=== PATIENT | male | born 1975 | race Caucasian/White ===

== ENCOUNTER 2019-02-07 18:39 | Emergency (ER) | payer SELFPAY ==
--- NOTE | 2019-02-07 18:50 | PDOC ---
Rapid Medical Evaluation Chief Complaint: Abscess Boil Time Seen by Provider: 02/07/19 18:47 Medical Evaluation: 02/07/19 18:48 Patient c/o: 1 week with redness and pain to left buttock, no fever, no diff w/ BM Patient on brief exam:palpable non fluctulant erythematous mass to lower left buttock, no perianal or rectal involvement Patient ordered for: none patient to proceed to the ED
[2019-02-07 18:56] VITALS: BP 121/71; PULSE 93; TEMP 99.6; BMI 27.8
--- NOTE | 2019-02-07 19:14 | PDOC ---
History of Present Illness - General Chief Complaint: Abscess Boil Stated Complaint: BACK PAIN/BILATERAL LEG PAIN Time Seen by Provider: 02/07/19 18:47 History Source: Patient Exam Limitations: No Limitations - History of Present Illness Initial Comments: 02/07/19 19:09 HISTORY OF PRESENT ILLNESS: 43-year-old male denies medical history presents emergency for for 1 week of left buttock pain. He denies any fevers, chills, discharge or drainage or perirectal pain. Patient denies any difficulty moving his bowels. No recent travel or sick contacts. PAST MEDICAL HISTORY: Denies past medical history SURGICAL HISTORY: Denies ALLERGIES: No known drug allergies REVIEW OF SYSTEMS General/Constitutional: Denies fever or chills. Denies weakness, weight change. HEENT: Denies change in vision. Denies ear pain or discharge. Denies sore throat. Cardiovascular: Denies chest pain or shortness of breath. Respiratory: Denies cough, wheezing, or hemoptysis. Gastrointestinal: Denies nausea, vomiting, diarrhea or constipation. Denies rectal bleeding. Genitourinary: Denies dysuria, frequency, or change in urination. Musculoskeletal: Denies joint or muscle swelling or pain. Denies neck or back pain. Skin and breasts: see HPI Neurologic: Denies headache, vertigo, loss of consciousness, or loss of sensation. Psychiatric: Denies depression or anxiety. Endocrine: Denies increased thirst. Denies abnormal weight change. Hematologic/Lymphatic: Denies anemia, easy bleeding, or history of blood clots. Allergic/Immunologic: Denies hives or skin allergy. Denies latex allergy. PHYSICAL EXAM General Appearance: Well-appearing, appropriately dressed. No apparent distress , no intoxication. Integumentary: 5 cm x 4 cm ovoid area of erythema present to the left buttock on the gluteal fold. No fluctuance is present. No extension into the anus or rectum. Past History - Past Medical History Allergies/Adverse Reactions: Allergies Allergy/AdvReac Type Severity Reaction Status Date / Time No Known Allergies Allergy Verified 02/07/19 18:48 Home Medications: Ambulatory Orders Cephalexin Monohydrate [Keflex -] 500 mg PO Q6H #28 capsule 02/07/19 Sulfamethoxazole/Trimethoprim [Bactrim Ds -] 1 tab PO BID #14 tablet 02/07/19 - Suicide/Smoking/Psychosocial Hx Smoking History: Never smoked *Physical Exam - Vital Signs Last Vital Signs Temp Pulse Resp BP Pulse Ox 99.6 F 93 H 16 121/71 99 02/07/19 18:45 02/07/19 18:45 02/07/19 18:45 02/07/19 18:45 02/07/19 18:45 Medical Decision Making - Medical Decision Making 02/07/19 19:14 A/P: 43-year-old male with cellulitis of his left buttock Discharge home with prescriptions for Keflex and Bactrim instructions to apply warm soaks. Patient given strict return precautions and is verbalized understanding of discharge instructions. Portions of this note have been documented using voice recognition software. As a result, errors may occur in the chrome tanning drum operator process. Effort has been made to correct all grammatical and chrome tanning drum operator error, but some may have been missed. *DC/Admit/Observation/Transfer Diagnosis at time of Disposition: Cellulitis of buttock, left - Discharge Dispostion Disposition: HOME Condition at time of disposition: Stable Decision to Admit order: No - Prescriptions Prescriptions: Cephalexin Monohydrate [Keflex -] 500 mg PO Q6H #28 capsule Sulfamethoxazole/Trimethoprim [Bactrim Ds -] 1 tab PO BID #14 tablet - Referrals - Patient Instructions Additional Instructions: Take Keflex 500 mg 4 times a day for the next 7 days Take Bactrim DS one tablet twice a day for the next 7 days Finish all antibiotics even if you feel better. Apply warm compresses to affected area as needed. Return to emergency department for any worsening pain, drainage, or any other concerns. Thank you very much for choosing us to provide your emergent health care needs. - Post Discharge Activity
== END 2019-02-07 19:26 | disposition home or self-care (01) ==
LOC: JERFT 18:39
DX: L03.317 Cellulitis of buttock (principal)
CPT/HCPCS: 99281-25

== ENCOUNTER 2019-02-10 08:01 | Emergency (ER) | payer SELFPAY ==
[2019-02-10 08:09] VITALS: BP 109/70; PULSE 87; TEMP 98.1; BMI 29.2
--- NOTE | 2019-02-10 08:43 | PDOC ---
History of Present Illness - General Chief Complaint: Revisit,Wound Recheck Stated Complaint: ABSCESS BOIL Time Seen by Provider: 02/10/19 08:28 History Source: Patient Exam Limitations: No Limitations - History of Present Illness Initial Comments: 02/10/19 08:37 43 year old male presentswith pain in left buttocks x 1-2 weeks. Patient seen here on Sunday for the same, treated with keflex and bactrim DS. Patient reports that pain persist to the area even though he is taking antibiotics as prescribed and tylenol for pain. Patient states that area is very tender. Denies fever, chills or worsening in symptoms but states symptoms persist. Occurred: reports: last week Severity: reports: mild Pain Location: reports: other (buttocks) Method of Injury: Yes: unknown Modifying Factors: worse with: None Associated Symptoms (Fall): denies symptoms Past History - Travel Traveled outside of the country in the last 30 days: No Close contact w/someone who was outside of country & ill: No - Past Medical History Allergies/Adverse Reactions: Allergies Allergy/AdvReac Type Severity Reaction Status Date / Time No Known Allergies Allergy Verified 02/07/19 18:48 Home Medications: Ambulatory Orders Cephalexin Monohydrate [Keflex -] 500 mg PO Q6H #28 capsule 02/07/19 Sulfamethoxazole/Trimethoprim [Bactrim Ds -] 1 tab PO BID #14 tablet 02/07/19 Ibuprofen 800 mg PO TID #20 tablet 02/10/19 COPD: No - Suicide/Smoking/Psychosocial Hx Smoking History: Never smoked Have you smoked in the past 12 months: No Information on smoking cessation initiated: No Hx Alcohol Use: No Drug/Substance Use Hx: No Trauma Specific PMHX - Complaint Specific PMHX Arthritis: No Back Injury: No Neck Injury: No Hx Sacro Iliac Joint Dysfunction: No Review of Systems - Review of Systems Constitutional: No: Chills, Fever, Weakness HEENTM: No: Hearing Loss, Throat Pain, Throat Swelling, Mouth Pain, Difficulty Swallowing, Mouth Swelling Respiratory: No: Wheezing Cardiac (ROS): No: Chest Pain, Syncope ABD/GI: No: Nausea, Poor Appetite, Poor Fluid Intake, Vomiting, Abdominal cramping : No: Burning, Hematuria, Testicular Swelling Musculoskeletal: No: Back Pain, Gout, Neck Pain Integumentary: Yes: Other (left buttocks pain). No: Erythema Neurological: No: Numbness, Paresthesia, Weakness Endocrine: No: Change in Weight Hematologic/Lymphatic: No: Anemia, Blood Clots, Easy Bleeding *Physical Exam - Vital Signs Last Vital Signs Temp Pulse Resp BP Pulse Ox 98.1 F 87 18 109/70 96 02/10/19 08:05 02/10/19 08:05 02/10/19 08:05 02/10/19 08:05 02/10/19 08:05 - Physical Exam General Appearance: Yes: Nourished, Appropriately Dressed HEENT: positive: EOMI, BRYAN, Pharynx Normal Neck: positive: Supple. negative: Lymphadenopathy (R), Lymphadenopathy (L) Respiratory/Chest: positive: Lungs Clear, Normal Breath Sounds Cardiovascular: positive: Regular Rhythm, Regular Rate Extremity: positive: Normal Capillary Refill, Normal Inspection Integumentary: positive: Other (+indurated area on lower portion of left buttocks, tender to touch, no fluctuance, no erythema) Neurologic: positive: Fully Oriented, Alert Medical Decision Making - Medical Decision Making 02/10/19 08:41 43 year old male presents for persistent pain of left buttocks on keflex and bactrim DS cellulitis of buttocks -encouraged to continue medication as prescribed -rx: ibuprofen *DC/Admit/Observation/Transfer Diagnosis at time of Disposition: Cellulitis of buttock, left - Discharge Dispostion Disposition: HOME Condition at time of disposition: Good Decision to Admit order: No - Prescriptions Prescriptions: Ibuprofen 800 mg PO TID #20 tablet - Referrals Referrals: [facility] [Provider Group] - Patient Instructions Printed Discharge Instructions: Boil Print Language: [place] - Post Discharge Activity Forms/Work/School Notes: Back to Work
== END 2019-02-10 08:48 | disposition home or self-care (01) ==
LOC: JERFT 08:01
DX: L03.317 Cellulitis of buttock (principal)
CPT/HCPCS: 99281-25

== ENCOUNTER 2019-02-14 19:24 | Inpatient (IN) | payer OTHER ==
--- NOTE | 2019-02-14 19:40 | PDOC ---
Rapid Medical Evaluation Medical Evaluation: Allergies Allergy/AdvReac Type Severity Reaction Status Date / Time No Known Allergies Allergy Verified 02/10/19 08:49 I have performed a brief in-person evaluation of this patient. The patient presents with a chief complaint of: c/o L buttock infection; was here 2 times prior for this, told it was cellulitis and is on abx but states it is not improving Pertinent physical exam findings: Exam deferred in triage chatman I have ordered the following: Nothing The patient will proceed to the ED for further evaluation. 02/14/19 19:37
[2019-02-14 19:42] VITALS: BMI 26.5
--- NOTE | 2019-02-14 20:15 | PDOC ---
Attending Attestation - Resident Resident Name: TipFadi - ED Attending Attestation I have performed the following: I have examined & evaluated the patient, The case was reviewed & discussed with the resident, I agree w/resident's findings & plan - HPI HPI: 02/14/19 21:33 Pt was seen here on 02/07 for buttock cellulitis; started on keflex and bactrim. Returned on 02/10 for not feeling much better; sent home with NSAIDS and asked to contiinue meds. Now with continued enlargening of the buttock abscess. He has pain - Physicial Exam PE: 02/14/19 21:34 Agree with resident exam. Pt's left buttock cleft area leading into the rectum area -- pt has a 4.5 cm x 3.5 cm area of induration. Pt has some tenderness in the area. - Medical Decision Making 02/14/19 21:36 Preop labs; general surgeon is aware. Bedside US shows no fluid collection. Pt will be sent for a CT with contrast of the pelvis/buttock/rectum. Labs pending. 02/15/19 01:38 Patient Name: NOHEMI CALHOUN THIS IS A PRELIMINARY REPORT FROM [facility] DATE OF SERVICE: 2019-02-15 00:13:26 IMAGES: 408 EXAM: PELVIS CT WITH CONTRAST . Axial acquired images obtained followed by coronal and sagittal reconstructions. Intravenous contrast, 94 mL Omni HISTORY: 43-year-old male with abscess COMPARISON: None. Findings: No diastases or erosive changes of the sacroiliac joints identified. No evidence of a sacral decubitus ulcer. No findings of pelvic osteomyelitis. Patient demonstrates a left-sided perianal abscess measuring 3.4 x 3.0 x 2.1 cm. The abscess cavity extending into the ischiorectal fat on the left side. No perirectal extension identified. Scattered diverticuli noted sigmoid colon. The terminal ileum and appendix within normal limits. Visualized portion of the bowel and mesentery are unremarkable. No free intraperitoneal air or fluid identified in the pelvis. Bladder not well distended. Prostate gland and seminal vesicles normal configuration. Impression: 1. Left-sided perianal abscess measuring 3.4 x 3.0 x 2.1 cm
[2019-02-14] MEDS ORDERED: morphine CARPU-JECT 4 MG/1 ML DISP.SYRIN IVPUSH ONE (21:04)
--- NOTE | 2019-02-14 21:16 | PDOC ---
History of Present Illness - General Chief Complaint: Wound Stated Complaint: INFECTION Time Seen by Provider: 02/14/19 19:37 - History of Present Illness Initial Comments: 02/14/19 21:08 43 y/o/m here for cellulitis of his left buttocks. He was seen here a week ago and prescribed Bactrim and Keflex which he states he has been taking. He should be finishing his course of medications today but he states he still has a few pills left of both medications. He was seen again on Sunday this week for pain and was told to take Ibuprofen for pain. He has not been taking the ibuprofen as he states he "did not want to mix his medications." He states he has pain when he has to sit and wants the cellulitis cut off. He denies any fevers at home. He denies any chest pain, abd pain, pain with bowel movements or blood in his stool. Past History - Past Medical History Allergies/Adverse Reactions: Allergies Allergy/AdvReac Type Severity Reaction Status Date / Time No Known Allergies Allergy Verified 02/14/19 19:42 Home Medications: Ambulatory Orders Cephalexin Monohydrate [Keflex -] 500 mg PO Q6H #28 capsule 02/07/19 Sulfamethoxazole/Trimethoprim [Bactrim Ds -] 1 tab PO BID #14 tablet 02/07/19 Ibuprofen 800 mg PO TID #20 tablet 02/10/19 COPD: No - Suicide/Smoking/Psychosocial Hx Smoking History: Never smoked Have you smoked in the past 12 months: No Information on smoking cessation initiated: No Hx Alcohol Use: No Drug/Substance Use Hx: No Review of Systems - Review of Systems Constitutional: No: Chills, Fever HEENTM: No: Nose Congestion Respiratory: No: Shortness of Breath Cardiac (ROS): No: Chest Pain ABD/GI: No: Diarrhea, Nausea, Vomiting Musculoskeletal: No: Back Pain Integumentary: Yes: Other (cellulitis of left buttocks) Neurological: No: Headache Endocrine: No: Excessive Sweating *Physical Exam - Vital Signs Last Vital Signs Temp Pulse Resp BP Pulse Ox 98.5 F 77 18 125/83 100 02/14/19 19:40 02/14/19 19:40 02/14/19 19:40 02/14/19 19:40 02/14/19 19:40 - Physical Exam General Appearance: Yes: Nourished, Appropriately Dressed HEENT: positive: EOMI, Normal Voice, Symmetrical Neck: positive: Trachea midline, Supple Respiratory/Chest: positive: Lungs Clear, Normal Breath Sounds Cardiovascular: positive: Regular Rhythm, Regular Rate, S1, S2 Gastrointestinal/Abdominal: positive: Normal Bowel Sounds, Soft. negative: Tender Musculoskeletal: negative: Vertebral Tenderness Extremity: positive: Normal Capillary Refill Integumentary: positive: Other (indurated 4x2.5cm cellulitis over the left gluteal fold with induration tracking towards the rectum. no fluctuance, warmth , or erythema. tenderness to palpation) Neurologic: positive: Fully Oriented, Alert, Motor Strength / ED Treatment Course - LABORATORY CBC & Chemistry Diagram: 02/14/19 21:43 02/14/19 21:43 Medical Decision Making - Medical Decision Making 02/14/19 21:18 43 y/o/m here for cellulitis of his left buttocks. He was seen here a week ago and prescribed Bactrim and Keflex which he states he has been taking. He should be finishing his course of medications today but he states he still has a few pills left of both medications. -On exam 4x2.5cm indurated cellulitis felt over left gluteal fold. No fluctuance , erythema, warmth, drainage. -On U/S exam no fluid pocket appreciated. -Spoke with Dr. Gonzalez, general surgery. -Will likely admit patient for failure of outpatient therapy. 02/14/19 21:51 -Spoke with Dr. Gonzalez, recommended to obtain labs, CT with contrast, and admit patient for failed outpatient therapy. -Started patient on Clinda and Zosyn. -Will obtain CT pending labs. -Morphine given for pain control. 02/14/19 22:36 -CT abd/pelvis ordered. -CBC, CMP grossly normal. 02/15/19 01:35 -CT read - left sided perianal abscess measuring 3.4x3.0x2.1cm. The abscess cavity extending into the ischiorectal fat on the left side. -Admitting team microblogged for admission. 02/15/19 02:27 -Patient admitted under Dr. Pollard under med/surg *DC/Admit/Observation/Transfer Diagnosis at time of Disposition: Cellulitis of buttock, left, Perianal abscess - Discharge Dispostion Condition at time of disposition: Stable Decision to Admit order: Yes - Referrals - Patient Instructions - Post Discharge Activity
[2019-02-14] MEDS ORDERED: CLINDAMYCIN 600MG PREMIX IVPB 600 MG/50 ML BAG IVPB ONE ×2 (21:34→21:52)
[2019-02-14] MEDS ORDERED: SODIUM CHLORIDE 1,000 ML IV STA (21:35)
[2019-02-14] MEDS ORDERED: MORPHINE SULFATE 2 MG/ML VIAL ONE (21:36)
[2019-02-14 22:13] LABS: BASO % 2.1 % (0-2.0); EOS % 6.7 % (0-4.5); HEMATOCRIT 37.7 % (35.4-49); HEMOGLOBIN 13.2 GM/dL (11.7-16.9); LYMPH % 33.8 % (8-40); MCH 31.7 pg (25.7-33.7); MEAN CELL VOLUME 90.5 fl (80-96); MEAN PLT VOLUME 7.6 fl (7.5-11.1); MONO % 14.4 % (3.8-10.2); PLATELET COUNT 288 K/MM3 (134-434); RBC 4.17 M/mm3 (4.00-5.60); RDW 12.7 % (11.9-15.9); WHITE BLOOD COUNT 3.6 K/mm3 (4.0-10.0)
[2019-02-14 22:17] LABS: INR 1.09 (0.83-1.09); PROTHROMBIN TIME (PATIENT) 12.9 SEC (9.7-13.0)
[2019-02-14 22:30] LABS: ALBUMIN 3.4 g/dl (3.4-5.0); BILIRUBIN,TOTAL 0.3 mg/dL (0.2-1); BLOOD UREA NITROGEN 18.1 mg/dL (7-18); CALCIUM 8.6 mg/dL (8.5-10.1); CREATININE 0.7 mg/dL (0.55-1.3); POTASSIUM 3.6 mmol/L (3.5-5.1); TOT PROT 7.8 g/dl (6.4-8.2)
[2019-02-14] MEDS ORDERED: PIPERACILLIN/TAZOB 4.5 GM 4.5 GM in DEXTROSE 5%-WATER 100 ML IVPB ONE (22:37)
[2019-02-14] MEDS ORDERED: PIPERACILLIN/TAZOB 4.5 GM 4.5 GM/100 ML BAG IVPB ONE (23:10)
--- NOTE | 2019-02-15 02:26 | HP ---
CHIEF COMPLAINT: Left gluteal pain PCP: None HISTORY OF PRESENT ILLNESS: 43 y/o male with no offered PMH presents to the ED for the third time c/o left gluteal pain. On 07 February 2019 the patient came to the ED c/o on the pain, an induration was identified and he was prescribed bactrim and keflex. The patient did not complete the course as prescribed because when he returned to the ED on 10 Feb 2019 c/o the pain he was rx Motrin, which he did not take concurrently with the antibiotics. Pt here today 15 February 2019 because the pain has worsened. The pain is located at the LEFT gluteal fold, 2-3cm away from the rectum. The pain is directly associated with a 3x5 cm ovoid induration that is red, warm, and tender. Pain is non-radiating, better with Motrin, and 8/ 10. Skin is intact. The pt states that he first noticed a discomfort/itchiness on the left gluteal fold 3 weeks ago. The pain became worse by 2 weeks ago and 1 week ago he noted the induration, which prompted him to come to the ED. He denies any issues with passing stool; no pain, no bleeding. He denies SOB, CP, chills, NVFD. ER course was notable for: (1) Motrin 600 mg given for pain (2) US showed NO fluid pocket and NO I&D was attempted (3) CT: perianal abscess, cavitating, ischiorectal fat Recent Travel: Denies PAST MEDICAL HISTORY: Reports no medical illness PAST SURGICAL HISTORY: Pt reports he has an abdominal surgery when he was 1 years old but is unsure of the procedure. He describes it as, "removal of a ball." Social History: Smoking: Denies Alcohol: Social Drugs: Denies Allergies: No Known Allergies Allergy (Verified 02/14/19 19:42) HOME MEDICATIONS: Home Medications Medication Instructions Recorded Cephalexin Monohydrate [Keflex -] 500 mg PO Q6H #28 capsule 02/07/19 Sulfamethoxazole/Trimethoprim 1 tab PO BID #14 tablet 02/07/19 [Bactrim Ds -] Ibuprofen 800 mg PO TID #20 tablet 02/10/19 REVIEW OF SYSTEMS CONSTITUTIONAL: Absent: fever, chills, diaphoresis, generalized weakness, malaise, loss of appetite, weight change HEENT: Absent: rhinorrhea, nasal congestion, throat pain, throat swelling, difficulty swallowing, mouth swelling, ear pain, eye pain, visual changes CARDIOVASCULAR: Absent: chest pain, syncope, palpitations, irregular heart rate, lightheadedness , peripheral edema RESPIRATORY: Absent: cough, shortness of breath, dyspnea with exertion, orthopnea, wheezing, stridor, hemoptysis GASTROINTESTINAL: Absent: abdominal pain, abdominal distension, nausea, vomiting, diarrhea, constipation, melena, hematochezia GENITOURINARY: Absent: dysuria, frequency, urgency, hesitancy, hematuria, flank pain, genital pain MUSCULOSKELETAL: Absent: myalgia, arthralgia, joint swelling, back pain, neck pain SKIN: Absent: rash, itching, pallor HEMATOLOGIC/IMMUNOLOGIC: Absent: easy bleeding, easy bruising, lymphadenopathy, frequent infections ENDOCRINE: Absent: unexplained weight gain, unexplained weight loss, heat intolerance, cold intolerance NEUROLOGIC: Absent: headache, focal weakness or paresthesias, dizziness, unsteady gait, seizure, mental status changes, bladder or bowel incontinence PSYCHIATRIC: Absent: anxiety, depression, suicidal or homicidal ideation, hallucinations. PHYSICAL EXAMINATION Vital Signs - 24 hr 02/14/19 02/14/19 19:40 21:03 Temperature 98.5 F 97.9 F Pulse Rate 77 Pulse Rate [ 68 Left Apical] Respiratory 18 18 Rate Blood Pressure 125/83 Blood Pressure 92/48 L [Right Arm] O2 Sat by Pulse 100 100 Oximetry (%) GENERAL: Awake, alert, and fully oriented, in no mild distress, laying on RIGHT lateral decubitus HEAD: Normocephalic with healed linear scar on LEFT side of face near eye EYES: Pupils equal, round and reactive to light, extraocular movements intact, sclera anicteric, conjunctiva clear. No lid lag. EARS, NOSE, THROAT: Ears normal, nares patent, oropharynx clear without exudates. Moist mucous membranes. NECK: Normal range of motion, supple without lymphadenopathy, JVD, or masses. LUNGS: Breath sounds equal, clear to auscultation bilaterally. No wheezes, and no crackles. No accessory muscle use. HEART: Regular rate and rhythm, normal S1 and S2 without murmur, rub or gallop. ABDOMEN: Large surgical site scars. 1 linear, 1 circular. Soft, nontender, not distended, normoactive bowel sounds, no guarding, no rebound, no masses. No hepatomegaly or splenomegaly. MUSCULOSKELETAL: Normal range of motion at all joints. No bony deformities or tenderness. No CVA tenderness. UPPER EXTREMITIES: 2+ pulses, warm, well-perfused. No cyanosis. No clubbing. No peripheral edema. LOWER EXTREMITIES: 2+ pulses, warm, well-perfused. No calf tenderness. No peripheral edema. NEUROLOGICAL: Cranial nerves II-XII intact. Normal speech. Normal gait. PSYCHIATRIC: Cooperative. Good eye contact. Appropriate mood and affect. SKIN: 3x2 cm ovoid induration on LEFT buttock. Skin in tact, warm, red, tender. Dry, normal turgor, no rashes or lesions noted, normal capillary refill. Laboratory Results - last 24 hr 02/14/19 02/14/19 02/14/19 21:43 21:43 21:43 WBC 3.6 L RBC 4.17 Hgb 13.2 Hct 37.7 MCV 90.5 MCH 31.7 MCHC 35.0 RDW 12.7 Plt Count 288 MPV 7.6 Absolute Neuts (auto) 1.6 Neutrophils % 43.0 Lymphocytes % 33.8 Monocytes % 14.4 H Eosinophils % 6.7 H Basophils % 2.1 H Nucleated RBC % 0 PT with INR 12.90 INR 1.09 PTT (Actin FS) 38.0 H Sodium 138 Potassium 3.6 Chloride 106 Carbon Dioxide 26 Anion Gap 7 L BUN 18.1 H Creatinine 0.7 Est GFR (CKD-EPI)AfAm 133.02 Est GFR (CKD-EPI)NonAf 114.77 Random Glucose 101 Calcium 8.6 Total Bilirubin 0.3 AST 19 ALT 30 Alkaline Phosphatase 94 Total Protein 7.8 Albumin 3.4 Blood Type Antibody Screen 02/14/19 21:43 WBC RBC Hgb Hct MCV MCH MCHC RDW Plt Count MPV Absolute Neuts (auto) Neutrophils % Lymphocytes % Monocytes % Eosinophils % Basophils % Nucleated RBC % PT with INR INR PTT (Actin FS) Sodium Potassium Chloride Carbon Dioxide Anion Gap BUN Creatinine Est GFR (CKD-EPI)AfAm Est GFR (CKD-EPI)NonAf Random Glucose Calcium Total Bilirubin AST ALT Alkaline Phosphatase Total Protein Albumin Blood Type O POSITIVE Antibody Screen Negative ASSESSMENT/PLAN: 43 y/o male with no offered PMH presents to the ED for the third time c/o left gluteal pain. Failed out pt treatment with bactrim and keflex # Aleja-anal abscess - CT (+) for abcess - No fluid pocket - Surgery consulted (Dr. Gonzalez) - Start clindamycin and zosyn - Motrin for pain # F/E/N - No standing fluids - Cont. to monitor electrolytes - Regular diet # DVT prophylaxis - Heparin sq # Dispo - Observation Nico Marie MD Visit type - Emergency Visit Emergency Visit: Yes ED Registration Date: 02/15/19 Care time: The patient presented to the Emergency Department on the above date and was hospitalized for further evaluation of their emergent condition. - New Patient This patient is new to me today: Yes Date on this admission: 02/25/19 - Critical Care Critical Care patient: No ATTENDING PHYSICIAN STATEMENT I saw and evaluated the patient. I reviewed the resident's note and discussed the case with the resident. I agree with the resident's findings and plan as documented. SUBJECTIVE: OBJECTIVE: ASSESSMENT AND PLAN:
[2019-02-15] MEDS ORDERED: IBUPROFEN 600 MG TABLET (FP) PO ONE ×2 (02:58→03:31)
[2019-02-15] MEDS ORDERED: HEPARIN NA (PORCINE) 5,000 UNITS/ML 1ML VIAL ONE ×2 (04:19→06:08)
--- NOTE | 2019-02-15 04:25 | PN ---
Teaching Attending Note Name of Resident: Nico Marie ATTENDING PHYSICIAN STATEMENT I saw and evaluated the patient. I reviewed the resident's note and discussed the case with the resident. I agree with the resident's findings and plan as documented. SUBJECTIVE: 43 y/o man with left perianal abscess seen on pelvis CT. He was seen here a week ago and prescribed Bactrim and Keflex for cellulitis visible at that time. He had taken those antibiotics however minimal response and continued pain. he returned to ER on 02/10 and again 02/14. Pt states he is otherwise healthy and does not take meds for anything. Denied fevers. OBJECTIVE: Last Vital Signs Temp Pulse Resp BP Pulse Ox 97.9 F 68 18 92/48 L 100 02/14/19 21:03 02/14/19 21:03 02/14/19 21:03 02/14/19 21:03 02/14/19 21:03 gen - nad, aaox3 heent- at, nc cv-s1+s2+rrr chest clear buttock -left perianal fluctuance, tender to palpation Abnormal Lab Results 02/14/19 02/14/19 02/14/19 21:43 21:43 21:43 WBC 3.6 L Monocytes % 14.4 H Eosinophils % 6.7 H Basophils % 2.1 H PTT (Actin FS) 38.0 H Anion Gap [address] of pelvis showed 3.4x3x2.1cm left perianal abscess ASSESSMENT AND PLAN: #perirectal abscess #leukopenia -med/surg -npo -pain control- morphine IV prn -iv fluid hydration -vancomycin -zosyn
[2019-02-15] MEDS ORDERED: VANCOMYCIN 1,000 MG in DEXTROSE 5%-WATER - 250 ML IVPB SCH (04:30)
[2019-02-15] MEDS ORDERED: PIPERACILLIN/TAZOB 3.375 GM 3.375 GM in DEXTROSE 5%-WATER - 50 ML IVPB SCH (04:30)
[2019-02-15] MEDS ORDERED: VANCOMYCIN 1 GRAM (PRE-DOCKED) 1,000 MG/250 ML BAG IVPB ONE ×2 (04:30→05:32)
[2019-02-15] MEDS: LACTATED RINGERS SOLUTION 1,000 ML IV SCH (04:50)
[2019-02-15] MEDS ORDERED: PIPERACILLIN/TAZOB 3.375 GM 3.375 GM/50 ML BAG IVPB ONE (05:32)
[2019-02-15] MEDS: HEPARIN NA (PORCINE) 5,000 UNITS/ML 1ML VIAL SQ SCH ×3 (06:12→22:24)
[2019-02-15 08:07] LABS: HEMATOCRIT 38.1 % (35.4-49); HEMOGLOBIN 13.2 GM/dL (11.7-16.9); MCH 31.6 pg (25.7-33.7); MCHC 34.7 g/dl (32.0-35.9); MEAN CELL VOLUME 91.1 fl (80-96); MEAN PLT VOLUME 7.5 fl (7.5-11.1); PLATELET COUNT 295 K/MM3 (134-434); RBC 4.18 M/mm3 (4.00-5.60); RDW 12.9 % (11.9-15.9); WHITE BLOOD COUNT 7.2 K/mm3 (4.0-10.0)
--- NOTE | 2019-02-15 11:51 | PN ---
Progress Note (short form) - Note Progress Note: ID consult dictated imp/reccd 43 yo healthy man- no PMH (denies DM) no fevers seen in ED 02/07, 02/10- treated with bactrim and keflex as oupt returns 02/15 with worsening gluteal pain Left perirectal abscess no signs perineal extension, no erythema or crepitus not toxic npo, surgery to see michael/[place] Problem List - Problems (1) Perianal abscess Code(s): K61.0 - ANAL ABSCESS
[2019-02-15] MEDS: PIPERACILLIN/TAZOB 4.5 GM 4.5 GM in DEXTROSE 5%-WATER 100 ML IVPB SCH ×2 (13:15→17:34)
[2019-02-15] MEDS ORDERED: PIPERACILLIN/TAZOBACTAM 4.5 GM VIAL IVPB ONE ×2 (14:39→17:12)
[2019-02-15] MEDS ORDERED: DEXTROSE 5%-WATER 100 ML IVPB ONE ×2 (14:39→17:14)
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
--- NOTE | 2019-02-15 17:43 | CONS ---
DATE OF CONSULTATION: 12/20/2017 CONSULTATION REQUESTED BY: Hospitalist Service HISTORY OF PRESENT ILLNESS: The patient is a 43-year-old male who is healthy with no prior history. He denies diabetes. He presented to the ER on February 07 with left gluteal pain. He was noted to have an indurated area on his left buttock near the cleft. He was given Bactrim and Keflex. He returned on February 10 with worsening pain. He was reevaluated and was noted to have persistent pain despite the antibiotics and use of Tylenol. He was noted to have an area of induration on the lower aspect of his left buttock that was tender to touch. He was given Motrin and told to continue his Keflex and Bactrim. He then returned on February 14 with complaints of worsening pain. He had no fevers or chills. He was admitted and had a pelvic CT that showed a left perianal collection. He has no history of recent travel. PAST MEDICAL HISTORY: Negative. He has never had diabetes or other illnesses. PAST SURGICAL HISTORY: He had surgery at age [age]. FAMILY HISTORY: Noncontributory. SOCIAL HISTORY: The patient is from [place] and is . He has no history of cigarettes, alcohol or substance abuse. ALLERGIES: No known drug allergies. HOME MEDICATIONS: Motrin, Bactrim and Keflex. REVIEW OF SYSTEMS: As per HPI, mainly notable for left buttock pain. PHYSICAL EXAMINATION: General: He is awake and alert. Vital Signs: Temperature is 97.5, pulse 62, blood pressure 127/63, respiratory rate 20. HEENT: Normocephalic. His eyes are anicteric. Neck: Supple. Lungs: Clear to auscultation. Heart: Regular rate and rhythm. Abdomen: Soft, nontender. He has a 4-cm x 5-cm area of induration on his left buttock. There is no extension of this to his perineum or to his scrotum. Of note, the patient reports that he has never had an abscess in the past. A CT scan shows a left perianal abscess. LABORATORY DATA: Notable for a white count 7.2. Hemoglobin is 13.2, platelets are 295. His BUN and creatinine are 18 and 0.7. LFTs are normal. In summary, this is a 43-year-old man admitted with a perirectal abscess. He is not toxic. There are no signs of perineal extension, erythema or crepitus. He is n.p.o. for surgery for drainage. Would continue vancomycin and Zosyn. Further recommendations to follow. Kaylene CASEY/[id number] MTDD
[2019-02-15] MEDS: VANCOMYCIN 1 GRAM (PRE-DOCKED) 1,000 MG/250 ML BAG IVPB SCH (18:15)
[2019-02-15] MEDS: PIPERACILLIN/TAZOB 3.375 GM 3.375 GM in DEXTROSE 5%-WATER - 50 ML IVPB SCH (19:40)
[2019-02-15] MEDS: MORPHINE SULFATE 2 MG/ML VIAL IVPUSH PRN (22:26)
--- NOTE | 2019-02-15 23:41 | EKG ---
Test Reason : Blood Pressure : / mmHG Vent. Rate : 067 BPM Atrial Rate : 067 BPM P-R Int : 216 ms QRS Dur : 096 ms QT Int : 376 ms P-R-T Axes : 050 041 045 degrees QTc Int : 397 ms SINUS RHYTHM WITH 1ST DEGREE A-V BLOCK OTHERWISE NORMAL ECG NO PREVIOUS ECGS AVAILABLE Confirmed by JAKE REHMAN MD ([id number]) on 02/15/2019 11:40:59 PM Referred By: Confirmed By:JAKE REHMAN MD
[2019-02-16] MEDS ORDERED: DEXTROSE 5%-WATER 100 ML IVPB ONE (01:20)
[2019-02-16] MEDS ORDERED: PIPERACILLIN/TAZOBACTAM 4.5 GM VIAL IVPB ONE ×3 (01:20→09:35)
[2019-02-16] MEDS: PIPERACILLIN/TAZOB 4.5 GM 4.5 GM in DEXTROSE 5%-WATER 100 ML IVPB SCH ×3 (01:50→19:10)
[2019-02-16] MEDS: HEPARIN NA (PORCINE) 5,000 UNITS/ML 1ML VIAL SQ SCH (05:21)
[2019-02-16] MEDS: VANCOMYCIN 1 GRAM (PRE-DOCKED) 1,000 MG/250 ML BAG IVPB SCH ×2 (05:22→17:42)
[2019-02-16] MEDS: MORPHINE SULFATE 2 MG/ML VIAL IVPUSH PRN (05:23)
[2019-02-16 07:39] LABS: EOS % 3.8 % (0-4.5); HEMATOCRIT 38.2 % (35.4-49); HEMOGLOBIN 13.5 GM/dL (11.7-16.9); LYMPH % 26.1 % (8-40); MCH 32.2 pg (25.7-33.7); MCHC 35.3 g/dl (32.0-35.9); MEAN CELL VOLUME 91.1 fl (80-96); MEAN PLT VOLUME 7.3 fl (7.5-11.1); MONO % 10.4 % (3.8-10.2); NEUT % 58.7 % (42.8-82.8); PLATELET COUNT 285 K/MM3 (134-434); RBC 4.19 M/mm3 (4.00-5.60); RDW 12.7 % (11.9-15.9); WHITE BLOOD COUNT 4.1 K/mm3 (4.0-10.0)
[2019-02-16 07:57] LABS: BILIRUBIN,TOTAL 0.9 mg/dL (0.2-1); BLOOD UREA NITROGEN 6.3 mg/dL (7-18); CALCIUM 8.2 mg/dL (8.5-10.1); CREATININE 0.6 mg/dL (0.55-1.3); MAGNESIUM 2.2 mg/dL (1.8-2.4); POTASSIUM 3.6 mmol/L (3.5-5.1); TOT PROT 7.1 g/dl (6.4-8.2)
[2019-02-16] MEDS ORDERED: ONDANSETRON 4 MG/2 ML VIAL IVPUSH PRN (08:55)
[2019-02-16] MEDS ORDERED: PROMETHAZINE HCL 25 MG/1 ML VIAL IVPUSH PRN (08:55)
[2019-02-16] MEDS ORDERED: oxyCODONE HCL 5 MG TABLET PO PRN ×2 (08:55→11:01)
[2019-02-16] MEDS ORDERED: MIDAZOLAM HCL 2 MG/2 ML SINGLE DOSE VIAL ONE ×2 (09:21→09:46)
--- NOTE | 2019-02-16 09:45 | PN ---
Physical Exam: SUBJECTIVE: Patient seen and examined; abx per ID and to OR today with Dr. Gonzalez. Seen in recovery; drain inserted may be removed OP. Had spinal anesthesia. Pain controlled. Will likely DC in AM as still no urine, etc. 10 sys ROS done and negative aside from HPI OBJECTIVE: Vital Signs Period Temp Pulse Resp BP Sys/Rodas Pulse Ox Last 24 Hr 97.5 F-98.6 F 56-66 18-20 99-127/62-75 GENERAL: The patient is awake, alert, and fully oriented, in no acute distress. HEAD: Normal with no signs of trauma. EYES: PERRL, extraocular movements intact, sclera anicteric, conjunctiva clear. No ptosis. ENT: Ears normal, nares patent, oropharynx clear without exudates, moist mucous membranes. NECK: Trachea midline, full range of motion, supple. LUNGS: Breath sounds equal, clear to auscultation bilaterally, no wheezes, no crackles, no accessory muscle use. HEART: Regular rate and rhythm, S1, S2 without murmur, rub or gallop. ABDOMEN: Soft, nontender, nondistended, normoactive bowel sounds, no guarding, no rebound, no hepatosplenomegaly, no masses. EXTREMITIES: 2+ pulses, warm, well-perfused, no edema. NEUROLOGICAL: Cranial nerves II through XII grossly intact. Normal speech, gait not observed. PSYCH: Normal mood, normal affect. SKIN: Warm, dry, normal turgor, no rashes or lesions noted Rectal: Normal tone; postop changes noted with c/d/i bandaging and drain. Laboratory Results - last 24 hr 02/16/19 02/16/19 06:00 06:00 WBC 4.1 RBC 4.19 Hgb 13.5 Hct 38.2 MCV 91.1 MCH 32.2 MCHC 35.3 RDW 12.7 Plt Count 285 MPV 7.3 L Absolute Neuts (auto) 2.4 Neutrophils % 58.7 D Lymphocytes % 26.1 D Monocytes % 10.4 H Eosinophils % 3.8 Basophils % 1.0 Nucleated RBC % 0 Sodium 136 Potassium 3.6 Chloride 102 Carbon Dioxide 26 Anion Gap 8 BUN 6.3 L Creatinine 0.6 Est GFR (CKD-EPI)AfAm 141.72 Est GFR (CKD-EPI)NonAf 122.28 Random Glucose 104 Calcium 8.2 L Magnesium 2.2 Total Bilirubin 0.9 AST 14 L ALT 22 Alkaline Phosphatase 74 Total Protein 7.1 Albumin 3.0 L Active Medications Generic Name Dose Route Start Last Admin Trade Name Abhijitq PRN Reason Stop Dose Admin Fentanyl 50 mcg 02/16/19 08:55 Sublimaze Injection - IVPUSH [id number] PRN PAIN-PACU ORDER X 4 DOSES ONLY Heparin Sodium (Porcine) 5,000 unit 02/15/19 06:00 02/16/19 05:21 Heparin - SQ Not Given TID TOVA Lactated Ringer's 1,000 mls @ 100 mls/hr 02/15/19 04:15 02/15/19 04:50 Lactated Ringers Solution IV 100 mls/hr ASDIR [facility]OVA Administration Vancomycin HCl 1,000 mg in 250 mls @ 166.667 mls/hr 02/15/19 18:00 02/16/19 05:22 Vancomycin (Pre-Docked) IVPB 166.667 mls/hr BID@0600,1800 T[facility] Administration Protocol Piperacillin Sod/Tazobactam 100 mls @ 200 mls/hr 02/15/19 13:00 02/16/19 01: 50 Sod 4.5 gm/ Dextrose IVPB 200 mls/hr Q8H-IV TOVA Administration Protocol Morphine Sulfate 1 mg 02/15/19 04:09 02/16/19 05:23 Morphine Sulfate IVPUSH 1 mg Q4H PRN Administration PAIN LEVEL 6-10 Ondansetron HCl 4 mg 02/16/19 08:55 Zofran Injection IVPUSH Q6H PRN NAUSEA AND/OR VOMITING Oxycodone HCl 10 mg 02/16/19 08:55 Roxicodone - PO 02/17/19 08:54 Q4H PRN PAIN LEVEL 6-10 Promethazine HCl 12.5 mg 02/16/19 08:55 Phenergan Injection - IVPUSH Q6H PRN NAUSEA-FOR RESCUE AFTER 15 MIN ASSESSMENT/PLAN: Patient seen in followup for perirectal abscess and is POD#0 with surgical drainage; ID continues to follow. Continue with current analgesia, plan for DC in AM as still no urination, etc. s/p spinal anesthesia. Monitor closely, advance diet per surgery. Problems include: -Perirectal abscess (Abx per ID; will discuss final course with their service). -Leukopenia (resolved; 2/2 infection? No further issues with CBC or differential noted. Should followup with PCP and consider OP hematology referral). Full Code Visit type - Emergency Visit Emergency Visit: No - New Patient This patient is new to me today: No - Critical Care Critical Care patient: No
--- NOTE | 2019-02-16 10:47 | OP ---
Operative Note - Note: Operative Date: 02/16/19 Pre-Operative Diagnosis: left perirectal/ischiorectal abscess Operation: incision and drainage of left ischiorectal/perirectal abscess ( complicated) Findings: cruciate incision in left perianal area; tract identified directed deep and anteriorly with some purulent drainage cultured and evacuated, irrigated through drain placed into cavity Post-Operative Diagnosis: Same as Pre-op Surgeon: Mendez Gonzalez Anesthesiologist/TRAFFIC EXPERT: Rufino Sky Anesthesia: Spinal Specimens Removed: culture swab to micro Estimated Blood Loss (mls): 10 Drains & Tubes with Location: 24Fr Malecot catheter into left perirectal abscess cavity; trimmed and sutured to skin Fluid Volume Replaced (mls): 1,000 (crystalloid) Operative Report Dictated: Yes
[2019-02-16] MEDS ORDERED: DOCUSATE SODIUM 100 MG CAPSULE (FP) PO SCH (11:00)
[2019-02-16] MEDS ORDERED: IBUPROFEN 600 MG TABLET (FP) PO SCH (12:00)
[2019-02-16] MEDS: IBUPROFEN 600 MG TABLET (FP) PO SCH ×2 (12:15→17:43)
[2019-02-16] MEDS ORDERED: ONDANSETRON 4 MG/2 ML VIAL ONE (12:49)
--- NOTE | 2019-02-16 13:32 | PN ---
Physical Exam: SUBJECTIVE: Patient seen and examined OBJECTIVE: Vital Signs Period Temp Pulse Resp BP Sys/Rodas Pulse Ox Last 24 Hr 97.5 F-98.6 F 51-69 14-20 97-127/62-77 97-100 GENERAL: The patient is awake, alert, and fully oriented, in no acute distress. HEAD: Normal with no signs of trauma. EYES: PERRL, extraocular movements intact, sclera anicteric, conjunctiva clear. No ptosis. ENT: Ears normal, nares patent, oropharynx clear without exudates, moist mucous membranes. NECK: Trachea midline, full range of motion, supple. LUNGS: Breath sounds equal, clear to auscultation bilaterally, no wheezes, no crackles, no accessory muscle use. HEART: Regular rate and rhythm, S1, S2 without murmur, rub or gallop. ABDOMEN: Soft, nontender, nondistended, normoactive bowel sounds, no guarding, no rebound, no hepatosplenomegaly, no masses. EXTREMITIES: 2+ pulses, warm, well-perfused, no edema. NEUROLOGICAL: Cranial nerves II through XII grossly intact. Normal speech, gait not observed. PSYCH: Normal mood, normal affect. SKIN: Warm, dry, normal turgor, no rashes or lesions noted Laboratory Results - last 24 hr 02/16/19 02/16/19 06:00 06:00 WBC 4.1 RBC 4.19 Hgb 13.5 Hct 38.2 MCV 91.1 MCH 32.2 MCHC 35.3 RDW 12.7 Plt Count 285 MPV 7.3 L Absolute Neuts (auto) 2.4 Neutrophils % 58.7 D Lymphocytes % 26.1 D Monocytes % 10.4 H Eosinophils % 3.8 Basophils % 1.0 Nucleated RBC % 0 Sodium 136 Potassium 3.6 Chloride 102 Carbon Dioxide 26 Anion Gap 8 BUN 6.3 L Creatinine 0.6 Est GFR (CKD-EPI)AfAm 141.72 Est GFR (CKD-EPI)NonAf 122.28 Random Glucose 104 Calcium 8.2 L Magnesium 2.2 Total Bilirubin 0.9 AST 14 L ALT 22 Alkaline Phosphatase 74 Total Protein 7.1 Albumin 3.0 L Active Medications Generic Name Dose Route Start Last Admin Trade Name Freq PRN Reason Stop Dose Admin Acetaminophen 1,000 mg 02/16/19 15:00 Tylenol - PO Q6H TOVA Docusate Sodium 100 mg 02/16/19 22:00 Colace - PO BID [facility] Vancomycin HCl 1,000 mg in 250 mls @ 166.667 mls/hr 02/16/19 18:00 Vancomycin (Pre-Docked) IVPB BID@0600,1800 [facility] Protocol Piperacillin Sod/Tazobactam 100 mls @ 200 mls/hr 02/16/19 11:15 Sod 4.5 gm/ Dextrose IVPB Q8H-IV [facility] Protocol Ibuprofen 600 mg 02/16/19 12:00 02/16/19 12:15 Motrin - PO 600 mg Q6H [facility] Administration Oxycodone HCl 5 mg 02/16/19 11:07 Roxicodone - PO 02/17/19 08:54 Q6H PRN Pain Level 7 - 10 BREAKTHROUGH ASSESSMENT/PLAN:
[2019-02-16] MEDS ORDERED: ACETAMINOPHEN 500 MG TABLET (FP) PO SCH (15:00)
[2019-02-16] MEDS: ACETAMINOPHEN 500 MG TABLET (FP) PO SCH ×2 (15:15→21:23)
[2019-02-16] MEDS: oxyCODONE HCL 5 MG TABLET PO PRN (19:39)
[2019-02-16] MEDS: DOCUSATE SODIUM 100 MG CAPSULE (FP) PO SCH (21:23)
[2019-02-17] MEDS: IBUPROFEN 600 MG TABLET (FP) PO SCH ×5 (01:00→18:11)
[2019-02-17] MEDS ORDERED: DEXTROSE 5%-WATER 100 ML IVPB ONE ×3 (01:15→16:48)
[2019-02-17] MEDS ORDERED: PIPERACILLIN/TAZOBACTAM 4.5 GM VIAL IVPB ONE ×3 (01:15→16:48)
[2019-02-17] MEDS: PIPERACILLIN/TAZOB 4.5 GM 4.5 GM in DEXTROSE 5%-WATER 100 ML IVPB SCH ×4 (01:17→17:28)
[2019-02-17] MEDS: ACETAMINOPHEN 500 MG TABLET (FP) PO SCH ×4 (04:23→20:56)
[2019-02-17] MEDS: VANCOMYCIN 1 GRAM (PRE-DOCKED) 1,000 MG/250 ML BAG IVPB SCH ×2 (05:07→18:16)
[2019-02-17 07:49] LABS: BASO % 0.8 % (0-2.0); EOS % 3.2 % (0-4.5); HEMATOCRIT 37.1 % (35.4-49); LYMPH % 21.6 % (8-40); MCHC 35.2 g/dl (32.0-35.9); MEAN CELL VOLUME 91.1 fl (80-96); MEAN PLT VOLUME 7.5 fl (7.5-11.1); MONO % 10.7 % (3.8-10.2); NEUT % 63.7 % (42.8-82.8); PLATELET COUNT 281 K/MM3 (134-434); RBC 4.07 M/mm3 (4.00-5.60); RDW 12.2 % (11.9-15.9); WHITE BLOOD COUNT 5.1 K/mm3 (4.0-10.0)
[2019-02-17] MEDS: oxyCODONE HCL 5 MG TABLET PO PRN (08:55)
[2019-02-17] MEDS: DOCUSATE SODIUM 100 MG CAPSULE (FP) PO SCH ×2 (09:18→21:00)
[2019-02-17] MEDS: LACTATED RINGERS SOLUTION 1,000 ML IV SCH (09:20)
[2019-02-17 09:30] LABS: CALCIUM 8.5 mg/dL (8.5-10.1); CREATININE 0.6 mg/dL (0.55-1.3); POTASSIUM 3.7 mmol/L (3.5-5.1)
[2019-02-17 10:38] LABS: BLOOD UREA NITROGEN 8.8 mg/dL (7-18)
--- NOTE | 2019-02-17 12:04 | PN ---
Progress Note (short form) - Note Progress Note: s/p incision and draiange in OR yesterday has drain Vital Signs Period Temp Pulse Resp BP Sys/Rodas Pulse Ox Last 24 Hr 97.9 F-98.3 F 55-69 18-22 90-137/58-103 97-100 still with induration of the left buttock, some erythema, tender to touch +drain CBC, BMP 02/17/19 06:28 02/17/19 06:28 Microbiology 02/16/19 10:00 Abscess Gram Stain - Final 02/16/19 10:00 Abscess Wound Culture - Preliminary Gram Negative Usman imp/reccd Left perirectal abscess-drain in place continue vanco/zosyn f/u culture check vanco trough Problem List - Problems (1) Perianal abscess Code(s): K61.0 - ANAL ABSCESS
--- NOTE | 2019-02-17 14:48 | PN ---
Progress Note, Physician History of Present Illness: s/p I&D with drain placement for left perirectal/ischiorectal abscess seen and examined in bed doing better pain less today, tylenol and ibuprofen with oxycodone breakthrough + bowel function tolerating diet camp tender but less left buttock tip - Current Medication List Current Medications: Active Medications Acetaminophen (Tylenol -) 1,000 mg PO Q6H [facility] Last Admin: 02/17/19 09:16 Dose: 1,000 mg Docusate Sodium (Colace -) 100 mg PO BID TOVA Last Admin: 02/17/19 09:18 Dose: 100 mg Vancomycin HCl (Vancomycin (Pre-Docked)) 1,000 mg in 250 mls @ 166.667 mls/hr IVPB BID@0600,1800 [facility]; Protocol Last Admin: 02/17/19 05:07 Dose: 166.667 mls/hr Piperacillin Sod/Tazobactam (Sod 4.5 gm/ Dextrose) 100 mls @ 200 mls/hr IVPB Q8H-IV [facility]; Protocol Last Admin: 02/17/19 09:19 Dose: 200 mls/hr Ibuprofen (Motrin -) 600 mg PO Q6H [facility] Last Admin: 02/17/19 12:55 Dose: 600 mg - Objective Vital Signs: Vital Signs Temperature 98.8 F 02/17/19 13:42 Pulse Rate 59 L 02/17/19 13:42 Respiratory Rate 20 02/17/19 13:42 Blood Pressure 138/63 02/17/19 13:42 O2 Sat by Pulse Oximetry (%) 98 02/17/19 09:00 Constitutional: Yes: Well Nourished, No Distress, Calm Eyes: Yes: Conjunctiva Clear, EOM Intact HENT: Yes: Atraumatic, Normocephalic ...Rectal Exam: Yes: Other (drain in place, some serosang drainage on dressing - removed absorbent pad and hospital underwear replaced for dressing; left gluteal tip with induration but less tender and slightly softer, less erythema) Extremities: No: Cool, Cyanosis Integumentary: No: Jaundice, Rash Wound/Incision: Yes: Dressing Removed, Draining (left perianal drain in place - serosang drainage on dressings). No: Dressing Dry and Intact (dressing removed) Neurological: Yes: Alert, Oriented Labs: CBC, BMP 02/17/19 06:28 02/17/19 06:28 Problem List - Problems (1) Ischiorectal abscess Assessment/Plan: POD1 s/p incision and drainage of left perirectal abscess Malecot drain in place some drainage, no bleeding pain/tenderness improving tolerating diet + bowel function mostly nonnarcotic pain meds, oxy ok for breakthrough culture with E. coli, sens pending continue antibiotics per ID keep pad in underwear cleanse area after each BM ok to shower if able after BMs Code(s): K61.39 - OTHER ISCHIORECTAL ABSCESS (2) Cellulitis of buttock, left Assessment/Plan: improving Code(s): L03.317 - CELLULITIS OF BUTTOCK (3) Left buttock pain Assessment/Plan: improved Code(s): M79.18 - MYALGIA, OTHER SITE (4) Failure of outpatient treatment Code(s): Z78.9 - OTHER SPECIFIED HEALTH STATUS
--- NOTE | 2019-02-17 15:22 | PN ---
Progress Note (short form) - Note Progress Note: 43M POD1 s/p I and D rectal abscess under spinal anesthetic. Pt states pain is well controlled and reports no anesthetic complications. AVSS. Continue current regimen.
--- NOTE | 2019-02-17 16:21 | PN ---
Physical Exam: SUBJECTIVE: Patient seen and examined; no new complaints. He is hemodynamically stable and afebrile. POD1. Abx per ID. Discussed with Dr. Gonzalez and ID Still inflammed. Still on broad spectrum likely benefitting from additional time. Will verify with Dr. Joiner. 10 sys ROS done and negtative aside from HPI OBJECTIVE: Vital Signs Period Temp Pulse Resp BP Sys/Rodas Pulse Ox Last 24 Hr 97.9 F-98.8 F 55-66 18-22 90-138/58-103 98-98 GENERAL: The patient is awake, alert, and fully oriented, in no acute distress. HEAD: Normal with no signs of trauma. EYES: PERRL, extraocular movements intact, sclera anicteric, conjunctiva clear. No ptosis. ENT: Ears normal, nares patent, oropharynx clear without exudates, moist mucous membranes. NECK: Trachea midline, full range of motion, supple. LUNGS: Breath sounds equal, clear to auscultation bilaterally, no wheezes, no crackles, no accessory muscle use. HEART: Regular rate and rhythm, S1, S2 without murmur, rub or gallop. ABDOMEN: Soft, nontender, nondistended, normoactive bowel sounds EXTREMITIES: 2+ pulses, warm, well-perfused, no edema. NEUROLOGICAL: Cranial nerves II through XII grossly intact. Normal speech, gait not observed. PSYCH: Normal mood, normal affect. SKIN: Warm, dry, normal turgor, no rashes or lesions noted. Postoperative perirectal changes noted with some residual tenderness but sti Laboratory Results - last 24 hr 02/17/19 02/17/19 06:28 06:28 WBC 5.1 RBC 4.07 Hgb 13.0 Hct 37.1 MCV 91.1 MCH 32.0 MCHC 35.2 RDW 12.2 Plt Count 281 MPV 7.5 Absolute Neuts (auto) 3.3 Neutrophils % 63.7 Lymphocytes % 21.6 Monocytes % 10.7 H Eosinophils % 3.2 Basophils % 0.8 Nucleated RBC % 0 Sodium 138 Potassium 3.7 Chloride 102 Carbon Dioxide 28 Anion Gap 8 BUN 8.8 Creatinine 0.6 Est GFR (CKD-EPI)AfAm 141.72 Est GFR (CKD-EPI)NonAf 122.28 Random Glucose 115 H Calcium 8.5 Active Medications Generic Name Dose Route Start Last Admin Trade Name Freq PRN Reason Stop Dose Admin Acetaminophen 1,000 mg 02/16/19 15:00 02/17/19 15:40 Tylenol - PO 1,000 mg Q6H [facility] Administration Docusate Sodium 100 mg 02/16/19 22:00 02/17/19 09:18 Colace - PO 100 mg BID [facility] Administration Vancomycin HCl 1,000 mg in 250 mls @ 166.667 mls/hr 02/16/19 18:00 02/17/19 05:07 Vancomycin (Pre-Docked) IVPB 166.667 mls/hr BID@0600,1800 [facility] Administration Protocol Piperacillin Sod/Tazobactam 100 mls @ 200 mls/hr 02/16/19 11:15 02/17/19 09: 19 Sod 4.5 gm/ Dextrose IVPB 200 mls/hr Q8H-IV [facility] Administration Protocol Ibuprofen 600 mg 02/16/19 12:00 02/17/19 12:55 Motrin - PO 600 mg Q6H T[facility] Administration ASSESSMENT/PLAN: He is POD#1 s/p I and D of perirectal abscess on broad spectrum abx per ID with gen sgy and ID following. He is hemodynamically stable and afebrile. Continued inflammation at post operative site so will continue IV abx and monitor. His problems include: -Perirectal abscess (Abx per ID; will discuss final course with their service. POD1 doing well). -Leukopenia (resolved; 2/2 infection? No further issues with CBC or differential noted. Should followup with PCP and consider OP hematology referral). Full Code Visit type - Emergency Visit Emergency Visit: No - New Patient This patient is new to me today: No - Critical Care Critical Care patient: No
[2019-02-17] MEDS ORDERED: oxyCODONE HCL 5 MG TABLET PO PRN (16:41)
[2019-02-18] MEDS: IBUPROFEN 600 MG TABLET (FP) PO SCH ×3 (00:24→14:04)
[2019-02-18] MEDS ORDERED: PIPERACILLIN/TAZOBACTAM 4.5 GM VIAL IVPB ONE ×2 (02:18→10:13)
[2019-02-18] MEDS ORDERED: DEXTROSE 5%-WATER 100 ML IVPB ONE ×2 (02:18→10:13)
[2019-02-18] MEDS: PIPERACILLIN/TAZOB 4.5 GM 4.5 GM in DEXTROSE 5%-WATER 100 ML IVPB SCH ×2 (02:23→10:15)
[2019-02-18] MEDS: ACETAMINOPHEN 500 MG TABLET (FP) PO SCH ×3 (02:24→15:31)
[2019-02-18] MEDS: VANCOMYCIN 1 GRAM (PRE-DOCKED) 1,000 MG/250 ML BAG IVPB SCH (05:07)
[2019-02-18] MEDS: DOCUSATE SODIUM 100 MG CAPSULE (FP) PO SCH (10:15)
--- NOTE | 2019-02-18 10:24 | PN ---
Teaching Attending Note Name of Resident: Rufino Castañeda ATTENDING PHYSICIAN STATEMENT I saw and evaluated the patient. I reviewed the resident's note and discussed the case with the resident. I agree with the resident's findings and plan as documented. Seen and examined; pain improved. DC planning with sgy and ID. Growing Ecoli from wound. 10 sys ROS done and negative from HPI VS, labs, imaging reviewed NAD, AAO, resting in bed RRR s1/2 NC AT EOMI PERRLA NT ND +BS CN2-12 wnl, no fnd Minimal drainage with improved tenderness and redness Micro discussed; sn noted ASSESSMENT AND PLAN: Patient presented for perirectal abscess; is POD #2. Changing to PO abx and DC planning. Rest of plan per resident note.
--- NOTE | 2019-02-18 13:02 | PN ---
Progress Note, Physician History of Present Illness: s/p I&D with drain placement for left perirectal/ischiorectal abscess seen and examined in bed doing better pain better today, used oxycodone yesterday but ok so far today on tylenol and ibuprofen + bowel function tolerating diet pain/tenderness is less small drainage on pads - Current Medication List Current Medications: Active Medications Acetaminophen (Tylenol -) 1,000 mg PO Q6H TOVA Last Admin: 02/18/19 10:15 Dose: 1,000 mg Docusate Sodium (Colace -) 100 mg PO BID TOVA Last Admin: 02/18/19 10:15 Dose: 100 mg Vancomycin HCl (Vancomycin (Pre-Docked)) 1,000 mg in 250 mls @ 166.667 mls/hr IVPB BID@0600,1800 TOVA; Protocol Last Admin: 02/18/19 05:07 Dose: 166.667 mls/hr Piperacillin Sod/Tazobactam (Sod 4.5 gm/ Dextrose) 100 mls @ 200 mls/hr IVPB Q8H-IV TOVA; Protocol Last Admin: 02/18/19 10:15 Dose: 200 mls/hr Ibuprofen (Motrin -) 600 mg PO Q6H TOVA Last Admin: 02/18/19 05:06 Dose: 600 mg Oxycodone HCl (Roxicodone -) 5 mg PO Q6H PRN PRN Reason: Pain Level 7 - 10 BREAKTHROUGH Last Admin: 02/17/19 17:27 Dose: 5 mg - Objective Vital Signs: Vital Signs Temperature 98 F 02/18/19 10:00 Pulse Rate 53 L 02/18/19 10:00 Respiratory Rate 20 02/18/19 10:00 Blood Pressure 112/75 02/18/19 10:00 O2 Sat by Pulse Oximetry (%) 98 02/18/19 09:00 Constitutional: Yes: Well Nourished, No Distress, Calm Eyes: Yes: Conjunctiva Clear, EOM Intact HENT: Yes: Atraumatic, Normocephalic Gastrointestinal: Yes: Soft. No: Tenderness ...Rectal Exam: Yes: Other (drain in place, pad with minimal brown drainage, left gluteal tip with less tenderness, softer though still mildly indurated) Extremities: No: Cool, Cyanosis Integumentary: No: Jaundice, Rash Wound/Incision: Yes: Open to air (with pad in underwear), Draining (minimal) Neurological: Yes: Alert, Oriented Labs: no new labs Microbiology 02/16/19 10:00 Gram Stain - Final Abscess Wound Culture - Final Escherichia Coli resistant to amp, unasyn, bactrim Problem List - Problems (1) Ischiorectal abscess Assessment/Plan: POD2 s/p incision and drainage of left perirectal abscess Malecot drain in place minimal drainage pain/tenderness improving tolerating diet + bowel function mostly nonnarcotic pain meds culture with E. coli as noted antibiotics to complete as per ID ok for d/c home - instructions in d/c plan f/u next week for drain removal may need small # of percocet prn Rx for home, but encouraged to use alternating tylenol and ibuprofen as able Code(s): K61.39 - OTHER ISCHIORECTAL ABSCESS (2) Cellulitis of buttock, left Assessment/Plan: improved Code(s): L03.317 - CELLULITIS OF BUTTOCK (3) Left buttock pain Assessment/Plan: much improved Code(s): M79.18 - MYALGIA, OTHER SITE (4) Failure of outpatient treatment Assessment/Plan: not to take any more of Bactrim or Keflex from before antibiotics per ID on discharge Code(s): Z78.9 - OTHER SPECIFIED HEALTH STATUS
--- NOTE | 2019-02-18 13:58 | PN ---
Progress Note (short form) - Note Progress Note: s/p incision and draiange in OR pod #2 has drain feels much better Vital Signs Period Temp Pulse Resp BP Sys/Rodas Pulse Ox Last 24 Hr 98 F-98.7 F 53-64 20-20 112-136/72-81 98-98 cor-rrr lungs clear abd soft,nt much less tender and indurated, minimal pain +drain CBC, BMP 02/17/19 06:28 02/17/19 06:28 Microbiology 02/16/19 10:00 Abscess Gram Stain - Final 02/16/19 10:00 Abscess Wound Culture - Final Escherichia Coli imp/reccd Left perirectal abscess-drain in place can change to po levaquin 500 daily and flagyl 500 tid or keflex 500 tid with flagyl 500 tid- whichever patient can afford treat one week thanks Problem List - Problems (1) Perianal abscess Code(s): K61.0 - ANAL ABSCESS
[2019-02-18 14:34] VITALS: BP 99/61; PULSE 67; TEMP 98.6
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
== END 2019-02-18 17:05 | disposition home or self-care (01) | DRG 223 ==
LOC: JERFT 19:24 → JERBED 02-15 01:37 → J7W 02-15 06:50
PROVIDERS: ADMIT Internal Medicine; ATTEND Internal Medicine
PROC: 0D9P00Z Drainage of Rectum with Drainage Device, Open Approach (ICD-10-PCS; principal; 2019-02-16 09:00)
DX: K61.1 Rectal abscess (principal); L03.317 Cellulitis of buttock; D72.819 Decreased white blood cell count, unspecified; B96.20 Unspecified Escherichia coli [E. coli] as the cause of diseases classified elsewhere
CPT/HCPCS: 36415; 72193-TC; 80048; 80053; 83036; 83735; 85025; 85027; 85610; 85651; 85730; 86140; 86850; 86900; 86901; 87070; 87186; 87205; 93005; 93010; 94760; 99284-25; G0480; J1644; J7030

== ENCOUNTER 2019-04-21 16:31 | Inpatient (IN) | payer OTHER ==
--- NOTE | 2019-04-21 16:37 | PDOC ---
Rapid Medical Evaluation Time Seen by Provider: 04/21/19 16:36 Medical Evaluation: Allergies Allergy/AdvReac Type Severity Reaction Status Date / Time No Known Allergies Allergy Verified 02/27/19 14:58 04/21/19 16:41 I have performed a brief in-person evaluation of this patient. The patient presents with a chief complaint of: drainage from rectal abscess, see prior visits Pertinent physical exam findings:stable and in NAD, non-focal I have ordered the following:labs The patient will proceed to the ED for further evaluation.
[2019-04-21 16:48] VITALS: BMI 30.2
[2019-04-21 17:37] LABS: BASO % 0.7 % (0-2.0); EOS % 3.8 % (0-4.5); HEMATOCRIT 41.8 % (35.4-49); HEMOGLOBIN 14.5 GM/dL (11.7-16.9); LYMPH % 24.7 % (8-40); MCH 31.5 pg (25.7-33.7); MCHC 34.6 g/dl (32.0-35.9); MEAN CELL VOLUME 90.8 fl (80-96); MEAN PLT VOLUME 7.6 fl (7.5-11.1); MONO % 13.3 % (3.8-10.2); NEUT % 57.5 % (42.8-82.8); PLATELET COUNT 272 K/MM3 (134-434); RDW 13.8 % (11.9-15.9); WHITE BLOOD COUNT 6.5 K/mm3 (4.0-10.0)
[2019-04-21 17:51] LABS: ALBUMIN 3.6 g/dl (3.4-5.0); BILIRUBIN,TOTAL 0.4 mg/dL (0.2-1); BLOOD UREA NITROGEN 14.1 mg/dL (7-18); CALCIUM 8.4 mg/dL (8.5-10.1); CREATININE 0.8 mg/dL (0.55-1.3); POTASSIUM 3.8 mmol/L (3.5-5.1); TOT PROT 8.2 g/dl (6.4-8.2)
[2019-04-21] MEDS ORDERED: VANCOMYCIN 1,000 MG in DEXTROSE 5%-WATER - 250 ML IVPB ONE (17:53)
[2019-04-21] MEDS ORDERED: PIPERACILLIN/TAZOB 3.375 GM 3.375 GM in DEXTROSE 5%-WATER - 50 ML IVPB SCH (18:00)
--- NOTE | 2019-04-21 18:50 | PDOC ---
History of Present Illness - General Chief Complaint: Wound Stated Complaint: PAIN Time Seen by Provider: 04/21/19 16:36 History Source: Patient Exam Limitations: No Limitations - History of Present Illness Initial Comments: 04/21/19 18:45 43-year-old male presents to ED with a bump to his left scrotal region along with a draining wound to his left buttock over the past 5 days. Patient states had an abscess drained by Dr. Gonzalez and states has some discomfort to area and now with drainage since yesterday. Patient denies fever, chills, difficulty moving his bowels, or difficulty urinating. Patient denies history of diabetes and immunosuppression including HIV. Patient states went to the clinic and was told to go to the nearest ER for further evaluation or to see the surgeon if possible. Timing/Duration: getting worse Severity: mild, moderate Associated Symptoms: reports: other Past History - Travel Traveled outside of the country in the last 30 days: No Close contact w/someone who was outside of country & ill: No - Past Medical History Allergies/Adverse Reactions: Allergies Allergy/AdvReac Type Severity Reaction Status Date / Time No Known Allergies Allergy Verified 04/21/19 16:48 Home Medications: Ambulatory Orders Amoxicillin/Potassium Clav [Augmentin 875-125 Tablet] 1 each PO BID #14 tablet 04/23/19 Anemia: No Asthma: No Cancer: No Cardiac Disorders: No CVA: No COPD: No CHF: No Dementia: No Diabetes: No GI Disorders: No Disorders: No HTN: No Hypercholesterolemia: No Liver Disease: No Seizures: No Thyroid Disease: No - Surgical History Abdominal Surgery: No Appendectomy: No Cardiac Surgery: No Cholecystectomy: No Lung Surgery: No Neurologic Surgery: No Orthopedic Surgery: No - Psycho Social/Smoking Cessation Hx Smoking History: Never smoked Have you smoked in the past 12 months: No Information on smoking cessation initiated: No Hx Alcohol Use: No Drug/Substance Use Hx: No Substance Use Type: None Hx Substance Use Treatment: No Patient Lives Alone: No Lives with/in: spouse/SO Review of Systems - Review of Systems Able to Perform ROS?: Yes Constitutional: No: Symptoms Reported Respiratory: No: Symptoms reported ABD/GI: No: Symptoms Reported Musculoskeletal: No: Symptoms Reported Integumentary: Yes: Lumps Neurological: No: Symptoms reported Endocrine: No: Symptoms Reported Hematologic/Lymphatic: No: Symptoms Reported *Physical Exam - Vital Signs Last Vital Signs Temp Pulse Resp BP Pulse Ox 97.7 F 75 16 179/79 H 100 04/21/19 16:35 04/21/19 16:35 04/21/19 16:35 04/21/19 16:35 04/21/19 16:35 - Physical Exam General Appearance: Yes: Nourished, Appropriately Dressed. No: Apparent Distress Neck: positive: Supple Respiratory/Chest: positive: Lungs Clear, Normal Breath Sounds. negative: Respiratory Distress, Accessory Muscle Use Cardiovascular: positive: Regular Rhythm, Regular Rate. negative: Murmur Gastrointestinal/Abdominal: positive: Soft. negative: Tenderness Male Genitalia: positive: other (Palpable 1-1/2 semi-firm mass to left scrotal sac no increased warmth skin discoloration, or drainage. Also noted a semi- firm area to the left buttock draining purulent fluid distal of incision. No involvement of the rectum. noted erythema and mild increased warmth to area) Extremity: positive: Normal Inspection Integumentary: positive: Other Neurologic: positive: Motor Strength 5/5 (Ambulatory) ED Treatment Course - LABORATORY CBC & Chemistry Diagram: 04/21/19 16:59 04/21/19 16:59 - ADDITIONAL ORDERS Additional order review: Laboratory Results 04/21/19 16:59 Sodium 136 Potassium 3.8 Chloride 104 Carbon Dioxide 27 Anion Gap 4 L BUN 14.1 Creatinine 0.8 Est GFR (CKD-EPI)AfAm 125.92 Est GFR (CKD-EPI)NonAf 108.65 Random Glucose 106 Calcium 8.4 L Total Bilirubin 0.4 AST 17 ALT 24 Alkaline Phosphatase 101 Total Protein 8.2 Albumin 3.6 04/21/19 16:59 RBC 4.60 MCV 90.8 MCHC 34.6 RDW 13.8 D MPV 7.6 Neutrophils % 57.5 Lymphocytes % 24.7 Monocytes % 13.3 H Eosinophils % 3.8 Basophils % 0.7 - RADIOLOGY Radiology Studies Ordered: Category Date Time Status PELVIS CT WITH CONTRAST [CT] Stat CT Scan 04/21/19 17:49 Ordered SCROTUM AND CONTENTS US [US] Stat Ultrasound 04/21/19 17:50 Ordered Medical Decision Making - Medical Decision Making 04/21/19 17:48 Chief complaint: Mass to left scrotum along with abscess draining to left buttock. Patient history of perirectal abscess with surgery performed last month by Dr. Gonzalez. Exam: Patient with palpable papule to left scrotum with out active drainage or increased warmth. Noted draining left buttock abscess distal of incision without rectal involvement area erythematous and mildly warm to touch Plan: Wound culture, labs, blood culture scrotal ultrasound including pelvis CT , vanco/zosyn ordered 04/21/19 18:50 Laboratory Tests 04/21/19 04/21/19 16:59 16:59 WBC 6.5 Hgb 14.5 Hct 41.8 Neutrophils % 57.5 Monocytes % 13.3 H Sodium 136 Potassium 3.8 Chloride 104 Carbon Dioxide 27 Anion Gap 4 L BUN 14.1 Creatinine 0.8 Random Glucose 106 Calcium 8.4 L Total Bilirubin 0.4 AST 17 ALT 24 Alkaline Phosphatase 101 Total Protein 8.2 Albumin 3.6 Discharge - Discharge Information Problems reviewed: Yes Clinical Impression/Diagnosis: Perianal abscess Condition: Good Disposition: HOME - Follow up/Referral - Patient Discharge Instructions - Post Discharge Activity
[2019-04-21] MEDS ORDERED: ACETAMINOPHEN 1000 MG/100 ML VIAL (NON FORMULARY) IVPB ONE (19:06)
--- NOTE | 2019-04-21 19:06 | PDOC ---
*Physical Exam - Vital Signs Last Vital Signs Temp Pulse Resp BP Pulse Ox 97.7 F 75 16 179/79 H 100 04/21/19 16:35 04/21/19 16:35 04/21/19 16:35 04/21/19 16:35 04/21/19 16:35 ED Treatment Course - LABORATORY CBC & Chemistry Diagram: 04/21/19 16:59 04/21/19 16:59 - ADDITIONAL ORDERS Additional order review: Laboratory Results 04/21/19 16:59 Sodium 136 Potassium 3.8 Chloride 104 Carbon Dioxide 27 Anion Gap 4 L BUN 14.1 Creatinine 0.8 Est GFR (CKD-EPI)AfAm 125.92 Est GFR (CKD-EPI)NonAf 108.65 Random Glucose 106 Calcium 8.4 L Total Bilirubin 0.4 AST 17 ALT 24 Alkaline Phosphatase 101 Total Protein 8.2 Albumin 3.6 04/21/19 16:59 RBC 4.60 MCV 90.8 MCHC 34.6 RDW 13.8 D MPV 7.6 Neutrophils % 57.5 Lymphocytes % 24.7 Monocytes % 13.3 H Eosinophils % 3.8 Basophils % 0.7 Medical Decision Making - Medical Decision Making 04/21/19 20:[address] Gonzalez. refer patient to Surgeon java integration developer. Dr. Stone. Dr. Gonzalez is away I spoke to Dr. Stone. recommends admission, NPO, antibiotics. OR tomorrow. 04/21/19 20:45 patient pending admission. called Dr. del valle 04/22/19 06:03 Discharge - Discharge Information Problems reviewed: Yes Clinical Impression/Diagnosis: Perianal abscess - Admission Yes - Follow up/Referral - Patient Discharge Instructions - Post Discharge Activity
[2019-04-21] MEDS ORDERED: VANCOMYCIN 1 GRAM (PRE-DOCKED) 1,000 MG/250 ML BAG IVPB ONE (19:26)
[2019-04-21] MEDS ORDERED: ACETAMINOPHEN INJECTION 100 ML IVPB ONE (19:26)
[2019-04-21] MEDS ORDERED: PIPERACILLIN/TAZOB 3.375 GM 3.375 GM/50 ML BAG IVPB ONE (19:27)
--- NOTE | 2019-04-21 23:12 | HP ---
Admitting History and Physical - Primary Care Physician PCP: Zohreh Bui - Admission Chief Complaint: evangelista anal abcess History of Present Illness: 43-year-old male presents to ED with a bump to his left scrotal region along with a draining wound to his left buttock over the past 5 days. Patient states had an abscess drained by Dr. Gonzalez and states has some discomfort to area and now with drainage since yesterday. Patient denies fever, chills, difficulty moving his bowels, or difficulty urinating. Patient denies history of diabetes and immunosuppression including HIV. Patient states went to the clinic and was told to go to the nearest ER for further evaluation or to see the surgeon if possible. - Smoking History Smoking history: Never smoked Have you smoked in the past 12 months: No - Alcohol/Substance Use Hx Alcohol Use: No History of Substance Use: reports: None - Social History ADL: Independent Home Medications - Allergies Allergies/Adverse Reactions: Allergies Allergy/AdvReac Type Severity Reaction Status Date / Time No Known Allergies Allergy Verified 04/21/19 16:48 - Home Medications Home Medications: Ambulatory Orders Amoxicillin/Potassium Clav [Augmentin 875-125 Tablet] 1 each PO BID #14 tablet 04/23/19 Physical Examination Vital Signs: Vital Signs Temperature 97.9 F 04/21/19 21:51 Pulse Rate 64 04/21/19 21:51 Respiratory Rate 18 04/21/19 21:51 Blood Pressure 102/78 04/21/19 21:51 O2 Sat by Pulse Oximetry (%) 99 04/21/19 21:51 Constitutional: Yes: No Distress HENT: Yes: Atraumatic Neck: Yes: Supple Cardiovascular: Yes: Regular Rate and Rhythm Respiratory: Yes: CTA Bilaterally Gastrointestinal: Yes: Normal Bowel Sounds Renal/: Yes: Other (evangelista rectal abcess) Extremities: Yes: WNL Edema: No Neurological: Yes: Alert, Oriented Labs: CBC, BMP 04/21/19 16:59 04/21/19 16:59 Problem List - Problems (1) Perianal abscess Assessment/Plan: iv abx surgery consult pain meds Code(s): K61.0 - ANAL ABSCESS (2) Cellulitis of buttock, left Code(s): L03.317 - CELLULITIS OF BUTTOCK (3) Failure of outpatient treatment Code(s): Z78.9 - OTHER SPECIFIED HEALTH STATUS Assessment/Plan Laboratory Tests 04/21/19 04/21/19 16:59 16:59 WBC 6.5 RBC 4.60 Hgb 14.5 Hct 41.8 MCV 90.8 MCH 31.5 MCHC 34.6 RDW 13.8 D Plt Count 272 MPV 7.6 Absolute Neuts (auto) 3.7 Neutrophils % 57.5 Lymphocytes % 24.7 Monocytes % 13.3 H Eosinophils % 3.8 Basophils % 0.7 Nucleated RBC % 0 Sodium 136 Potassium 3.8 Chloride 104 Carbon Dioxide 27 Anion Gap 4 L BUN 14.1 Creatinine 0.8 Est GFR (CKD-EPI)AfAm 125.92 Est GFR (CKD-EPI)NonAf 108.65 Random Glucose 106 Calcium 8.4 L Total Bilirubin 0.4 AST 17 ALT 24 Alkaline Phosphatase 101 Total Protein 8.2 Albumin 3.6 Active Medications Generic Name Dose Route Start Last Admin Trade Name Freq PRN Reason Stop Dose Admin Piperacillin Sod/Tazobactam 50 mls @ 100 mls/hr 04/21/19 18:00 04/21/19 19:44 Sod 3.375 gm/ Dextrose IVPB 100 mls/hr ONCE TOVA Administration Active Medications Generic Name Dose Route Start Last Admin Trade Name Freq PRN Reason Stop Dose Admin Acetaminophen 650 mg 04/22/19 13:22 Tylenol - PO Q6H PRN FEVER Oxycodone HCl 10 mg 04/22/19 13:22 Roxicodone - PO Q6H PRN PAIN LEVEL 6-10
[2019-04-21] MEDS ORDERED: ACETAMINOPHEN 325 MG TABLET (FP) PO PRN (23:14)
[2019-04-21] MEDS ORDERED: oxyCODONE HCL 5 MG TABLET PO PRN (23:14)
[2019-04-21] MEDS ORDERED: SODIUM CHLORIDE 1,000 ML IV SCH (23:15)
[2019-04-22] MEDS ORDERED: MIDAZOLAM HCL 2 MG/2 ML SINGLE DOSE VIAL ONE ×2 (11:09→11:44)
[2019-04-22] MEDS ORDERED: ACETAMINOPHEN 325 MG TABLET (FP) PO PRN (13:22)
--- NOTE | 2019-04-22 16:12 | CONSULT ---
- Consultation REQUESTING PROVIDER: CONSULT REQUEST: We have been asked to surgically evaluate this patient for Perirectal abscess PCP:Zohreh Bui HISTORY OF PRESENT ILLNESS: 43yo M presented to the ED with complaint of recurrent perirectal pain and drainage. Pt had a perirectal abscess that was drained about [address] Gonzalez. Pt states that the pain has come back and noted drainage from the area. PMHx: denies Home Medications Medication Instructions Recorded NK [No Known Home Medication] 02/27/19 Allergies Allergy/AdvReac Type Severity Reaction Status Date / Time No Known Allergies Allergy Verified 04/21/19 16:48 REVIEW OF SYSTEMS: CONSTITUTIONAL: Absent: fever, chills, diaphoresis, generalized weakness, malaise, loss of appetite, weight change PHYSICAL EXAM: GENERAL: Awake, alert, and fully oriented, in no acute distress. HEAD: Normal with no signs of trauma. EYES: PERRL, sclera anicteric, conjunctiva clear. NECK: Normal ROM LUNGS: breathing comfortably, No accessory muscle use. BACK: 4 x 4cm tender mass on Left buttock with purulent drainage, tender to palpation with erythema. GROIN: Left groin shows tender hard smooth mass inferior to scrotum LOWER EXTREMITIES: No peripheral edema. NEUROLOGICAL: Normal speech, gait not observed. PSYCH: Cooperative. Good eye contact. Appropriate mood and affect. SKIN: Warm, dry, normal turgor, no rashes or lesions noted. Vital Signs Temperature 97.9 F 04/22/19 12:19 Pulse Rate 62 04/22/19 15:45 Respiratory Rate 13 04/22/19 15:45 Blood Pressure 124/81 04/22/19 15:45 O2 Sat by Pulse Oximetry (%) 99 04/22/19 15:45 Lab Results WBC 6.5 K/mm3 (4.0-10.0) 04/21/19 16:59 RBC 4.60 M/mm3 (4.00-5.60) 04/21/19 16:59 Hgb 14.5 GM/dL (11.7-16.9) 04/21/19 16:59 Hct 41.8 % (35.4-49) 04/21/19 16:59 MCV 90.8 fl (80-96) 04/21/19 16:59 MCHC 34.6 g/dl (32.0-35.9) 04/21/19 16:59 RDW 13.8 % (11.9-15.9) D 04/21/19 16:59 Plt Count 272 K/MM3 (134-434) 04/21/19 16:59 Sodium 136 mmol/L (136-145) 04/21/19 16:59 Potassium 3.8 mmol/L (3.5-5.1) 04/21/19 16:59 Chloride 104 mmol/L (98-107) 04/21/19 16:59 Carbon Dioxide 27 mmol/L (21-32) 04/21/19 16:59 Anion Gap 4 MMOL/L (8-16) L 04/21/19 16:59 BUN 14.1 mg/dL (7-18) 04/21/19 16:59 Creatinine 0.8 mg/dL (0.55-1.3) 04/21/19 16:59 Random Glucose 106 mg/dL (74-106) 04/21/19 16:59 Calcium 8.4 mg/dL (8.5-10.1) L 04/21/19 16:59 Problem List - Problems (1) Perianal abscess Assessment/Plan: Plan -will take pt to the OR for I&D, pt most likely has fistula-ano -NPO, IVF Pt seen and discussed with Dr. Stone who agrees with plan Code(s): K61.0 - ANAL ABSCESS
--- NOTE | 2019-04-22 16:30 | OP ---
<Lane Miller - Last Filed: 04/22/19 16:28> Operative Note - Note: Operative Date: 04/22/19 Pre-Operative Diagnosis: Perirectal abscess Operation: Incision and drainage of perirectal abscess Post-Operative Diagnosis: Other (perirectal fistula ano) Estimated Blood Loss (mls): 5 Operative Report Dictated: Yes <Jeremy Stone - Last Filed: 04/23/19 13:39> Operative Note - Note: Operation: Exam under anesthesia; rigid proctosigmoidoscopy Surgeon: Jeremy Stone
--- NOTE | 2019-04-22 16:32 | SURG ---
Surgery Linemarker Note Linemarker: Lane Miller PA-C Date of Service: 04/22/19 Diagnosis: Perirectal abscess Procedure: incision and drainage of perirectal abscess I was present for the entirety of the operative procedure. For further detail, please refer to operative report. Visit type - Case Type Case Type: ED Admission - Emergency Emergency Visit: Yes ED Registration Date: 04/21/19 Care time: The patient presented to the Emergency Department on the above date and was hospitalized for further evaluation of their emergent condition. - New patient This patient is new to me today: No - Critical Care Critical Care patient: No
--- NOTE | 2019-04-22 17:43 | PN ---
Progress Note, Physician - Current Medication List Current Medications: Active Medications Acetaminophen (Tylenol -) 650 mg PO Q6H PRN PRN Reason: FEVER Oxycodone HCl (Roxicodone -) 10 mg PO Q6H PRN PRN Reason: PAIN LEVEL 6-10 - Objective Vital Signs: Vital Signs Temperature 98.0 F 04/22/19 17:15 Pulse Rate 68 04/22/19 17:15 Respiratory Rate 20 04/22/19 17:15 Blood Pressure 126/88 04/22/19 17:15 O2 Sat by Pulse Oximetry (%) 99 04/22/19 17:15 Constitutional: Yes: No Distress HENT: Yes: Atraumatic Neck: Yes: Supple Cardiovascular: Yes: Regular Rate and Rhythm Respiratory: Yes: CTA Bilaterally Gastrointestinal: Yes: Normal Bowel Sounds Extremities: Yes: WNL Neurological: Yes: Alert, Oriented Labs: CBC, BMP 04/21/19 16:59 04/21/19 16:59 Problem List - Problems (1) Perianal abscess Assessment/Plan: iv abx s/p surgery pain meds Code(s): K61.0 - ANAL ABSCESS (2) Cellulitis of buttock, left Code(s): L03.317 - CELLULITIS OF BUTTOCK (3) Failure of outpatient treatment Code(s): Z78.9 - OTHER SPECIFIED HEALTH STATUS
--- NOTE | 2019-04-22 18:23 | CON.ID ---
Consult Consult Specialty:: infectious disease Referred by:: dr del valle Reason for Consultation:: perirectal abscess - History of Present Illness Chief Complaint: left buttock pain History of Present Illness: 43 yo man who was treated 02/15 to 02/18 for perirectal abscess- héctor and discharged home wound grew ecoli now readmitted with pain at the same site no fevers or chills he had a pelvic ct that ocnfirmed the abscess last night he is s/p or drainage of the abscess, ?fistula no other prior surgeries no other PMH - History Source History Provided By: Patient Limitations to Obtaining History: Language Barrier - Past Medical History Additional Medical History: denies - Alcohol/Substance Use Hx Alcohol Use: No History of Substance Use: reports: None - Smoking History Smoking history: Never smoked Have you smoked in the past 12 months: No - Social History Usual Living Arrangement: With Spouse ADL: Independent Place of : Other History of Recent Travel: No Home Medications - Allergies Allergies/Adverse Reactions: Allergies Allergy/AdvReac Type Severity Reaction Status Date / Time No Known Allergies Allergy Verified 04/21/19 16:48 - Home Medications Home Medications: Ambulatory Orders Amoxicillin/Potassium Clav [Augmentin 875-125 Tablet] 1 each PO BID #14 tablet 04/23/19 Family Medical History Family History: Denies Review of Systems - Review of Systems Constitutional: reports: No Symptoms. denies: Chills, Fever Eyes: reports: No Symptoms HENT: reports: No Symptoms Neck: reports: No Symptoms Cardiovascular: reports: No Symptoms Respiratory: reports: No Symptoms Gastrointestinal: reports: No Symptoms Genitourinary: reports: No Symptoms Musculoskeletal: reports: No Symptoms Integumentary: reports: No Symptoms Physical Exam Vital Signs: Vital Signs Temperature 98.0 F 04/22/19 17:15 Pulse Rate 68 04/22/19 17:15 Respiratory Rate 20 04/22/19 17:15 Blood Pressure 126/88 04/22/19 17:15 O2 Sat by Pulse Oximetry (%) 99 04/22/19 17:15 Constitutional: Yes: Well Nourished, No Distress Eyes: Yes: Conjunctiva Clear HENT: Yes: Atraumatic, Normocephalic Neck: Yes: Supple Cardiovascular: Yes: Regular Rate and Rhythm Respiratory: Yes: Regular, CTA Bilaterally Gastrointestinal: Yes: Normal Bowel Sounds, Soft ...Rectal Exam: Yes: Deferred Musculoskeletal: Yes: WNL Extremities: Yes: WNL Edema: No Labs: CBC, BMP 04/21/19 16:59 04/21/19 16:59 abscess culture pending Imaging - Results Cat Scan: Report Reviewed Problem List - Problems (1) Perianal abscess Code(s): K61.0 - ANAL ABSCESS Assessment/Plan resume ceftriaxone and flagyl, f/u cultures in am ?fistula
[2019-04-22] MEDS ORDERED: cefTRIAXone SODIUM 1 GM VIAL ONE (18:25)
[2019-04-22] MEDS ORDERED: DEXTROSE 5%-WATER - 50 ML IVPB ONE (18:25)
[2019-04-22] MEDS: CEFTRIAXONE 1 GM in DEXTROSE 5%-WATER - 50 ML IVPB SCH (18:38)
[2019-04-22] MEDS: oxyCODONE HCL 5 MG TABLET PO PRN (18:47)
[2019-04-22] MEDS ORDERED: FLU VACCINE QUAD 60 MCG/0.5 ML (MDV 19-20) IM ONE (19:23)
[2019-04-23] MEDS: oxyCODONE HCL 5 MG TABLET PO PRN ×2 (05:33→14:58)
--- NOTE | 2019-04-23 09:14 | PN ---
Progress Note (short form) - Note Progress Note: 43M s/p I&D of perirectal abscess under spinal. No new c/o. Vital Signs Temp 98.3 F 04/23/19 01:58 Pulse 67 04/23/19 01:58 Resp 21 H 04/23/19 01:58 BP 118/81 04/23/19 01:58 Pulse Ox 99 04/22/19 17:30 Intake & Output 04/22/19 04/22/19 04/23/19 11:59 23:59 11:59 Intake Total 600 1270 Output Total 650 Balance 600 620 Weight 165 lb Intake: IV 600 800 IVPB 150 Oral 320 Output: Urine 650 Void 650 Other: Voiding Method Toilet Urinal # Unmeasured Voids Void 2 Bowel Movement No Height 5 ft 2 in Body Mass Index (BMI) 30.2 - no anesthesia complications
[2019-04-23] MEDS ORDERED: DEXTROSE 5%-WATER - 50 ML IVPB ONE (10:20)
[2019-04-23] MEDS ORDERED: cefTRIAXone SODIUM 1 GM VIAL ONE (10:20)
[2019-04-23] MEDS: CEFTRIAXONE 1 GM in DEXTROSE 5%-WATER - 50 ML IVPB SCH (10:25)
--- NOTE | 2019-04-23 11:30 | PN ---
Progress Note (short form) - Note Progress Note: Attending Surgeon POD#1 c/o mild pain VSS AF packing removed from the I and D site/fistula site; no drainage; induration improved; o/w negative cueolaen-O-ncrzvgl fermenting hany and Staph IMP: doing well. PLAN: Packing removed and DSD placed; may do Sitz baths BID and can f/u in the office pending decision about antibiotics; he will probably need a fistulotomy down the road. Jeremy Stone MD FACS
--- NOTE | 2019-04-23 12:32 | OP ---
DATE OF OPERATION: 04/22/2019 PREOPERATIVE DIAGNOSIS: Recurrent perirectal, perianal abscess. POSTOPERATIVE DIAGNOSIS: Probable gstcycd-zx-[id number]. PROCEDURE: Examination under anesthesia, rigid proctosigmoidoscopy, incision and drainage of possible perirectal abscess and/or exploration of possible iztbjxg-oc-[id number]. SURGEON: Jeremy Sotne MD BONDED [employer]UCTURES REPAIRER: Lane Naylor PA-C ANESTHESIA: Regional. OPERATIVE FINDINGS: Rigid sigmoidoscopy up to 20 cm was unremarkable. There was most likely a jxggbhc-ma-dif, and the rest of the findings were unremarkable. DESCRIPTION OF PROCEDURE: The patient was placed on the operating room table in the dorsal lithotomy position after the placement of regional anesthesia. A time- out was taken, and digital rectal exam was carried out as well as rigid proctosigmoidoscopy, and the previously noted findings were observed. The area of fluctuance and induration and an opening in the skin was enlarged with a scalpel and taken down through skin and subcutaneous tissue. A small amount of purulent drainage was obtained and sent for culture and sensitivity. Loculations were broken up using blunt dissection and then a probable fokmzka-wk-usq was identified. Because of the marked inflammation, a definite connection of the fistulous tract into the rectum was conservatively approached. Next, the wound was copiously irrigated with sterile saline and hydrogen peroxide and the wound packed with 1-inch iodoform gauze, and dry, sterile dressings were placed and the procedure terminated at this point and the patient transferred to the post anesthesia care unit in stable condition awake and alert. ESTIMATED BLOOD LOSS: 5 mL. REPLACEMENTS: Crystalloid. DRAINS: 1-inch iodoform packing. SPECIMEN: Purulent drainage to Microbiology for culture and sensitivity. I, Jeremy Stnoe, was physically present in the operating room from the time the patient was placed on the operating room table until he was transferred to the post anesthesia care unit in [employer]. MD MARLENE Marlow/[id number] MTDD
--- NOTE | 2019-04-23 13:25 | PN ---
Progress Note (short form) - Note Progress Note: packing removed Vital Signs Period Temp Pulse Resp BP Sys/Rodas Pulse Ox Last 24 Hr 98.0 F-98.3 F 50-73 10-21 103-138/68-90 97-100 cor-rrr lungs clear abd soft,nt incision clean, no drainage, no erythema, minimal induration CBC, BMP 04/21/19 16:59 04/21/19 16:59 Microbiology 04/22/19 12:30 Abscess Gram Stain - Final 04/22/19 12:30 Abscess Wound Culture - Preliminary Group D Strep Or Entero Coccus Lactose Fermenting Neg Bacilli 04/21/19 21:46 Abscess Gram Stain - Final 04/21/19 21:46 Abscess Wound Culture - Preliminary Staphylococcus Latex Coag Pos Lactose Fermenting Neg Bacilli Pending Organism a/p s/p drainage of abscess- spoke with micro- presumptive MSSA with enterococcus and gnr d/c rocephin/flagyl switch to augmentin 875 mg po bid for 7 days dressing changes per surgery f/u with surgery as outpatient Problem List - Problems (1) Perianal abscess Code(s): K61.0 - ANAL ABSCESS
[2019-04-23 14:45] VITALS: BP 124/73; PULSE 77; TEMP 98.5
--- NOTE | 2019-04-23 19:07 | DS ---
Physical Examination Vital Signs: Vital Signs Temperature 98.5 F 04/23/19 14:44 Pulse Rate 77 04/23/19 14:44 Respiratory Rate 17 04/23/19 09:00 Blood Pressure 124/73 04/23/19 14:44 O2 Sat by Pulse Oximetry (%) 99 04/23/19 09:00 Constitutional: Yes: No Distress HENT: Yes: Atraumatic Neck: Yes: Supple Cardiovascular: Yes: Regular Rate and Rhythm Respiratory: Yes: CTA Bilaterally Gastrointestinal: Yes: Normal Bowel Sounds Extremities: Yes: WNL Edema: No Neurological: Yes: Alert, Oriented Labs: CBC, BMP 04/21/19 16:59 04/21/19 16:59 Discharge Summary Problems reviewed: Yes Reason For Visit: PERIANAL ABSCESS, CELLULITIS OF LEFT BUTTOCK Current Active Problems Perianal abscess (Acute) Condition: Good - Instructions Diet, Activity, Other Instructions: Dr. Stone Discharge Instructions Dear NOHEMI CALHOUN, Post Operative Instructions Physical activity Resume your normal everyday activity as tolerated no heavy lifting or exercise until seen by your surgeon. You may walk unlimited amounts of and climb stairs. You may resume driving the car when you feel safe and comfortable behind the wheel and are no longer taking narcotics. Wound care You may shower with regular soap and water or take SITZ bathes-pat dry and apply a clean dry dressing. Do not apply lotion or ointments to incision. You can place clean gauze in the wound just to keep the skin open and allow it to drain. Diet There are no dietary restrictions. Eat healthy, high-fiber foods. Drink 6 to 8 glasses of liquid each day. This will assist in keeping your bowels are regular. Pain management You may take Tylenol or acetaminophen or Ibuprofen (for example, Motrin, Advil etc.) Any pain prescription medication ordered should be taken as prescribed for moderate to severe pain. Call Dr. Stone for any of the following: Severe pain not relieved by medication Fever of 101 or higher Excessive bleeding or drainage on dressing Inability to urinate If you experience any chest pain or shortness of breath please seek emergency treatment immediately. Call the office at [phone] for a post operative appointment in 7 - 10 days. Disposition: HOME - Home Medications Comprehensive Discharge Medication List: Ambulatory Orders Amoxicillin/Potassium Clav [Augmentin 685125 Tablet] 1 each PO BID #14 tablet 04/23/19 dc home fu surgery next week all questions answered and patient understood
== END 2019-04-23 20:17 | disposition home or self-care (01) | DRG 223 ==
LOC: JER 16:31 → JERBED 21:03 → J6S 04-22 17:46
PROVIDERS: ADMIT Internal Medicine; ATTEND Internal Medicine
PROC: 0D9P0ZZ Drainage of Rectum, Open Approach (ICD-10-PCS; 2019-04-22)
PROC: 3E1H78Z Irrigation of Lower GI using Irrigating Substance, Via Natural or Artificial Opening (ICD-10-PCS; 2019-04-22)
PROC: 0DJD8ZZ Inspection of Lower Intestinal Tract, Via Natural or Artificial Opening Endoscopic (ICD-10-PCS; principal; 2019-04-22 10:00)
DX: K61.1 Rectal abscess (principal); K61.0 Anal abscess; L03.317 Cellulitis of buttock; Z78.9 Other specified health status; B95.62 Methicillin resistant Staphylococcus aureus infection as the cause of diseases classified elsewhere; B96.20 Unspecified Escherichia coli [E. coli] as the cause of diseases classified elsewhere; B95.2 Enterococcus as the cause of diseases classified elsewhere
CPT/HCPCS: 36415; 72193-TC; 76882-TC-RT-FY; 80053; 85025; 87070; 87076; 87186; 87205; 94760; 99285-25; G0008; J0131; J7030; Q2036; Q9967

== ENCOUNTER 2019-07-01 09:26 | Emergency (ER) | payer OTHER ==
[2019-07-01 09:43] VITALS: BP 123/80; PULSE 60; TEMP 98.1; BMI 30.2
--- NOTE | 2019-07-01 12:11 | PDOC ---
History of Present Illness - General Chief Complaint: Wound Stated Complaint: LEFT LEG PAIN Time Seen by Provider: 07/01/19 10:23 History Source: Patient Exam Limitations: No Limitations Past History - Travel Traveled outside of the country in the last 30 days: No Close contact w/someone who was outside of country & ill: No - Past Medical History Allergies/Adverse Reactions: Allergies Allergy/AdvReac Type Severity Reaction Status Date / Time No Known Allergies Allergy Verified 07/01/19 09:40 Home Medications: Ambulatory Orders Cephalexin Monohydrate [Keflex -] 500 mg PO BID #14 capsule 07/01/19 Sulfamethoxazole/Trimethoprim [Bactrim Ds -] 1 tab PO BID #14 tablet 07/01/19 Anemia: No Asthma: No Cancer: No Cardiac Disorders: No CVA: No COPD: No CHF: No Dementia: No Diabetes: No GI Disorders: No Disorders: No HTN: No Hypercholesterolemia: No Liver Disease: No Seizures: No Thyroid Disease: No - Surgical History Abdominal Surgery: No Appendectomy: No Cardiac Surgery: No Cholecystectomy: No Lung Surgery: No Neurologic Surgery: No Orthopedic Surgery: No - Psycho Social/Smoking Cessation Hx Smoking History: Never smoked Have you smoked in the past 12 months: No Hx Alcohol Use: No Drug/Substance Use Hx: No Substance Use Type: None Hx Substance Use Treatment: No Review of Systems - Review of Systems Able to Perform ROS?: Yes Comments:: 07/01/19 15:56 CONSTITUTIONAL: Absent: fever, chills, diaphoresis, generalized weakness, malaise, loss of appetite MUSCULOSKELETAL: Absent: myalgia, arthralgia, joint swelling SKIN: Present: abscess Absent: rash, itching, pallor NEUROLOGIC: Absent: headache, focal weakness or paresthesias, dizziness, unsteady gait, seizure, mental status changes, bladder or bowel incontinence PSYCHIATRIC: Absent: anxiety, depression, suicidal or homicidal ideation, hallucinations. Is the patient limited Macanese proficient: No *Physical Exam - Vital Signs Last Vital Signs Temp Pulse Resp BP Pulse Ox 98.1 F 60 16 123/80 99 07/01/19 09:41 07/01/19 09:41 07/01/19 09:41 07/01/19 09:41 07/01/19 09:41 - Physical Exam 07/01/19 15:58 GENERAL: The patient is awake, alert, and fully oriented, in no acute distress. HEAD: Normal with no signs of trauma. EYES: Pupils equal, round and reactive to light, extraocular movements intact, sclera anicteric, conjunctiva clear. EXTREMITIES: Normal range of motion, no edema. NEUROLOGICAL: Normal speech, normal gait. PSYCH: Normal mood, normal affect. SKIN: 2cm round fluctuance to the L buttock. Actively draining with no obvious opening. Warm, Dry, normal turgor, no rashes noted. Procedures - Incision and Drainage I&D Site: Left: Buttock (2cm round and fluctuant) Betadine cleansed: Yes Anesthesia: 1% Lidocaine Volume(ml): 4 Blade Size: 11 Attempts: 1 Iodinated Packin/ in Complications: none Dressing: Yes Medical Decision Making - Medical Decision Making 07/01/19 16:02 The patient is a 43-year-old male with past medical history of abscesses, who presents to the ER today for a painful lesion to his left buttock. He states it feels like his other abscesses and is draining at this time. Denies fevers, chills, nausea, vomiting, rectal pain. A/P: Abscess On exam there is a 2 cm fluctuant abscess to the left buttock cheek. Incision and drainage performed at this time. see procedure note. When exploring the wound for loculations there is tracking proximally. Patient states he does have a history of perianal abscesses, given this tracks will likely need surgical follow-up. Wound culture collected. Patient started on Bactrim and Keflex. discharge home to have the patient return in 2 days for wound check. I discussed the physical exam findings, ancillary test results and final diagnoses with the patient. I answered all of the patient's questions. The patient was satisfied with the care received and felt comfortable with the discharge plan and treatment plan. The Patient agrees to follow up with the [facility] physician/specialist within 24-72 hours. Return precautions were given. Discharge - Discharge Information Problems reviewed: Yes Clinical Impression/Diagnosis: Abscess Condition: Stable Disposition: HOME - Admission No - Additional Discharge Information Prescriptions: Cephalexin Monohydrate [Keflex -] 500 mg PO BID #14 capsule Sulfamethoxazole/Trimethoprim [Bactrim Ds -] 1 tab PO BID #14 tablet - Follow up/Referral Referrals: Jeremy Stone MD [Staff Physician] - - Patient Discharge Instructions Patient Printed Discharge Instructions: DI for Incision and Drainage Additional Instructions: You had your abscess drained today. Please return to the ER in 2 days for a wound check. Please follow-up with surgery. You have seen Dr. Stone before. Please call his office for an appointment. Please take the antibiotics as directed. Return to the ER for fever, difficulty with bowel movements or if you have any changes in your symptoms. Hoy te drenaron el absceso. Por favor, regrese a Urgencias en 2 norman para un control de la herida. Por favor, siga con la ciruga. Bertha antes. Por favor llame a [place] oficina para yara alpesh. Por favor, tome los antibiticos kapil se indica. Regrese a urgencias para la fiebre, dificultad con las deposiciones o si tiene algn cambio en los sntomas. Print Language: MALTESE - Post Discharge Activity Work/Back to School Note: Back to Work
== END 2019-07-01 12:27 | disposition home or self-care (01) ==
LOC: JERFT 09:26
PROC: 0J990ZZ Drainage of Buttock Subcutaneous Tissue and Fascia, Open Approach (ICD-10-PCS; principal; 2019-07-01)
DX: L02.31 Cutaneous abscess of buttock (principal)
CPT/HCPCS: 10160; 87070; 87077; 87205; 99282-25

== ENCOUNTER 2019-07-18 10:46 | Emergency (ER) | payer OTHER ==
[2019-07-18 10:54] VITALS: BP 133/86; PULSE 84; TEMP 97.8; BMI 28.2
--- NOTE | 2019-07-18 11:44 | PDOC ---
History of Present Illness - General Chief Complaint: Abscess Boil Stated Complaint: FEVER Time Seen by Provider: 07/18/19 11:30 History Source: Patient Exam Limitations: Clinical Condition - History of Present Illness Initial Comments: 07/18/19 11:51 Patient with no significant past medical history present with complaint of persistent left gluteal abscess which patient has been following up for 3 weeks now for symptoms. Patient was seen here 3 weeks ago for same complaint and was discharged home on Keflex and Bactrim antibiotic for infection prophylaxis and followed up with general surgeon with patient report called general surgeon and saw a week ago Dr. Stone who advised patient to come back in 2 weeks but patient came in today because he is still having pain to area. Patient reported painful when he sits down to left gluteal area due to abscess. Denies any other symptoms Timing/Duration: reports: constant Past History - Past Medical History Allergies/Adverse Reactions: Allergies Allergy/AdvReac Type Severity Reaction Status Date / Time No Known Allergies Allergy Verified 07/18/19 10:51 Home Medications: Ambulatory Orders Hydrocortisone 2.5% Topical Cr [Anusol-Hc -] 1 applic RC BID #1 tube 07/18/19 Lidocaine 5% Top. Ointment [Xylocaine 5% Top. Ointment -] 1 applic TP TID #1 tube 07/18/19 Anemia: No Asthma: No Cancer: No Cardiac Disorders: No CVA: No COPD: No CHF: No Dementia: No Diabetes: No GI Disorders: No Disorders: No HTN: No Hypercholesterolemia: No Liver Disease: No Seizures: No Thyroid Disease: No - Surgical History Abdominal Surgery: No Appendectomy: No Cardiac Surgery: No Cholecystectomy: No Lung Surgery: No Neurologic Surgery: No Orthopedic Surgery: No - Psycho Social/Smoking Cessation Hx Smoking History: Never smoked Have you smoked in the past 12 months: No Information on smoking cessation initiated: No Hx Alcohol Use: No Drug/Substance Use Hx: No Substance Use Type: None Hx Substance Use Treatment: No Review of Systems - Review of Systems Able to Perform ROS?: Yes Is the patient limited Azeri proficient: No Constitutional: No: Chills, Fever, Malaise HEENTM: No: Symptoms Reported, See HPI, Eye Pain, Blurred Vision, Tearing, Recent change in vision, Double Vision, Cataracts, Ear Pain, Ocular Prothesis, Ear Discharge, Nose Pain, Nose Congestion, Tinnitus, Nose Bleeding, Hearing Loss , Throat Pain, Throat Swelling, Mouth Pain, Dental Problems, Difficulty Swallowing, Mouth Swelling, Other Respiratory: No: Symptoms reported, See HPI, Cough, Orthopnea, Shortness of Breath, SOB with Exertion, SOB at Rest, Stridor, Wheezing, Productive cough, Hemoptysis, Other Cardiac (ROS): No: Symptoms Reported, See HPI, Chest Pain, Edema, Irregular Heart Rate, Lightheadedness, Palpitations, Syncope, Chest Tightness, Other Musculoskeletal: Yes: Symptoms Reported, See HPI, Muscle Pain (left gluteal pain ) Integumentary: Yes: Symptoms Reported, See HPI, Lumps (abscess to left gluteal area) Neurological: No: Symptoms reported All Other Systems: Reviewed and Negative *Physical Exam - Vital Signs Last Vital Signs Temp Pulse Resp BP Pulse Ox 97.8 F 84 18 133/86 98 07/18/19 10:52 07/18/19 10:52 07/18/19 10:52 07/18/19 10:52 07/18/19 10:52 - Physical Exam General Appearance: Yes: Nourished, Appropriately Dressed. No: Apparent Distress HEENT: positive: Normal ENT Inspection Neck: positive: Supple Respiratory/Chest: negative: Respiratory Distress, Accessory Muscle Use Rectal Exam: positive: other (small fascia protrusion through skin of left medial gluteal area. no skin erythema. no drainage from site) Musculoskeletal: positive: Normal Inspection Extremity: positive: Normal Inspection Integumentary: positive: Normal Color Neurologic: positive: Fully Oriented, Alert, Normal Response, Motor Strength 5/5 Medical Decision Making - Medical Decision Making 07/18/19 11:56 Patient with no significant past medical history present with complaint of persistent left gluteal abscess which patient has been following up for 3 weeks now for symptoms. Patient was seen here 3 weeks ago for same complaint and was discharged home on Keflex and Bactrim antibiotic for infection prophylaxis and followed up with general surgeon with patient report called general surgeon and saw a week ago Dr. Stone who advised patient to come back in 2 weeks but patient came in today because he is still having pain to area. Patient reported painful when he sits down to left gluteal area due to abscess. Denies any other symptoms Exam significant for 1 mm area of skin protrusion to medial aspect of left gluteal area with 2 cm area of hard induration to skin. No skin erythema or drainage from site. There is no palpable abscess to gluteal areas patient symptoms more for fascia protrusion through the skin of the left gluteal. Patient stable for discharge on topical hydrocortisone and lidocaine for pain management we will follow-up back with general surgeon Discharge - Discharge Information Problems reviewed: Yes Clinical Impression/Diagnosis: Left buttock pain, Unspecified open wound of anus, subsequent encounter Condition: Stable Disposition: HOME - Admission No - Additional Discharge Information Prescriptions: Hydrocortisone 2.5% Topical Cr [Anusol-Hc -] 1 applic RC BID #1 tube Lidocaine 5% Top. Ointment [Xylocaine 5% Top. Ointment -] 1 applic TP TID #1 tube - Follow up/Referral Referrals: Jeremy Stone MD [Staff Physician] - - Patient Discharge Instructions Patient Printed Discharge Instructions: DI for Anal Abscess Additional Instructions: Use prescribed topical cream to help with pain. Call back general surgery Dr. Stone office to make immediate follow-up appointment - Post Discharge Activity
== END 2019-07-18 11:46 | disposition home or self-care (01) ==
LOC: JERFT 10:46
DX: L02.31 Cutaneous abscess of buttock (principal); M79.18 Myalgia, other site
CPT/HCPCS: 99283-25

== ENCOUNTER 2019-07-21 10:17 | Emergency (ER) | payer OTHER ==
[2019-07-21 10:42] VITALS: BP 120/69; PULSE 72; TEMP 98; BMI 33.2
--- NOTE | 2019-07-21 11:53 | PDOC ---
History of Present Illness - General Chief Complaint: Pain, Acute Stated Complaint: WOUND CARE Time Seen by Provider: 07/21/19 11:37 - History of Present Illness Initial Comments: 07/21/19 11:50 43-year-old male without comorbidities presents for evaluation of a painful area on his left buttocks for the last 3 weeks. No systemic symptoms. Past History - Past Medical History Allergies/Adverse Reactions: Allergies Allergy/AdvReac Type Severity Reaction Status Date / Time No Known Allergies Allergy Verified 07/18/19 10:51 Home Medications: Ambulatory Orders Hydrocortisone 2.5% Topical Cr [Anusol-Hc -] 1 applic RC BID #1 tube 07/18/19 Lidocaine 5% Top. Ointment [Xylocaine 5% Top. Ointment -] 1 applic TP TID #1 tube 07/18/19 Cephalexin [Keflex] 500 mg PO QID #40 capsule 07/21/19 Sulfamethoxazole/Trimethoprim [Bactrim Ds -] 1 tab PO BID #14 tablet 07/21/19 Anemia: No Asthma: No Cancer: No Cardiac Disorders: No CVA: No COPD: No CHF: No Dementia: No Diabetes: No GI Disorders: No Disorders: No HTN: No Hypercholesterolemia: No Liver Disease: No Seizures: No Thyroid Disease: No - Surgical History Abdominal Surgery: No Appendectomy: No Cardiac Surgery: No Cholecystectomy: No Lung Surgery: No Neurologic Surgery: No Orthopedic Surgery: No - Immunization History Immunization Up to Date: No - Psycho Social/Smoking Cessation Hx Smoking History: Never smoked Have you smoked in the past 12 months: No Information on smoking cessation initiated: No Hx Alcohol Use: Yes Drug/Substance Use Hx: No Substance Use Type: None Hx Substance Use Treatment: No Review of Systems - Review of Systems Constitutional: No: Fever Integumentary: Yes: See HPI *Physical Exam - Vital Signs Last Vital Signs Temp Pulse Resp BP Pulse Ox 98.0 F 72 16 120/69 98 07/21/19 10:39 07/21/19 10:39 07/21/19 10:39 07/21/19 10:39 07/21/19 10:39 - Physical Exam 07/21/19 11:50 There is a mildly warm indurated area with an umbilicated center without drainage. The area is tender there are no areas of fluctuance. The area is on the inferior aspect of the left medial buttocks. Medical Decision Making - Medical Decision Making 07/21/19 11:51 This area may represent a forming abscess. I will refer this patient to general surgery. This patient has a history of these abscesses and is under the care of a general surgeon. I will refer him back to the same surgeon. Discharge - Discharge Information Problems reviewed: Yes Clinical Impression/Diagnosis: Cellulitis of buttock, left, Left buttock pain Condition: Stable Disposition: HOME - Admission No - Additional Discharge Information Prescriptions: Cephalexin [Keflex] 500 mg PO QID #40 capsule Sulfamethoxazole/Trimethoprim [Bactrim Ds -] 1 tab PO BID #14 tablet - Follow up/Referral Referrals: Mendez Gonzalez MD [Staff Physician] - - Patient Discharge Instructions Additional Instructions: Return to the emergency room for worsening symptoms. Please start the antibiotics and take them as directed. Tylenol and Motrin as directed for pain. Without fail follow-up with general surgery in 1 to 2 days for further evaluation and treatment options. - Post Discharge Activity
== END 2019-07-21 11:57 | disposition home or self-care (01) ==
LOC: JERFT 10:17
DX: L03.317 Cellulitis of buttock (principal)
CPT/HCPCS: 99283-25

== ENCOUNTER 2019-11-20 11:04 | Day surgery (SDC) | payer OTHER ==
[2019-11-20 11:28] VITALS: BMI 26.4
[2019-11-20] MEDS ORDERED: MIDAZOLAM HCL 2 MG/2 ML SINGLE DOSE VIAL ONE ×2 (12:23→13:23)
[2019-11-20] MEDS ORDERED: PROPOFOL 20 ML ONE ×3 (12:23→13:25)
[2019-11-20] MEDS ORDERED: fentaNYL CITRATE 250 MCG/5 ML VIAL ONE (13:23)
[2019-11-20] MEDS ORDERED: ceFAZolin SODIUM 1 GM VIAL IVPB ONE (13:50)
[2019-11-20] MEDS ORDERED: ceFAZolin SODIUM 1 GM VIAL ONE (13:55)
[2019-11-20] MEDS ORDERED: ONDANSETRON 4 MG/2 ML VIAL IVPUSH PRN (14:12)
[2019-11-20] MEDS ORDERED: LACTATED RINGERS SOLUTION 1,000 ML IV SCH (14:15)
[2019-11-20] MEDS ORDERED: BACITRACIN 15 GM TUBE TOPICAL OINTMENT ONE (14:49)
--- NOTE | 2019-11-20 15:16 | OP ---
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 Surgeon: Jeremy Stone Anesthesiologist/PILATES INSTRUCTOR: Aminah Awan Anesthesia: Spinal Estimated Blood Loss (mls): 10
[2019-11-20 19:07] VITALS: BP 120/78; PULSE 74; TEMP 98.2
--- NOTE | 2019-12-03 11:32 | OP ---
DATE OF OPERATION: 11/20/2019 PREOPERATIVE DIAGNOSIS: Fistula in ano. POSTOPERATIVE DIAGNOSIS: Fistula in ano. PROCEDURE: Examination under anesthesia, rigid proctosigmoidoscopy, fistulectomy and fistulotomy and placement of seton. SURGEON: Jeremy Stone MD ANESTHESIA: Regional. 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 In the prone jackknife position, the fistula originated at approximately 7 o'clock and extended transsphincteric to an internal opening just at the dentate line. The rest of the findings were unremarkable. DESCRIPTION OF PROCEDURE: The patient was placed on the operating table in the prone jackknife position after the placement of regional (spinal) anesthesia. Both buttocks were taped to retract them laterally, and then the lower back, buttocks, perianal, and genitalia areas were prepped with Betadine and draped in sterile fashion. A timeout was taken, and rigid proctosigmoidoscopic examination was carried out without evidence of abnormality. Next, an operative anoscope was placed, and using a syringe filled with hydrogen peroxide and a 20-gauge angiocatheter. The angiocatheter was introduced into the fistula opening and peroxide injected, and the internal opening of the fistula was identified. This was followed by placing a grooved director and opening up the fistula tract from external to internal approximately three-quarters of the distance. Granulation tissue was curetted out, and because there was some question as to whether more than 30% of the sphincter would be divided, a 0 silk seton was placed in the remainder of the fistula tract and tied. The wound was copiously irrigated with sterile saline and hemostasis secured with electrocautery, and then the wound packed with Xeroform and dry sterile dressings and the procedure terminated at this point and the patient transferred to the postanesthesia care unit in stable condition, awake and alert. ESTIMATED BLOOD LOSS: Minimal. DRAINS: None. SPECIMENS: None. I, Jeremy Stone, was physically present in the operating room from the time the patient was placed on the operating table until he was transferred to the postanesthesia care unit in my accompaniment. Jeremy Stone MD /[id number] MTDSilva
== END 2019-11-20 19:45 | disposition home or self-care (01) ==
LOC: JASU-SURG 11:04
PROVIDERS: ATTEND Surgery
PROC: 0DJD8ZZ Inspection of Lower Intestinal Tract, Via Natural or Artificial Opening Endoscopic (ICD-10-PCS; principal; 2019-11-20 13:00)
DX: K60.3 Anal fistula (principal)
CPT/HCPCS: 94760

== ENCOUNTER 2020-03-06 18:54 | Emergency (ER) | payer OTHER ==
[2020-03-06 19:09] VITALS: BP 144/87; PULSE 71; TEMP 98.1; BMI 25.0
[2020-03-06] MEDS ORDERED: FLUORESCEIN NA 1 EA STRIP OS ONE (19:29)
[2020-03-06] MEDS ORDERED: TETRACAINE 0.5% OPHTH SOLN 2 ML BOTTLE ONE (19:30)
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
--- OUTSIDE RECORDS SUMMARY | 2020-03-06 19:44 | XMS ---
:1975 Author Organization [facility] Support Name Relationship Address Phone UE, UNEMPLOYED Unavailable Unavailable Unavailable UE Unavailable Unavailable Unavailable SE Unavailable Unavailable Unavailable GOETZDEVIN [address]OCK [address] [phone] [place] [address] GOETZ, DEVIN Unavailable [address] Unavail able [place], [place] Re-disclosure Warning The records that you are about to access may contain information from federally- assisted alcohol or drug abuse programs. If such information is present, then the following federally mandated warning applies: This information has been disclosed to you from records protected by federal confidentiality rules (42 CFR part 2). The federal rules prohibit you from making any further disclosure of this information unless further disclosure is expressly permitted by the written consent of the person to whom it pertains or as otherwise permitted by 42 CFR part 2. A general authorization for the release of medical or other information is NOT sufficient for this purpose. The Federal rules restrict any use of the information to criminally investigate or prosecute any alcohol or drug abuse patient.The records that you are about to access may contain highly sensitive health information, the redisclosure of which is protected by Article 27-F of the [facility] Public Health law. If you continue you may haveaccess to information: Regarding HIV / AIDS; Provided by facilities licensed or operated by the [facility] Office of Mental Health; or Provided by the [facility] Office for People With Developmental Disabilities. If such information is present, then the following [facility] mandated warning applies: This information has been disclosed to you from confidential records which are protected by state law. State law prohibits you from making any further disclosure of this information without the specific written consent of the person to whom it pertains, or as otherwise permitted by law. Any unauthorized further disclosure in violation of state law may result in a fine or detention sentence or both. A general authorization for the release of medical or other information is NOT sufficient authorization for further disclosure. Insurance Providers Payer name Policy type Policy ID Covered Covered constitution party's Policy P sukhdev / Coverage constitution party ID relationship to [employer] type [id number] SP [id number] MEDICAID [id number] SP [id number] SELF PAY SP INSURANCE PEND. (FIN ASST UNIT) Results ID Date Data Source [id number] 11/17/2019 09:45:00 AM EDT [facility] Name Value Range Interpretation Description Data Sup porting Code Source(s) Document(s ) SARS [facility] CORONAVIRUS 2 RNA This lab was ordered by [facility] and reported by [facility]. ID Date Data Source [id number] 10/18/2019 04:15:00 PM EDT [facility] Name Value Range Interpretation Description Data Sup porting Code Source(s) Document(s ) SARS [facility] CORONAVIRUS 2 RNA This lab was ordered by [facility] and reported by [facility]. Procedure
== END 2020-03-06 20:17 | disposition home or self-care (01) ==
LOC: JERFT 18:54
DX: S05.02XA Injury of conjunctiva and corneal abrasion without foreign body, left eye, initial encounter (principal)
CPT/HCPCS: 99283-25

== ENCOUNTER 2022-05-13 16:14 | Emergency (ER) | payer OTHER ==
[2022-05-13 16:22] VITALS: BP 119/71; PULSE 99; RESP 20; TEMP 101.3; BMI 26.6
[2022-05-13] MEDS ORDERED: KETOROLAC TROMETHAMINE 30 MG/1 ML VIAL IVPUSH ONE (17:19)
[2022-05-13] MEDS ORDERED: SODIUM CHLORIDE 0.9% 500 ML INFUS.BAG IV ONE (17:19)
[2022-05-13] MEDS ORDERED: METOCLOPRAMIDE HCL INJECTION 10 MG/2 ML VIAL IVPUSH ONE (17:24)
[2022-05-13] MEDS ORDERED: KETOROLAC TROMETHAMINE 30 MG/1 ML VIAL ONE (17:29)
[2022-05-13] MEDS ORDERED: METOCLOPRAMIDE HCL INJECTION 10 MG/2 ML VIAL ONE (17:30)
== END 2022-05-13 19:45 | disposition home or self-care (01) ==
LOC: JER 16:14
PROC: 3E033GC Introduction of Other Therapeutic Substance into Peripheral Vein, Percutaneous Approach (ICD-10-PCS; principal; 2022-05-13)
DX: B34.9 Viral infection, unspecified (principal)
CPT/HCPCS: 0241U-QW; 71046-TC-FY; 99284-25

== ENCOUNTER 2022-05-15 10:46 | Emergency (ER) | payer OTHER ==
[2022-05-15 11:33] VITALS: BP 114/72; PULSE 87; RESP 18; TEMP 98; BMI 26.6
[2022-05-15] MEDS ORDERED: ACETAMINOPHEN 325 MG TABLET (FP) PO ONE (12:48)
[2022-05-15] MEDS ORDERED: METOCLOPRAMIDE HCL INJECTION 10 MG/2 ML VIAL IVPUSH ONE (13:04)
[2022-05-15] MEDS ORDERED: SODIUM CHLORIDE 0.9% 500 ML INFUS.BAG IV ONE (13:09)
[2022-05-15] MEDS ORDERED: METOCLOPRAMIDE HCL INJECTION 10 MG/2 ML VIAL ONE (13:12)
[2022-05-15 14:16] LABS: BASO % 1.4 % (0-2.0); EOS % 2.6 % (0-4.5); HEMATOCRIT 41.8 % (35.4-49); HEMOGLOBIN 14.6 GM/dL (11.7-16.9); LYMPH % 24.1 % (8-40); MCHC 34.8 g/dl (32.0-35.9); MEAN CELL VOLUME 91.9 fl (80-96); MEAN PLT VOLUME 8.9 fl (7.5-11.1); MONO % 17.1 % (3.8-10.2); NEUT % 54.8 % (42.8-82.8); PLATELET COUNT 195 10^3/uL (134-434); RBC 4.55 M/mm3 (4.00-5.60); RDW 12.1 % (11.9-15.9); WHITE BLOOD COUNT 2.9 K/mm3 (4.0-10.0)
[2022-05-15 14:21] LABS: ALBUMIN 3.2 g/dl (3.4-5.0); BLOOD UREA NITROGEN 10.2 mg/dL (7-18)
[2022-05-15 14:24] LABS: CREATININE 0.5 mg/dL (0.55-1.3)
[2022-05-15 14:25] LABS: BILIRUBIN,TOTAL 1.4 mg/dL (0.2-1); TOT PROT 8.9 g/dl (6.4-8.2)
== END 2022-05-15 18:05 | disposition home or self-care (01) ==
LOC: JER 10:46
PROC: 3E033GC Introduction of Other Therapeutic Substance into Peripheral Vein, Percutaneous Approach (ICD-10-PCS; principal; 2022-05-15)
DX: R51.9 Headache, unspecified (principal); K76.0 Fatty (change of) liver, not elsewhere classified
CPT/HCPCS: 0241U-QW; 36415; 70450-TC; 76705-TC; 80053; 85025; 99285-25

== ENCOUNTER 2022-05-30 15:53 | Emergency (ER) | payer OTHER ==
[2022-05-30 16:13] VITALS: BMI 28.3
[2022-05-30] MEDS ORDERED: DEXAMETHASONE SOD PHOSPHATE 10 MG/1 ML VIAL PO ONE (17:42)
[2022-05-30] MEDS ORDERED: DEXAMETHASONE SOD PHOSPHATE 10 MG/1 ML VIAL ONE (18:03)
[2022-05-30 18:16] LABS: EOS % 0.9 % (0-4.5); HEMATOCRIT 43.4 % (35.4-49); HEMOGLOBIN 15.1 GM/dL (11.7-16.9); LYMPH % 16.7 % (8-40); MCH 31.1 pg (25.7-33.7); MCHC 34.9 g/dl (32.0-35.9); MEAN CELL VOLUME 89.3 fl (80-96); MONO % 11.8 % (3.8-10.2); NEUT % 69.6 % (42.8-82.8); PLATELET COUNT 181 10^3/uL (134-434); RBC 4.86 M/mm3 (4.00-5.60); RDW 12.1 % (11.9-15.9); WHITE BLOOD COUNT 4.8 K/mm3 (4.0-10.0)
[2022-05-30 18:21] LABS: INR 1.25 (0.83-1.09); PROTHROMBIN TIME (PATIENT) 14.4 SEC (9.7-13.0)
[2022-05-30 18:40] LABS: ALBUMIN 3.2 g/dl (3.4-5.0); BLOOD UREA NITROGEN 6.3 mg/dL (7-18); CALCIUM 8.9 mg/dL (8.5-10.1)
[2022-05-30 18:43] LABS: CREATININE 0.5 mg/dL (0.55-1.3)
[2022-05-30 18:45] LABS: BILIRUBIN,TOTAL 1.1 mg/dL (0.2-1); TOT PROT 8.6 g/dl (6.4-8.2)
[2022-05-31 00:11] VITALS: BP 115/71; PULSE 76; RESP 18; TEMP 98.9
== END 2022-05-31 00:13 | disposition home or self-care (01) ==
LOC: JER 15:53
DX: R07.0 Pain in throat (principal); R51.9 Headache, unspecified
CPT/HCPCS: 0241U-QW; 36415; 70491-TC; 80053; 85025; 85610; 87651; 99285-25; J1100; Q9967

== ENCOUNTER 2022-06-07 22:35 | Inpatient (IN) | payer OTHER ==
[2022-06-07] MEDS ORDERED: SODIUM CHLORIDE 1,000 ML IV SCH (23:45)
[2022-06-08] LABS: BASO % 1.3 % (0-2.0); EOS % 1.8 % (0-4.5); HEMATOCRIT 43.2 % (35.4-49); LYMPH % 17.2 % (8-40); MCHC 34.6 g/dl (32.0-35.9); MEAN CELL VOLUME 89.5 fl (80-96); MEAN PLT VOLUME 6.8 fl (7.5-11.1); MONO % 18.7 % (3.8-10.2); PLATELET COUNT 210 10^3/uL (134-434); RBC 4.83 M/mm3 (4.00-5.60); RDW 12.5 % (11.9-15.9); WHITE BLOOD COUNT 2.6 K/mm3 (4.0-10.0)
[2022-06-08 00:06] LABS: INR 1.15 (0.83-1.09); PROTHROMBIN TIME (PATIENT) 13.3 SEC (9.7-13.0)
[2022-06-08 00:09] LABS: ACTIVATED PTT 33.7 SECONDS (25.2-36.5)
[2022-06-08] MEDS ORDERED: ACETAMINOPHEN 1000 MG/100 ML BAG IVPB ONE (00:16)
[2022-06-08] MEDS ORDERED: METOCLOPRAMIDE HCL INJECTION 10 MG/2 ML VIAL IVPUSH ONE (00:16)
[2022-06-08] MEDS ORDERED: METOCLOPRAMIDE HCL INJECTION 10 MG/2 ML VIAL ONE (00:22)
[2022-06-08] MEDS ORDERED: ACETAMINOPHEN INJECTION 100 ML IVPB ONE (00:23)
[2022-06-08 00:36] LABS: ALBUMIN 3.1 g/dl (3.4-5.0)
[2022-06-08 00:37] LABS: BLOOD UREA NITROGEN 8.2 mg/dL (7-18)
[2022-06-08 00:40] LABS: CREATININE 0.5 mg/dL (0.55-1.3)
[2022-06-08 00:41] LABS: TOT PROT 8.2 g/dl (6.4-8.2)
[2022-06-08 00:42] LABS: BILIRUBIN,TOTAL 0.9 mg/dL (0.2-1)
[2022-06-08] MEDS ORDERED: POTASSIUM CHLORIDE TABS 20 MEQ TABLET.ER (FP) PO ONE ×2 (02:09→02:31)
[2022-06-08] MEDS ORDERED: ENOXAPARIN NA (PORCINE) 40 MG/0.4 ML DISP.SYRIN SQ SCH (10:00)
[2022-06-08] MEDS: SODIUM CHLORIDE 1,000 ML IV SCH (10:53)
[2022-06-08 13:37] LABS: HIV INTERPRETATION PRESUMPTIVE POSITIVE (NEGATIVE)
[2022-06-08] MEDS ORDERED: TOPIRAMATE 25 MG TABLET PO ONE (15:45)
[2022-06-08] MEDS: GABAPENTIN 300 MG CAPSULE PO SCH ×2 (16:17→22:53)
[2022-06-08] MEDS ORDERED: TOPIRAMATE 25 MG TABLET ONE (16:19)
[2022-06-08] MEDS ORDERED: GABAPENTIN 300 MG CAPSULE ONE ×2 (16:19→22:14)
[2022-06-09 01:08] LABS: URINE APPEARANCE CLEAR; URINE BILIRUBIN NEGATIVE (NEGATIVE); URINE COLOR YELLOW; URINE GLUCOSE (UA) NEGATIVE (NEGATIVE); URINE KETONE NEGATIVE (NEGATIVE); URINE LEUK ESTERASE NEGATIVE (NEGATIVE); URINE NITRITE NEGATIVE (NEGATIVE); URINE PROTEIN NEGATIVE (NEGATIVE); URINE UROBILINOGEN 0.2 mg/dL (0.2-1.0)
[2022-06-09 01:16] LABS: METHADONE, UR NEGATIVE (NEGATIVE); OPIATES, URI NEGATIVE (NEGATIVE); PHENCYCLIDINE,URINE NEGATIVE (NEGATIVE); URINE BENZODIAZEPINES NEGATIVE (NEGATIVE)
[2022-06-09 01:25] LABS: COCAINE, UR NEGATIVE (NEGATIVE); URINE AMPHETAMINES NEGATIVE (NEGATIVE); URINE BARBITURATES NEGATIVE (NEGATIVE)
[2022-06-09] MEDS: SODIUM CHLORIDE 1,000 ML IV SCH (06:39)
[2022-06-09] MEDS: ACETAMINOPHEN 1000 MG/100 ML BAG IVPB PRN ×2 (08:37→18:56)
[2022-06-09] MEDS: GABAPENTIN 300 MG CAPSULE PO SCH ×2 (10:07→22:15)
[2022-06-09 10:26] LABS: BASO % 2.5 % (0-2.0); EOS % 3.2 % (0-4.5); HEMATOCRIT 38.9 % (35.4-49); HEMOGLOBIN 13.8 GM/dL (11.7-16.9); LYMPH % 18.3 % (8-40); MCH 31.9 pg (25.7-33.7); MCHC 35.6 g/dl (32.0-35.9); MEAN CELL VOLUME 89.5 fl (80-96); MEAN PLT VOLUME 7.1 fl (7.5-11.1); MONO % 16.4 % (3.8-10.2); NEUT % 59.6 % (42.8-82.8); PLATELET COUNT 188 10^3/uL (134-434); RBC 4.34 M/mm3 (4.00-5.60); RDW 12.7 % (11.9-15.9); WHITE BLOOD COUNT 2.8 K/mm3 (4.0-10.0)
[2022-06-09 10:52] LABS: CHLORIDE 97 mmol/L (98-107); SODIUM 135 mmol/L (136-145)
[2022-06-09 10:54] LABS: CALCIUM 9.1 mg/dL (8.5-10.1)
[2022-06-09 10:55] LABS: ALBUMIN 3.1 g/dl (3.4-5.0); BLOOD UREA NITROGEN 8.3 mg/dL (7-18); CO2 30 mmol/L (21-32); GLUCOSE,RANDOM 107 mg/dL (74-106); MAGNESIUM 1.9 mg/dL (1.8-2.4)
[2022-06-09 10:58] LABS: CREATININE 0.5 mg/dL (0.55-1.3); PHOSPHOROUS 3.4 mg/dL (2.5-4.9); SGOT/AST 29 U/L (15-37); SGPT/ALT 42 U/L (13-61)
[2022-06-09 10:59] LABS: BILIRUBIN,TOTAL 0.9 mg/dL (0.2-1); TOT PROT 7.7 g/dl (6.4-8.2)
[2022-06-09 11:01] LABS: ALK PHOS 111 U/L (45-117)
[2022-06-09 11:04] LABS: ANION GAP 7 MMOL/L (8-16)
[2022-06-09] MEDS ORDERED: FLU VACC QS2022-23(6MOS UP)/PF 60 MCG/0.5 ML SYRINGE IM ONE (15:00)
[2022-06-09 15:02] VITALS: BMI 24.0
[2022-06-09] MEDS ORDERED: SODIUM CHLORIDE 0.9%/KCL 20 MEQ/1,000 ML INFUS.BAG IV SCH (15:15)
[2022-06-09] MEDS: KCL 10 MEQ IVPB 10 MEQ/100 ML INFUS.BAG IVPB SCH ×3 (15:30→17:44)
[2022-06-09] MEDS: POTASSIUM CHLORIDE TABS 20 MEQ TABLET.ER (FP) PO SCH ×2 (15:30→22:15)
[2022-06-09] MEDS: MELATONIN 5 MG TABLETS PO PRN (22:15)
[2022-06-09] MEDS: NYSTATIN 500,000 UNITS/5 ML SUSPENSION PO SCH (23:57)
[2022-06-10] MEDS: NYSTATIN 500,000 UNITS/5 ML SUSPENSION PO SCH ×4 (00:35→18:27)
[2022-06-10] MEDS ORDERED: oxyCODONE HCL 5 MG TABLET PO ONE (09:15)
[2022-06-10] MEDS: GABAPENTIN 300 MG CAPSULE PO SCH ×2 (09:31→21:00)
[2022-06-10 13:32] LABS: BLOOD UREA NITROGEN 7.6 mg/dL (7-18); CALCIUM 8.7 mg/dL (8.5-10.1)
[2022-06-10 13:33] LABS: ALBUMIN 3.3 g/dl (3.4-5.0)
[2022-06-10 13:36] LABS: CREATININE 0.5 mg/dL (0.55-1.3)
[2022-06-10 13:37] LABS: BILIRUBIN,TOTAL 0.7 mg/dL (0.2-1); TOT PROT 8.2 g/dl (6.4-8.2)
[2022-06-10] MEDS ORDERED: LIDOCAINE HCL 1%, 10 MG/ML (20ML VIAL) SQ ONE (16:30)
[2022-06-10 17:55] LABS: BF GLUCOSE (CSF ONLY) 41 mg/dL (40-70)
[2022-06-10 18:52] LABS: CSF APPEARANCE CLEAR (CLEAR); CSF COLOR COLORLESS (COLORLESS)
[2022-06-10 18:59] LABS: CSF WBC 10 mm3 (0-5)
[2022-06-11] MEDS: NYSTATIN 500,000 UNITS/5 ML SUSPENSION PO SCH ×5 (00:48→23:04)
[2022-06-11] MEDS: GABAPENTIN 300 MG CAPSULE PO SCH ×2 (09:07→21:35)
[2022-06-11] MEDS: ACETAMINOPHEN 325 MG TABLET (FP) PO PRN (21:34)
[2022-06-11] MEDS: MELATONIN 5 MG TABLETS PO PRN (21:35)
[2022-06-12] MEDS: NYSTATIN 500,000 UNITS/5 ML SUSPENSION PO SCH ×4 (07:01→23:04)
[2022-06-12 08:20] LABS: ALBUMIN 2.9 g/dl (3.4-5.0); CALCIUM 8.6 mg/dL (8.5-10.1)
[2022-06-12 08:23] LABS: CREATININE 0.4 mg/dL (0.55-1.3)
[2022-06-12 08:24] LABS: TOT PROT 7.5 g/dl (6.4-8.2)
[2022-06-12 08:27] LABS: BLOOD UREA NITROGEN 8.1 mg/dL (7-18)
[2022-06-12] MEDS: ACETAMINOPHEN 325 MG TABLET (FP) PO PRN ×2 (08:41→18:26)
[2022-06-12 09:09] LABS: BASO % 1.1 % (0-2.0); EOS % 6.4 % (0-4.5); HEMATOCRIT 38.6 % (35.4-49); HEMOGLOBIN 13.5 GM/dL (11.7-16.9); LYMPH % 19.1 % (8-40); MCH 31.3 pg (25.7-33.7); MCHC 34.9 g/dl (32.0-35.9); MEAN CELL VOLUME 89.6 fl (80-96); MEAN PLT VOLUME 7.3 fl (7.5-11.1); MONO % 10.4 % (3.8-10.2); PLATELET COUNT 149 10^3/uL (134-434); RBC 4.31 M/mm3 (4.00-5.60); RDW 12.7 % (11.9-15.9); WHITE BLOOD COUNT 3.3 K/mm3 (4.0-10.0)
[2022-06-12] MEDS: GABAPENTIN 300 MG CAPSULE PO SCH ×2 (09:43→21:50)
[2022-06-12] MEDS: POTASSIUM CHLORIDE TABS 20 MEQ TABLET.ER (FP) PO SCH (13:41)
[2022-06-12 16:11] LABS: CMV IgM < 30.0 AU/mL (0.0-29.9)
[2022-06-12] MEDS: WATER IVPB SCH (17:04)
[2022-06-12] MEDS: AMPHOTERICIN B LIPOSOMAL IVPB SCH (17:04)
[2022-06-12] MEDS: DEXTROSE 5% IVPB SCH (17:04)
[2022-06-12] MEDS: FLUCYTOSINE 500 MG CAPSULE PO SCH ×2 (17:06→21:50)
[2022-06-12] MEDS ORDERED: IBUPROFEN 400 MG TABLET (FP) PO ONE (19:51)
[2022-06-12] MEDS ORDERED: POTASSIUM CHLORIDE TABS 20 MEQ TABLET.ER (FP) PO ONE (22:00)
[2022-06-13] MEDS: NYSTATIN 500,000 UNITS/5 ML SUSPENSION PO SCH ×3 (06:04→18:01)
[2022-06-13 08:09] LABS: BASO % 1.4 % (0-2.0); EOS % 8.1 % (0-4.5); HEMATOCRIT 37.6 % (35.4-49); HEMOGLOBIN 13.2 GM/dL (11.7-16.9); LYMPH % 22.3 % (8-40); MCH 31.5 pg (25.7-33.7); MEAN CELL VOLUME 89.9 fl (80-96); MEAN PLT VOLUME 7.4 fl (7.5-11.1); MONO % 10.2 % (3.8-10.2); PLATELET COUNT 124 10^3/uL (134-434); RBC 4.18 M/mm3 (4.00-5.60); RDW 12.7 % (11.9-15.9); WHITE BLOOD COUNT 3.3 K/mm3 (4.0-10.0)
[2022-06-13 08:10] LABS: CALCIUM 8.5 mg/dL (8.5-10.1)
[2022-06-13 08:11] LABS: ALBUMIN 2.8 g/dl (3.4-5.0); BLOOD UREA NITROGEN 10.9 mg/dL (7-18)
[2022-06-13 08:14] LABS: CREATININE 0.6 mg/dL (0.55-1.3)
[2022-06-13 08:15] LABS: BILIRUBIN,TOTAL 1.2 mg/dL (0.2-1)
[2022-06-13 08:16] LABS: TOT PROT 7.3 g/dl (6.4-8.2)
[2022-06-13] MEDS: ACETAMINOPHEN 1000 MG/100 ML BAG IVPB PRN ×2 (08:57→16:09)
[2022-06-13] MEDS: FLUCYTOSINE 500 MG CAPSULE PO SCH ×4 (10:32→22:33)
[2022-06-13] MEDS: POTASSIUM CHLORIDE TABS 20 MEQ TABLET.ER (FP) PO SCH (10:32)
[2022-06-13] MEDS: GABAPENTIN 300 MG CAPSULE PO SCH ×2 (10:32→22:33)
[2022-06-13] MEDS: WATER IVPB SCH ×2 (11:22→17:50)
[2022-06-13] MEDS: DEXTROSE 5% IVPB SCH ×2 (11:22→17:50)
[2022-06-13] MEDS: AMPHOTERICIN B LIPOSOMAL IVPB SCH ×2 (11:22→17:50)
[2022-06-13] MEDS: MELATONIN 5 MG TABLETS PO PRN (22:33)
[2022-06-14] MEDS: NYSTATIN 500,000 UNITS/5 ML SUSPENSION PO SCH ×4 (00:05→17:04)
[2022-06-14] MEDS: ACETAMINOPHEN 325 MG TABLET (FP) PO PRN ×3 (02:05→16:18)
[2022-06-14 08:23] LABS: BASO % 2.3 % (0-2.0); EOS % 9.4 % (0-4.5); HEMATOCRIT 36.6 % (35.4-49); HEMOGLOBIN 12.8 GM/dL (11.7-16.9); LYMPH % 29.3 % (8-40); MCH 31.3 pg (25.7-33.7); MEAN CELL VOLUME 89.5 fl (80-96); MEAN PLT VOLUME 7.7 fl (7.5-11.1); MONO % 13.3 % (3.8-10.2); NEUT % 45.7 % (42.8-82.8); PLATELET COUNT 135 10^3/uL (134-434); RBC 4.09 M/mm3 (4.00-5.60); RDW 12.7 % (11.9-15.9); WHITE BLOOD COUNT 2.4 K/mm3 (4.0-10.0)
[2022-06-14 08:47] LABS: CALCIUM 8.5 mg/dL (8.5-10.1)
[2022-06-14 08:48] LABS: ALBUMIN 2.9 g/dl (3.4-5.0); BLOOD UREA NITROGEN 10.4 mg/dL (7-18)
[2022-06-14 08:51] LABS: CREATININE 0.6 mg/dL (0.55-1.3)
[2022-06-14 08:52] LABS: TOT PROT 7.4 g/dl (6.4-8.2)
[2022-06-14] MEDS: POTASSIUM CHLORIDE TABS 20 MEQ TABLET.ER (FP) PO SCH (09:01)
[2022-06-14] MEDS: GABAPENTIN 300 MG CAPSULE PO SCH ×2 (09:01→21:11)
[2022-06-14] MEDS: FLUCYTOSINE 500 MG CAPSULE PO SCH ×4 (09:31→21:11)
[2022-06-14] MEDS: KCL 10 MEQ IVPB 10 MEQ/100 ML INFUS.BAG IVPB SCH ×3 (11:47→14:36)
[2022-06-14] MEDS: SULFAMETHOXAZOLE/TRIMETHOPRIM 800MG/160MG D.S. TABLET PO SCH (14:36)
[2022-06-14] MEDS ORDERED: AZITHROMYCIN IVPB SCH (15:15)
[2022-06-14] MEDS ORDERED: WATER IVPB SCH (15:15)
[2022-06-14] MEDS ORDERED: DEXTROSE 5% IVPB SCH (15:15)
[2022-06-14] MEDS: AZITHROMYCIN 600 MG TABLET PO SCH (16:18)
[2022-06-14] MEDS: AMPHOTERICIN B LIPOSOMAL IVPB SCH (16:41)
[2022-06-14] MEDS: WATER IVPB SCH (16:41)
[2022-06-14] MEDS: DEXTROSE 5% IVPB SCH (16:41)
[2022-06-15] MEDS: NYSTATIN 500,000 UNITS/5 ML SUSPENSION PO SCH ×4 (00:11→17:36)
[2022-06-15] MEDS: ACETAMINOPHEN 325 MG TABLET (FP) PO PRN ×2 (02:31→09:57)
[2022-06-15] MEDS: MELATONIN 5 MG TABLETS PO PRN (02:32)
[2022-06-15 09:52] LABS: BASO % 2.3 % (0-2.0); EOS % 7.2 % (0-4.5); HEMATOCRIT 38.1 % (35.4-49); HEMOGLOBIN 13.4 GM/dL (11.7-16.9); LYMPH % 35.3 % (8-40); MCH 31.8 pg (25.7-33.7); MCHC 35.2 g/dl (32.0-35.9); MEAN CELL VOLUME 90.3 fl (80-96); MEAN PLT VOLUME 7.8 fl (7.5-11.1); MONO % 13.8 % (3.8-10.2); NEUT % 41.4 % (42.8-82.8); PLATELET COUNT 144 10^3/uL (134-434); RBC 4.22 M/mm3 (4.00-5.60); RDW 12.9 % (11.9-15.9); WHITE BLOOD COUNT 2.7 K/mm3 (4.0-10.0)
[2022-06-15] MEDS: GABAPENTIN 300 MG CAPSULE PO SCH ×2 (09:57→21:18)
[2022-06-15] MEDS: POTASSIUM CHLORIDE TABS 20 MEQ TABLET.ER (FP) PO SCH (09:57)
[2022-06-15] MEDS: FLUCYTOSINE 500 MG CAPSULE PO SCH ×4 (09:58→21:18)
[2022-06-15] MEDS: SULFAMETHOXAZOLE/TRIMETHOPRIM 800MG/160MG D.S. TABLET PO SCH (09:58)
[2022-06-15 10:02] LABS: BLOOD UREA NITROGEN 11.5 mg/dL (7-18); CALCIUM 8.9 mg/dL (8.5-10.1)
[2022-06-15 10:03] LABS: ALBUMIN 3.1 g/dl (3.4-5.0); MAGNESIUM 2.1 mg/dL (1.8-2.4)
[2022-06-15 10:05] LABS: PHOSPHOROUS 4.6 mg/dL (2.5-4.9)
[2022-06-15 10:06] LABS: CREATININE 0.6 mg/dL (0.55-1.3)
[2022-06-15 10:07] LABS: TOT PROT 7.9 g/dl (6.4-8.2)
[2022-06-15] MEDS ORDERED: LIDOCAINE HCL 1%, 10 MG/ML (20ML VIAL) ONE (14:20)
[2022-06-15] MEDS ORDERED: LIDOCAINE HCL 1%, 10 MG/ML (20ML VIAL) SQ ONE ×2 (14:30)
[2022-06-15] MEDS: morphine SULFATE 4 MG/ML VIAL IVPUSH ONE ×2 (14:32→14:40)
[2022-06-15] MEDS: AMPHOTERICIN B LIPOSOMAL IVPB SCH (16:17)
[2022-06-15] MEDS: WATER IVPB SCH (16:17)
[2022-06-15] MEDS: DEXTROSE 5% IVPB SCH (16:17)
[2022-06-16] MEDS: NYSTATIN 500,000 UNITS/5 ML SUSPENSION PO SCH ×4 (00:55→17:59)
[2022-06-16 09:05] LABS: BASO % 1.5 % (0-2.0); EOS % 5.6 % (0-4.5); HEMATOCRIT 36.4 % (35.4-49); HEMOGLOBIN 12.7 GM/dL (11.7-16.9); LYMPH % 28.1 % (8-40); MCH 31.4 pg (25.7-33.7); MCHC 34.8 g/dl (32.0-35.9); MEAN CELL VOLUME 90.1 fl (80-96); MEAN PLT VOLUME 7.8 fl (7.5-11.1); NEUT % 50.8 % (42.8-82.8); PLATELET COUNT 154 10^3/uL (134-434); RBC 4.03 M/mm3 (4.00-5.60); RDW 12.9 % (11.9-15.9); WHITE BLOOD COUNT 2.4 K/mm3 (4.0-10.0)
[2022-06-16 09:21] LABS: CALCIUM 8.8 mg/dL (8.5-10.1)
[2022-06-16 09:22] LABS: ALBUMIN 2.9 g/dl (3.4-5.0); BLOOD UREA NITROGEN 13.9 mg/dL (7-18)
[2022-06-16 09:24] LABS: CREATININE 0.6 mg/dL (0.55-1.3)
[2022-06-16 09:26] LABS: BILIRUBIN,TOTAL 0.8 mg/dL (0.2-1); TOT PROT 7.4 g/dl (6.4-8.2)
[2022-06-16] MEDS: POTASSIUM CHLORIDE TABS 20 MEQ TABLET.ER (FP) PO SCH (10:32)
[2022-06-16] MEDS: SULFAMETHOXAZOLE/TRIMETHOPRIM 800MG/160MG D.S. TABLET PO SCH (10:33)
[2022-06-16] MEDS: GABAPENTIN 300 MG CAPSULE PO SCH ×2 (10:33→22:00)
[2022-06-16] MEDS: ACETAMINOPHEN 325 MG TABLET (FP) PO PRN ×2 (10:47→22:01)
[2022-06-16] MEDS: FLUCYTOSINE 500 MG CAPSULE PO SCH ×5 (12:34→22:00)
[2022-06-16] MEDS: AZITHROMYCIN 600 MG TABLET PO SCH (12:40)
[2022-06-16] MEDS ORDERED: POTASSIUM CHLORIDE TABS 20 MEQ TABLET.ER (FP) PO ONE (16:45)
[2022-06-16] MEDS: ONDANSETRON 4 MG/2 ML VIAL IVPUSH SCH ×2 (17:58→22:00)
[2022-06-16] MEDS: DEXTROSE 5% IVPB SCH (17:59)
[2022-06-16] MEDS: WATER IVPB SCH (17:59)
[2022-06-16] MEDS: AMPHOTERICIN B LIPOSOMAL IVPB SCH (17:59)
[2022-06-16 18:30] LABS: BF GLUCOSE (CSF ONLY) 21 mg/dL (40-70)
[2022-06-16 19:20] LABS: CSF APPEARANCE CLEAR (CLEAR); CSF COLOR COLORLESS (COLORLESS)
[2022-06-16 19:33] LABS: CSF WBC 18 mm3 (0-5)
[2022-06-16] MEDS: MELATONIN 5 MG TABLETS PO PRN (22:01)
[2022-06-17] MEDS: NYSTATIN 500,000 UNITS/5 ML SUSPENSION PO SCH ×5 (00:10→23:58)
[2022-06-17] MEDS: ONDANSETRON 4 MG/2 ML VIAL IVPUSH SCH ×6 (02:20→21:33)
[2022-06-17 08:38] LABS: BASO % 2.1 % (0-2.0); EOS % 9.9 % (0-4.5); HEMATOCRIT 38.2 % (35.4-49); HEMOGLOBIN 13.4 GM/dL (11.7-16.9); MCH 31.8 pg (25.7-33.7); MEAN CELL VOLUME 90.7 fl (80-96); MEAN PLT VOLUME 7.5 fl (7.5-11.1); PLATELET COUNT 145 10^3/uL (134-434); RBC 4.21 M/mm3 (4.00-5.60); RDW 12.5 % (11.9-15.9); WHITE BLOOD COUNT 2.5 K/mm3 (4.0-10.0)
[2022-06-17] MEDS: ACETAMINOPHEN 325 MG TABLET (FP) PO PRN ×2 (08:52→19:46)
[2022-06-17 08:58] LABS: ALBUMIN 2.9 g/dl (3.4-5.0); BLOOD UREA NITROGEN 15.1 mg/dL (7-18); CALCIUM 9.2 mg/dL (8.5-10.1)
[2022-06-17 09:01] LABS: CREATININE 0.7 mg/dL (0.55-1.3)
[2022-06-17 09:02] LABS: BILIRUBIN,TOTAL 1.2 mg/dL (0.2-1); TOT PROT 7.5 g/dl (6.4-8.2)
[2022-06-17] MEDS: GABAPENTIN 300 MG CAPSULE PO SCH ×2 (09:10→21:34)
[2022-06-17] MEDS: SULFAMETHOXAZOLE/TRIMETHOPRIM 800MG/160MG D.S. TABLET PO SCH (09:10)
[2022-06-17] MEDS: POTASSIUM CHLORIDE TABS 20 MEQ TABLET.ER (FP) PO SCH (09:10)
[2022-06-17] MEDS: AZITHROMYCIN 600 MG TABLET PO SCH (09:10)
[2022-06-17] MEDS: FLUCYTOSINE 500 MG CAPSULE PO SCH ×4 (10:39→21:33)
[2022-06-17] MEDS ORDERED: SODIUM CHLORIDE 1,000 ML IV STA (13:52)
[2022-06-17] MEDS: SODIUM CHLORIDE 1,000 ML IV SCH (14:57)
[2022-06-17] MEDS: DEXTROSE 5% IVPB SCH (16:53)
[2022-06-17] MEDS: AMPHOTERICIN B LIPOSOMAL IVPB SCH (16:53)
[2022-06-17] MEDS: WATER IVPB SCH (16:53)
[2022-06-17] MEDS ORDERED: valACYclovir HCL 1000 MG TABLET PO SCH (22:00)
[2022-06-18] MEDS: ONDANSETRON 4 MG/2 ML VIAL IVPUSH SCH ×6 (00:12→21:51)
[2022-06-18] MEDS: NYSTATIN 500,000 UNITS/5 ML SUSPENSION PO SCH ×3 (05:27→17:35)
[2022-06-18] MEDS: ACETAMINOPHEN 325 MG TABLET (FP) PO PRN ×3 (05:27→17:38)
[2022-06-18 08:25] LABS: BASO % 1.9 % (0-2.0); EOS % 6.7 % (0-4.5); HEMATOCRIT 35.4 % (35.4-49); HEMOGLOBIN 12.6 GM/dL (11.7-16.9); LYMPH % 22.9 % (8-40); MCH 31.7 pg (25.7-33.7); MCHC 35.5 g/dl (32.0-35.9); MEAN CELL VOLUME 89.3 fl (80-96); MEAN PLT VOLUME 7.7 fl (7.5-11.1); MONO % 18.5 % (3.8-10.2); PLATELET COUNT 138 10^3/uL (134-434); RBC 3.96 M/mm3 (4.00-5.60); RDW 12.6 % (11.9-15.9)
[2022-06-18 08:35] LABS: CHLORIDE 103 mmol/L (98-107); SODIUM 134 mmol/L (136-145)
[2022-06-18 08:37] LABS: CALCIUM 8.7 mg/dL (8.5-10.1)
[2022-06-18 08:38] LABS: ALBUMIN 2.8 g/dl (3.4-5.0); BLOOD UREA NITROGEN 11.5 mg/dL (7-18); CO2 22 mmol/L (21-32); GLUCOSE,RANDOM 97 mg/dL (74-106); MAGNESIUM 1.8 mg/dL (1.8-2.4)
[2022-06-18 08:41] LABS: CREATININE 0.5 mg/dL (0.55-1.3); PHOSPHOROUS 3.6 mg/dL (2.5-4.9); SGOT/AST 23 U/L (15-37); SGPT/ALT 29 U/L (13-61)
[2022-06-18 08:42] LABS: BILIRUBIN,TOTAL 0.9 mg/dL (0.2-1); TOT PROT 7.3 g/dl (6.4-8.2)
[2022-06-18 08:44] LABS: ALK PHOS 114 U/L (45-117)
[2022-06-18 08:50] LABS: ANION GAP 9 MMOL/L (8-16)
[2022-06-18] MEDS: POTASSIUM CHLORIDE TABS 20 MEQ TABLET.ER (FP) PO SCH (09:02)
[2022-06-18] MEDS: GABAPENTIN 300 MG CAPSULE PO SCH ×2 (09:02→21:54)
[2022-06-18] MEDS: SULFAMETHOXAZOLE/TRIMETHOPRIM 800MG/160MG D.S. TABLET PO SCH (09:02)
[2022-06-18] MEDS: valACYclovir HCL 500 MG TABLET (FP) PO SCH ×2 (09:04→21:54)
[2022-06-18] MEDS ORDERED: POTASSIUM CHLORIDE TABS 20 MEQ TABLET.ER (FP) PO ONE ×4 (10:38→15:00)
[2022-06-18 11:13] LABS: ANISOCYTOSIS 0; HELMET CELLS 0; HOWELL-JOLLY BODIES 0; MACROCYTOSIS 0; OVALOCYTE 0; ROULEAU 0; SICKELED CELLS 0; TARGET CELLS 0; TEAR DROP CELLS 0; TOXIC GRANULATION 0
[2022-06-18] MEDS: FLUCYTOSINE 500 MG CAPSULE PO SCH ×4 (11:27→21:54)
[2022-06-18 11:33] LABS: WHITE BLOOD COUNT 1.8 K/mm3 (4.0-10.0)
[2022-06-18] MEDS: SODIUM CHLORIDE 1,000 ML IV SCH (15:06)
[2022-06-18] MEDS: WATER IVPB SCH (17:08)
[2022-06-18] MEDS: DEXTROSE 5% IVPB SCH (17:08)
[2022-06-18] MEDS: AMPHOTERICIN B LIPOSOMAL IVPB SCH (17:08)
[2022-06-19] MEDS: ONDANSETRON 4 MG/2 ML VIAL IVPUSH SCH ×6 (00:50→21:50)
[2022-06-19] MEDS: NYSTATIN 500,000 UNITS/5 ML SUSPENSION PO SCH ×4 (00:50→17:14)
[2022-06-19] MEDS: ACETAMINOPHEN 325 MG TABLET (FP) PO PRN (03:08)
[2022-06-19] MEDS ORDERED: ACETAMINOPHEN 1000 MG/100 ML BAG IVPB PRN (08:05)
[2022-06-19] MEDS: GABAPENTIN 300 MG CAPSULE PO SCH ×2 (09:53→21:49)
[2022-06-19] MEDS: POTASSIUM CHLORIDE TABS 20 MEQ TABLET.ER (FP) PO SCH (09:53)
[2022-06-19] MEDS: valACYclovir HCL 500 MG TABLET (FP) PO SCH ×2 (09:53→21:50)
[2022-06-19 09:56] LABS: HEMATOCRIT 36.6 % (35.4-49); HEMOGLOBIN 12.8 GM/dL (11.7-16.9); MCH 31.3 pg (25.7-33.7); MEAN CELL VOLUME 89.4 fl (80-96); MEAN PLT VOLUME 7.4 fl (7.5-11.1); PLATELET COUNT 150 10^3/uL (134-434); RBC 4.09 M/mm3 (4.00-5.60); RDW 12.3 % (11.9-15.9)
[2022-06-19] MEDS: FLUCYTOSINE 500 MG CAPSULE PO SCH ×4 (09:57→21:49)
[2022-06-19 10:14] LABS: CHLORIDE 100 mmol/L (98-107); SODIUM 133 mmol/L (136-145)
[2022-06-19 10:17] LABS: WHITE BLOOD COUNT 1.6 K/mm3 (4.0-10.0)
[2022-06-19 10:18] LABS: CALCIUM 8.9 mg/dL (8.5-10.1)
[2022-06-19 10:19] LABS: BLOOD UREA NITROGEN 12.6 mg/dL (7-18); CO2 24 mmol/L (21-32); GLUCOSE,RANDOM 110 mg/dL (74-106); MAGNESIUM 1.7 mg/dL (1.8-2.4)
[2022-06-19 10:21] LABS: CREATININE 0.5 mg/dL (0.55-1.3); PHOSPHOROUS 4.2 mg/dL (2.5-4.9)
[2022-06-19 10:22] LABS: SGOT/AST 20 U/L (15-37); SGPT/ALT 27 U/L (13-61)
[2022-06-19 10:23] LABS: BILIRUBIN,TOTAL 0.8 mg/dL (0.2-1); TOT PROT 7.6 g/dl (6.4-8.2)
[2022-06-19 10:24] LABS: ALK PHOS 119 U/L (45-117)
[2022-06-19 10:27] LABS: ANION GAP 9 MMOL/L (8-16)
[2022-06-19 10:48] LABS: ANISOCYTOSIS 2+; MACROCYTOSIS 0; PLATELET ESTIMATE DECREASED
[2022-06-19] MEDS ORDERED: MAGNESIUM SULF 50% (8.12 MEQ/2 ML-1 GM VIAL) IVPB ONE (11:27)
[2022-06-19] MEDS ORDERED: SODIUM CHLORIDE 1,000 ML with POTASSIUM CHLORIDE 40 MEQ IV SCH (12:30)
[2022-06-19] MEDS: AMPHOTERICIN B LIPOSOMAL IVPB SCH (16:03)
[2022-06-19] MEDS: WATER IVPB SCH (16:03)
[2022-06-19] MEDS: DEXTROSE 5% IVPB SCH (16:03)
[2022-06-19] MEDS: POTASSIUM CHLORIDE 40 MEQ in SODIUM CHLORIDE 1,000 ML IV SCH (17:23)
[2022-06-19] MEDS ORDERED: MELATONIN 5 MG TABLETS PO PRN (19:41)
[2022-06-19] MEDS: ACETAMINOPHEN 1000 MG/100 ML BAG IVPB PRN (21:57)
[2022-06-20] MEDS: NYSTATIN 500,000 UNITS/5 ML SUSPENSION PO SCH ×4 (00:27→17:37)
[2022-06-20] MEDS: ONDANSETRON 4 MG/2 ML VIAL IVPUSH SCH ×6 (00:27→21:45)
[2022-06-20] MEDS: ACETAMINOPHEN 1000 MG/100 ML BAG IVPB PRN (06:09)
[2022-06-20 09:11] LABS: HEMATOCRIT 35.9 % (35.4-49); HEMOGLOBIN 12.7 GM/dL (11.7-16.9); MCH 31.5 pg (25.7-33.7); MCHC 35.4 g/dl (32.0-35.9); MEAN CELL VOLUME 88.9 fl (80-96); MEAN PLT VOLUME 7.5 fl (7.5-11.1); PLATELET COUNT 157 10^3/uL (134-434); RBC 4.03 M/mm3 (4.00-5.60); RDW 12.6 % (11.9-15.9)
[2022-06-20] MEDS ORDERED: SULFAMETHOXAZOLE/TRIMETHOPRIM 800MG/160MG D.S. TABLET PO SCH (10:00)
[2022-06-20] MEDS ORDERED: POTASSIUM CHLORIDE TABS 20 MEQ TABLET.ER (FP) PO SCH (10:00)
[2022-06-20 10:04] LABS: CHLORIDE 104 mmol/L (98-107); SODIUM 138 mmol/L (136-145)
[2022-06-20 10:17] LABS: ANISOCYTOSIS 1+; MACROCYTOSIS 0; PLATELET ESTIMATE DECREASED
[2022-06-20 10:26] LABS: CALCIUM 8.9 mg/dL (8.5-10.1)
[2022-06-20 10:27] LABS: ALBUMIN 2.8 g/dl (3.4-5.0); CO2 22 mmol/L (21-32); GLUCOSE,RANDOM 104 mg/dL (74-106)
[2022-06-20 10:30] LABS: CREATININE 0.6 mg/dL (0.55-1.3); PHOSPHOROUS 4.1 mg/dL (2.5-4.9); SGOT/AST 20 U/L (15-37); SGPT/ALT 25 U/L (13-61)
[2022-06-20 10:31] LABS: BILIRUBIN,TOTAL 0.8 mg/dL (0.2-1); TOT PROT 7.4 g/dl (6.4-8.2)
[2022-06-20 10:33] LABS: ALK PHOS 111 U/L (45-117)
[2022-06-20] MEDS: GABAPENTIN 300 MG CAPSULE PO SCH ×2 (10:57→21:45)
[2022-06-20] MEDS: SULFAMETHOXAZOLE/TRIMETHOPRIM 800MG/160MG D.S. TABLET PO SCH (10:57)
[2022-06-20] MEDS: valACYclovir HCL 500 MG TABLET (FP) PO SCH ×2 (10:57→21:45)
[2022-06-20 11:07] LABS: ANION GAP 12 MMOL/L (8-16)
[2022-06-20] MEDS: FLUCYTOSINE 500 MG CAPSULE PO SCH ×4 (12:50→21:45)
[2022-06-20] MEDS: AMPHOTERICIN B LIPOSOMAL IVPB SCH (16:58)
[2022-06-20] MEDS: DEXTROSE 5% IVPB SCH (16:58)
[2022-06-20] MEDS: WATER IVPB SCH (16:58)
[2022-06-20] MEDS: POTASSIUM CHLORIDE 40 MEQ in SODIUM CHLORIDE 1,000 ML IV SCH ×2 (17:19→22:32)
[2022-06-20 18:02] LABS: CALCIUM 8.8 mg/dL (8.5-10.1)
[2022-06-20 18:03] LABS: BLOOD UREA NITROGEN 10.2 mg/dL (7-18)
[2022-06-20 18:06] LABS: CREATININE 0.6 mg/dL (0.55-1.3)
[2022-06-20] MEDS: POTASSIUM CHLORIDE TABS 20 MEQ TABLET.ER (FP) PO SCH (21:45)
[2022-06-21] MEDS: ONDANSETRON 4 MG/2 ML VIAL IVPUSH SCH ×6 (02:00→20:51)
[2022-06-21] MEDS: NYSTATIN 500,000 UNITS/5 ML SUSPENSION PO SCH ×4 (06:24→17:18)
[2022-06-21] MEDS ORDERED: ACETAMINOPHEN 1000 MG/100 ML BAG IVPB ONE (08:27)
[2022-06-21] MEDS ORDERED: IBUPROFEN 400 MG TABLET (FP) PO ONE (09:21)
[2022-06-21 09:40] LABS: BASO % 2.2 % (0-2.0); EOS % 3.9 % (0-4.5); HEMATOCRIT 37.1 % (35.4-49); HEMOGLOBIN 13.1 GM/dL (11.7-16.9); LYMPH % 21.3 % (8-40); MCH 31.3 pg (25.7-33.7); MCHC 35.3 g/dl (32.0-35.9); MEAN CELL VOLUME 88.7 fl (80-96); MEAN PLT VOLUME 7.2 fl (7.5-11.1); MONO % 19.4 % (3.8-10.2); NEUT % 53.2 % (42.8-82.8); PLATELET COUNT 167 10^3/uL (134-434); RBC 4.18 M/mm3 (4.00-5.60); RDW 12.6 % (11.9-15.9); WHITE BLOOD COUNT 2.1 K/mm3 (4.0-10.0)
[2022-06-21] MEDS: GABAPENTIN 300 MG CAPSULE PO SCH ×2 (09:43→21:18)
[2022-06-21] MEDS: valACYclovir HCL 500 MG TABLET (FP) PO SCH ×2 (09:43→21:19)
[2022-06-21] MEDS: AZITHROMYCIN 600 MG TABLET PO SCH (09:43)
[2022-06-21] MEDS: POTASSIUM CHLORIDE TABS 20 MEQ TABLET.ER (FP) PO SCH ×2 (09:43→21:18)
[2022-06-21 09:56] LABS: CHLORIDE 100 mmol/L (98-107); SODIUM 134 mmol/L (136-145)
[2022-06-21 10:07] LABS: CALCIUM 9.2 mg/dL (8.5-10.1)
[2022-06-21 10:08] LABS: ALBUMIN 2.9 g/dl (3.4-5.0); BLOOD UREA NITROGEN 12.2 mg/dL (7-18); CO2 22 mmol/L (21-32); GLUCOSE,RANDOM 116 mg/dL (74-106); MAGNESIUM 1.6 mg/dL (1.8-2.4)
[2022-06-21 10:11] LABS: CREATININE 0.5 mg/dL (0.55-1.3); PHOSPHOROUS 3.7 mg/dL (2.5-4.9); SGOT/AST 19 U/L (15-37); SGPT/ALT 26 U/L (13-61)
[2022-06-21 10:12] LABS: TOT PROT 7.7 g/dl (6.4-8.2)
[2022-06-21 10:13] LABS: ALK PHOS 112 U/L (45-117); BILIRUBIN,TOTAL 0.9 mg/dL (0.2-1)
[2022-06-21] MEDS ORDERED: IBUPROFEN 800 MG/8 ML IJ IVPB PRN (10:26)
[2022-06-21 10:27] LABS: ANION GAP 12 MMOL/L (8-16)
[2022-06-21] MEDS ORDERED: ACETAMINOPHEN 1000 MG/100 ML BAG IVPB SCH (10:30)
[2022-06-21] MEDS ORDERED: POTASSIUM CHLORIDE ORAL LIQUID 20 MEQ/15 ML PO ONE (10:33)
[2022-06-21] MEDS: PANTOPRAZOLE SODIUM 40 MG VIAL IVPUSH SCH (11:11)
[2022-06-21] MEDS: FLUCYTOSINE 500 MG CAPSULE PO SCH ×4 (11:53→21:22)
[2022-06-21] MEDS ORDERED: AMINO ACIDS 4.25%/D5W 1,000 ML IV SCH (13:00)
[2022-06-21] MEDS ORDERED: MAGNESIUM SULF 50% (8.12 MEQ/2 ML-1 GM VIAL) IVPB ONE (13:05)
[2022-06-21] MEDS ORDERED: SODIUM CHLORIDE 0.9% 500 ML INFUS.BAG IV ONE (13:22)
[2022-06-21] MEDS: ACETAMINOPHEN 1000 MG/100 ML BAG IVPB SCH (17:18)
[2022-06-21] MEDS: AMPHOTERICIN B LIPOSOMAL IVPB SCH (17:42)
[2022-06-21] MEDS: DEXTROSE 5% IVPB SCH (17:42)
[2022-06-21] MEDS: WATER IVPB SCH (17:42)
[2022-06-21] MEDS: POTASSIUM CHLORIDE 40 MEQ in AMINO ACIDS 4.25%/D5W 1,000 ML IV SCH (20:59)
[2022-06-21] MEDS ORDERED: NORTRIPTYLINE HCL 25 MG CAPSULE PO SCH (22:00)
[2022-06-22] MEDS: ONDANSETRON 4 MG/2 ML VIAL IVPUSH SCH ×6 (01:04→21:16)
[2022-06-22] MEDS: NYSTATIN 500,000 UNITS/5 ML SUSPENSION PO SCH ×4 (01:04→17:30)
[2022-06-22] MEDS: ACETAMINOPHEN 1000 MG/100 ML BAG IVPB SCH ×3 (01:15→17:23)
[2022-06-22] MEDS: PANTOPRAZOLE SODIUM 40 MG VIAL IVPUSH SCH (09:44)
[2022-06-22] MEDS: SULFAMETHOXAZOLE/TRIMETHOPRIM 800MG/160MG D.S. TABLET PO SCH (09:44)
[2022-06-22] MEDS: POTASSIUM CHLORIDE TABS 20 MEQ TABLET.ER (FP) PO SCH ×2 (09:44→21:17)
[2022-06-22] MEDS: valACYclovir HCL 500 MG TABLET (FP) PO SCH ×2 (09:51→21:16)
[2022-06-22] MEDS: FLUCYTOSINE 500 MG CAPSULE PO SCH ×4 (09:52→21:17)
[2022-06-22 11:28] LABS: MCH 31.2 pg (25.7-33.7); MCHC 35.2 g/dl (32.0-35.9); MEAN CELL VOLUME 88.7 fl (80-96); MEAN PLT VOLUME 7.1 fl (7.5-11.1); PLATELET COUNT 154 10^3/uL (134-434); RBC 4.17 M/mm3 (4.00-5.60); RDW 12.8 % (11.9-15.9)
[2022-06-22 11:45] LABS: WHITE BLOOD COUNT 1.4 K/mm3 (4.0-10.0)
[2022-06-22 12:07] LABS: ANISOCYTOSIS 0; MACROCYTOSIS 0
[2022-06-22 12:28] LABS: CHLORIDE 103 mmol/L (98-107); SODIUM 134 mmol/L (136-145)
[2022-06-22] MEDS: MIRTAZAPINE 15 MG TABLET (FP) PO SCH (12:31)
[2022-06-22 12:39] LABS: ALBUMIN 2.8 g/dl (3.4-5.0); BLOOD UREA NITROGEN 12.2 mg/dL (7-18); CALCIUM 8.9 mg/dL (8.5-10.1)
[2022-06-22 12:40] LABS: CO2 23 mmol/L (21-32); GLUCOSE,RANDOM 126 mg/dL (74-106); MAGNESIUM 1.7 mg/dL (1.8-2.4)
[2022-06-22 12:42] LABS: CREATININE 0.5 mg/dL (0.55-1.3); PHOSPHOROUS 3.4 mg/dL (2.5-4.9); SGOT/AST 15 U/L (15-37); SGPT/ALT 24 U/L (13-61)
[2022-06-22 12:44] LABS: BILIRUBIN,TOTAL 0.8 mg/dL (0.2-1); TOT PROT 7.2 g/dl (6.4-8.2)
[2022-06-22 12:45] LABS: ALK PHOS 103 U/L (45-117)
[2022-06-22 12:48] LABS: ANION GAP 9 MMOL/L (8-16)
[2022-06-22] MEDS: GABAPENTIN 300 MG CAPSULE PO SCH ×2 (13:24→21:17)
[2022-06-22] MEDS: KCL 10 MEQ IVPB 10 MEQ/100 ML INFUS.BAG IVPB SCH ×3 (14:10→18:33)
[2022-06-22] MEDS: POTASSIUM CHLORIDE 40 MEQ in AMINO ACIDS 4.25%/D5W 1,000 ML IV SCH (14:19)
[2022-06-22 14:33] LABS: WHITE BLOOD COUNT 1.4 K/mm3 (4.0-10.0)
[2022-06-22] MEDS: AMPHOTERICIN B LIPOSOMAL IVPB SCH (16:16)
[2022-06-22] MEDS: DEXTROSE 5% IVPB SCH (16:16)
[2022-06-22] MEDS: WATER IVPB SCH (16:16)
[2022-06-23] MEDS: ONDANSETRON 4 MG/2 ML VIAL IVPUSH SCH ×5 (00:29→17:25)
[2022-06-23] MEDS: NYSTATIN 500,000 UNITS/5 ML SUSPENSION PO SCH ×4 (00:29→17:28)
[2022-06-23] MEDS: ACETAMINOPHEN 1000 MG/100 ML BAG IVPB SCH ×3 (02:33→17:29)
[2022-06-23] MEDS: GABAPENTIN 300 MG CAPSULE PO SCH ×3 (05:50→22:32)
[2022-06-23 09:26] LABS: HEMATOCRIT 37.6 % (35.4-49); HEMOGLOBIN 13.1 GM/dL (11.7-16.9); MCH 31.3 pg (25.7-33.7); MCHC 34.9 g/dl (32.0-35.9); MEAN CELL VOLUME 89.8 fl (80-96); MEAN PLT VOLUME 7.4 fl (7.5-11.1); PLATELET COUNT 155 10^3/uL (134-434); RBC 4.19 M/mm3 (4.00-5.60); RDW 12.8 % (11.9-15.9)
[2022-06-23 09:37] LABS: CHLORIDE 108 mmol/L (98-107); SODIUM 140 mmol/L (136-145)
[2022-06-23 09:40] LABS: CALCIUM 9.3 mg/dL (8.5-10.1)
[2022-06-23 09:41] LABS: ALBUMIN 2.9 g/dl (3.4-5.0); BLOOD UREA NITROGEN 15.5 mg/dL (7-18); CO2 23 mmol/L (21-32); GLUCOSE,RANDOM 101 mg/dL (74-106); MAGNESIUM 1.7 mg/dL (1.8-2.4)
[2022-06-23 09:43] LABS: CREATININE 0.7 mg/dL (0.55-1.3); PHOSPHOROUS 3.6 mg/dL (2.5-4.9); SGOT/AST 17 U/L (15-37); SGPT/ALT 24 U/L (13-61); WHITE BLOOD COUNT 1.9 K/mm3 (4.0-10.0)
[2022-06-23 09:45] LABS: ALK PHOS 100 U/L (45-117); BILIRUBIN,TOTAL 0.8 mg/dL (0.2-1); TOT PROT 7.4 g/dl (6.4-8.2)
[2022-06-23 09:46] LABS: ANION GAP 9 MMOL/L (8-16)
[2022-06-23] MEDS: PANTOPRAZOLE SODIUM 40 MG VIAL IVPUSH SCH (09:56)
[2022-06-23] MEDS: MIRTAZAPINE 15 MG TABLET (FP) PO SCH (09:57)
[2022-06-23] MEDS: valACYclovir HCL 500 MG TABLET (FP) PO SCH ×2 (09:58→22:32)
[2022-06-23] MEDS: POTASSIUM CHLORIDE TABS 20 MEQ TABLET.ER (FP) PO SCH ×2 (09:58→22:32)
[2022-06-23] MEDS: FLUCYTOSINE 500 MG CAPSULE PO SCH ×4 (10:00→22:33)
[2022-06-23 10:48] LABS: ANISOCYTOSIS 1+; MACROCYTOSIS 0; PLATELET ESTIMATE DECREASED
[2022-06-23] MEDS ORDERED: MAGNESIUM SULF 50% (8.12 MEQ/2 ML-1 GM VIAL) IVPB ONE (11:15)
[2022-06-23 14:28] LABS: CSF APPEARANCE CLEAR (CLEAR); CSF COLOR COLORLESS (COLORLESS); CSF WBC 42 mm3 (0-5)
[2022-06-23] MEDS: POTASSIUM CHLORIDE 40 MEQ in AMINO ACIDS 4.25%/D5W 1,000 ML IV SCH (14:40)
[2022-06-23 14:47] LABS: BF GLUCOSE (CSF ONLY) 18 mg/dL (40-70)
[2022-06-23] MEDS ORDERED: POTASSIUM CHLORIDE TABS 20 MEQ TABLET.ER (FP) PO ONE (15:15)
[2022-06-23] MEDS ORDERED: ONDANSETRON 4 MG/2 ML VIAL IVPUSH PRN (17:24)
[2022-06-23] MEDS: WATER IVPB SCH (17:57)
[2022-06-23] MEDS: DEXTROSE 5% IVPB SCH (17:57)
[2022-06-23] MEDS: AMPHOTERICIN B LIPOSOMAL IVPB SCH (17:57)
[2022-06-23] MEDS: MAGNESIUM OXIDE 400 MG TABLET (FP) PO SCH (22:32)
[2022-06-23 22:45] VITALS: RESP 18
[2022-06-24] MEDS: NYSTATIN 500,000 UNITS/5 ML SUSPENSION PO SCH ×4 (01:52→17:29)
[2022-06-24] MEDS: ACETAMINOPHEN 1000 MG/100 ML BAG IVPB SCH ×3 (01:53→17:27)
[2022-06-24] MEDS: POTASSIUM CHLORIDE 40 MEQ in AMINO ACIDS 4.25%/D5W 1,000 ML IV SCH (01:53)
[2022-06-24] MEDS: GABAPENTIN 300 MG CAPSULE PO SCH ×3 (06:04→22:22)
[2022-06-24] MEDS: valACYclovir HCL 500 MG TABLET (FP) PO SCH ×2 (09:07→22:22)
[2022-06-24] MEDS: PANTOPRAZOLE SODIUM 40 MG VIAL IVPUSH SCH (09:07)
[2022-06-24] MEDS: POTASSIUM CHLORIDE TABS 20 MEQ TABLET.ER (FP) PO SCH (09:07)
[2022-06-24] MEDS: MIRTAZAPINE 15 MG TABLET (FP) PO SCH (09:08)
[2022-06-24] MEDS: FLUCYTOSINE 500 MG CAPSULE PO SCH ×4 (09:09→22:23)
[2022-06-24] MEDS: MAGNESIUM OXIDE 400 MG TABLET (FP) PO SCH ×2 (09:10→22:22)
[2022-06-24] MEDS: SULFAMETHOXAZOLE/TRIMETHOPRIM 800MG/160MG D.S. TABLET PO SCH (09:10)
[2022-06-24] MEDS: AZITHROMYCIN 600 MG TABLET PO SCH (09:12)
[2022-06-24 09:41] LABS: HEMATOCRIT 35.1 % (35.4-49); HEMOGLOBIN 12.1 GM/dL (11.7-16.9); MCH 31.2 pg (25.7-33.7); MCHC 34.6 g/dl (32.0-35.9); MEAN CELL VOLUME 90.1 fl (80-96); PLATELET COUNT 128 10^3/uL (134-434); RBC 3.89 M/mm3 (4.00-5.60); RDW 13.1 % (11.9-15.9); WHITE BLOOD COUNT 2.1 K/mm3 (4.0-10.0)
[2022-06-24 10:09] LABS: ALBUMIN 2.7 g/dl (3.4-5.0); BLOOD UREA NITROGEN 28.3 mg/dL (7-18); MAGNESIUM 2.1 mg/dL (1.8-2.4)
[2022-06-24 10:12] LABS: CREATININE 0.8 mg/dL (0.55-1.3); PHOSPHOROUS 3.5 mg/dL (2.5-4.9)
[2022-06-24 10:13] LABS: BILIRUBIN,TOTAL 0.8 mg/dL (0.2-1); TOT PROT 6.8 g/dl (6.4-8.2)
[2022-06-24 10:27] LABS: ANISOCYTOSIS 0; MACROCYTOSIS 0
[2022-06-24] MEDS: DEXTROSE 5% IVPB SCH (17:28)
[2022-06-24] MEDS: WATER IVPB SCH (17:28)
[2022-06-24] MEDS: AMPHOTERICIN B LIPOSOMAL IVPB SCH (17:28)
[2022-06-24] MEDS ORDERED: POTASSIUM CHLORIDE TABS 20 MEQ TABLET.ER (FP) PO ONE (20:00)
[2022-06-25 00:02] VITALS: BP 134/81; PULSE 81; TEMP 98.1
[2022-06-25] MEDS ORDERED: POTASSIUM CHLORIDE TABS 20 MEQ TABLET.ER (FP) PO SCH (10:00)
== END 2022-06-25 00:10 | disposition short-term general hospital (02) | DRG 892 ==
LOC: JER 22:35 → JERBED 06-08 01:16 → OBSVTOIN 06-08 04:39 → J4S 06-09 07:47 → J6S 06-19 17:56
PROVIDERS: ADMIT Internal Medicine; ATTEND Internal Medicine
PROC: 009U3ZX Drainage of Spinal Canal, Percutaneous Approach, Diagnostic (ICD-10-PCS; principal; 2022-06-11)
PROC: 009U3ZX Drainage of Spinal Canal, Percutaneous Approach, Diagnostic (ICD-10-PCS; 2022-06-16)
PROC: 009U3ZX Drainage of Spinal Canal, Percutaneous Approach, Diagnostic (ICD-10-PCS; 2022-06-23)
DX: B45.1 Cerebral cryptococcosis (principal); B20 Human immunodeficiency virus [HIV] disease; D72.819 Decreased white blood cell count, unspecified; E87.6 Hypokalemia; H54.3 Unqualified visual loss, both eyes; H91.93 Unspecified hearing loss, bilateral; R51.9 Headache, unspecified
CPT/HCPCS: 0241U-QW; 36415; 62272; 70450-TC; 70552-TC; 71045-TC-FY; 71260-TC; 72125-TC; 72141-TC; 72142-TC; 74177-TC; 80048; 80053; 80061; 80307; 81003; 82436; 82550; 82945; 82962; 83036; 83615; 83735; 83930; 83935; 84100; 84133; 84157; 84300; 84484; 85025; 85610; 85730; 86359; 86360; 86480; 86592; 86617; 86644; 86645; 86663; 86664; 86665; 86694; 86735; 86765; 86777; 86780; 86787; 86788; 86789; 86803; 86850; 86900; 86901; 87070; 87077; 87102; 87106; 87205; 87210; 87340; 87389; 87449; 87476; 87517; 87529; 87536; 87899; 93005; 93010; 97116-GP; 97161-GP; 99285-25; C9803-CS; G0008; G0378; J0289; Q2036; Q9967; U0003; U0005

== ENCOUNTER 2022-09-14 15:19 | Emergency (ER) | payer OTHER ==
[2022-09-14] MEDS ORDERED: SODIUM CHLORIDE 0.9% 500 ML INFUS.BAG IV ONE (16:01)
[2022-09-14] MEDS ORDERED: LACTATED RINGERS SOLUTION 1000 ML INFUS.BAG IV ONE (16:03)
[2022-09-14] MEDS ORDERED: KETOROLAC TROMETHAMINE 15 MG/ML VIAL IVPUSH ONE (16:04)
[2022-09-14] MEDS ORDERED: METOCLOPRAMIDE HCL INJECTION 10 MG/2 ML VIAL IVPUSH ONE (16:04)
[2022-09-14 16:06] VITALS: TEMP 98.4; BMI 25.8
[2022-09-14 16:27] LABS: VENOUS BASE EXCESS -2.4 mmol/L (-2-2); VENOUS PCO2 33.1 mmHg (38-52); VENOUS PH 7.428 (7.310-7.410)
[2022-09-14] MEDS ORDERED: METOCLOPRAMIDE HCL INJECTION 10 MG/2 ML VIAL ONE (16:37)
[2022-09-14] MEDS ORDERED: KETOROLAC TROMETHAMINE 15 MG/ML VIAL ONE (16:37)
[2022-09-14 16:41] LABS: BASO % 2.4 % (0-2.0); EOS % 0.2 % (0-4.5); HEMATOCRIT 26.6 % (35.4-49); HEMOGLOBIN 9.3 GM/dL (11.7-16.9); LYMPH % 27.1 % (8-40); MCH 31.6 pg (25.7-33.7); MEAN CELL VOLUME 90.5 fl (80-96); MEAN PLT VOLUME 7.4 fl (7.5-11.1); MONO % 13.9 % (3.8-10.2); NEUT % 56.4 % (42.8-82.8); PLATELET COUNT 169 10^3/uL (134-434); RBC 2.94 M/mm3 (4.00-5.60); RDW 14.4 % (11.9-15.9)
[2022-09-14 16:47] LABS: INR 1.28 (0.83-1.09); PROTHROMBIN TIME (PATIENT) 14.8 SEC (9.7-13.0); WHITE BLOOD COUNT 1.2 K/mm3 (4.0-10.0)
[2022-09-14 16:50] LABS: ACTIVATED PTT 41.3 SECONDS (25.2-36.5)
[2022-09-14] MEDS ORDERED: CEFEPIME HCL/D5W 2 GM/50 ML BAG IVPB ONE (16:53)
[2022-09-14] MEDS ORDERED: VANCOMYCIN 1 GM in D5W (PRE-DOCKED) 1,000 MG/250 ML (RESTRICTED TO ID ONLY IVPB ONE (16:53)
[2022-09-14 16:56] LABS: CHLORIDE 101 mmol/L (98-107); SODIUM 132 mmol/L (136-145)
[2022-09-14 16:58] LABS: CALCIUM 8.2 mg/dL (8.5-10.1)
[2022-09-14 16:59] LABS: ALBUMIN 3.3 g/dl (3.4-5.0); ANION GAP 9 MMOL/L (8-16); CO2 23 mmol/L (21-32); GLUCOSE,RANDOM 105 mg/dL (74-106)
[2022-09-14 17:02] LABS: CREATININE 0.9 mg/dL (0.55-1.3); SGOT/AST 24 U/L (15-37); SGPT/ALT 21 U/L (13-61)
[2022-09-14 17:03] LABS: BILIRUBIN,TOTAL 0.5 mg/dL (0.2-1); TOT PROT 7.7 g/dl (6.4-8.2)
[2022-09-14 17:05] LABS: ALK PHOS 82 U/L (45-117)
[2022-09-14] MEDS ORDERED: VANCOMYCIN/WATER FOR INJ (PEG) 1,000 MG/200 ML BAG IVPB ONE (17:07)
[2022-09-14] MEDS ORDERED: POTASSIUM CHLORIDE ORAL LIQUID 20 MEQ/15 ML PO ONE (17:10)
[2022-09-14] MEDS ORDERED: POTASSIUM CHLORIDE ORAL LIQUID 20 MEQ/15 ML ONE (17:16)
[2022-09-14 17:25] LABS: ANISOCYTOSIS 2+; MACROCYTOSIS 0
[2022-09-14] MEDS ORDERED: CEFEPIME 2 GM in DEXTROSE 5%-WATER 100 ML IVPB ONE (17:30)
[2022-09-14] MEDS ORDERED: ACYCLOVIR INJECTION 700 MG in DEXTROSE 5%-WATER - 100 ML IVPB ONE (18:33)
[2022-09-14] MEDS ORDERED: ACYCLOVIR IVPB ONE (18:35)
[2022-09-14] MEDS ORDERED: WATER IVPB ONE (18:35)
[2022-09-14] MEDS ORDERED: DEXTROSE 5% IVPB ONE (18:35)
[2022-09-14 18:38] LABS: PH,URINE 6.5 (5.0-8.0); URINE APPEARANCE CLEAR; URINE BILIRUBIN NEGATIVE (NEGATIVE); URINE COLOR YELLOW; URINE GLUCOSE (UA) NEGATIVE (NEGATIVE); URINE KETONE NEGATIVE (NEGATIVE); URINE LEUK ESTERASE NEGATIVE (NEGATIVE); URINE NITRITE NEGATIVE (NEGATIVE); URINE PROTEIN NEGATIVE (NEGATIVE); URINE UROBILINOGEN 0.2 mg/dL (0.2-1.0)
[2022-09-14 18:39] VITALS: BP 108/68; PULSE 79
[2022-09-14 20:04] VITALS: RESP 19
== END 2022-09-14 19:48 | disposition short-term general hospital (02) ==
LOC: JER 15:19
PROC: 3E033GC Introduction of Other Therapeutic Substance into Peripheral Vein, Percutaneous Approach (ICD-10-PCS; principal; 2022-09-14)
DX: D70.9 Neutropenia, unspecified (principal); R51.9 Headache, unspecified; M54.2 Cervicalgia; Z20.822 Contact with and (suspected) exposure to COVID-19
CPT/HCPCS: 0241U-QW; 36415; 70450-TC; 71045-TC-FY; 80053; 81003; 82550; 82553; 82803; 83605; 84484; 85025; 85610; 85730; 86850; 86900; 86901; 87040; 87086; 93005; 93010; 96365; 96367; 96375; 99285-25

== ENCOUNTER 2023-05-07 11:26 | Inpatient (IN) | payer OTHER ==
[2023-05-07] MEDS ORDERED: morphine CARPU-JECT 4 MG/1 ML DISP.SYRIN IVPUSH ONE (15:13)
[2023-05-07] MEDS ORDERED: ONDANSETRON 4 MG/2 ML VIAL IVPUSH ONE (15:26)
[2023-05-07] MEDS ORDERED: SODIUM CHLORIDE 0.9% 500 ML INFUS.BAG IV ONE (15:26)
[2023-05-07] MEDS ORDERED: morphine SULFATE 4 MG/ML VIAL ONE (16:06)
[2023-05-07] MEDS ORDERED: ONDANSETRON 4 MG/2 ML VIAL ONE (16:06)
[2023-05-07 16:11] LABS: BASO % 0.5 % (0-2.0); EOS % 2.4 % (0-4.5); HEMATOCRIT 38.1 % (35.4-49); HEMOGLOBIN 13.2 GM/dL (11.7-16.9); LYMPH % 18.7 % (8-40); MCH 31.4 pg (25.7-33.7); MCHC 34.7 g/dl (32.0-35.9); MEAN CELL VOLUME 90.3 fl (80-96); MEAN PLT VOLUME 7.4 fl (7.5-11.1); MONO % 4.6 % (3.8-10.2); NEUT % 73.8 % (42.8-82.8); PLATELET COUNT 205 10^3/uL (134-434); RBC 4.22 M/mm3 (4.00-5.60); RDW 15.4 % (11.9-15.9); WHITE BLOOD COUNT 8.9 K/mm3 (4.0-10.0)
[2023-05-07 16:28] LABS: POTASSIUM 3.8 mmol/L (3.5-5.1)
[2023-05-07 16:29] LABS: INR 1.17 (0.83-1.09); PROTHROMBIN TIME (PATIENT) 13.6 SEC (9.7-13.0)
[2023-05-07 16:30] LABS: BLOOD UREA NITROGEN 7.9 mg/dL (7-18); CALCIUM 8.6 mg/dL (8.5-10.1)
[2023-05-07 16:31] LABS: ALBUMIN 3.6 g/dl (3.4-5.0)
[2023-05-07 16:32] LABS: ACTIVATED PTT 34.8 SECONDS (25.2-36.5)
[2023-05-07 16:34] LABS: CREATININE 0.7 mg/dL (0.55-1.3)
[2023-05-07 16:35] LABS: BILIRUBIN,TOTAL 0.8 mg/dL (0.2-1); TOT PROT 8.1 g/dl (6.4-8.2)
[2023-05-07 16:56] LABS: ERYTHROCYTE SEDIMENTATION RATE 77 mm/hr (0-10)
[2023-05-07] MEDS ORDERED: KETOROLAC TROMETHAMINE 15 MG/ML VIAL IVPUSH ONE (17:24)
[2023-05-07] MEDS ORDERED: PIPERACILLIN/TAZOB 4.5 GM 4.5 GM in DEXTROSE 5%-WATER 100 ML IVPB ONE (17:24)
[2023-05-07] MEDS ORDERED: VANCOMYCIN 1,000 MG in DEXTROSE 5%-WATER - 250 ML IVPB ONE (17:24)
[2023-05-07] MEDS ORDERED: KETOROLAC TROMETHAMINE 15 MG/ML VIAL ONE (17:34)
[2023-05-07] MEDS ORDERED: PIPERACILLIN/TAZOB 4.5 GM 4.5 GM/100 ML BAG IVPB ONE (17:34)
[2023-05-07] MEDS ORDERED: VANCOMYCIN 1 GRAM (PRE-DOCKED) 1,000 MG/250 ML BAG IVPB ONE (17:34)
[2023-05-07] MEDS ORDERED: REMDESIVIR 200 MG in SODIUM CHLORIDE 250 ML IVPB ONE (21:45)
[2023-05-07] MEDS: SODIUM CHLORIDE 1,000 ML IV SCH (21:55)
[2023-05-07] MEDS ORDERED: ACETAMINOPHEN 1000 MG/100 ML BAG IVPB PRN (22:07)
[2023-05-08] MEDS: PIPERACILLIN/TAZOB 3.375 GM 3.375 GM in DEXTROSE 5%-WATER - 50 ML IVPB SCH ×4 (01:11→17:38)
[2023-05-08] MEDS: LIDOCAINE PATCH REMOVAL MC SCH ×2 (01:25→22:37)
[2023-05-08 02:05] VITALS: BMI 28.5
[2023-05-08 08:44] LABS: HEMATOCRIT 35.4 % (35.4-49); HEMOGLOBIN 12.7 GM/dL (11.7-16.9); MCH 32.2 pg (25.7-33.7); MCHC 35.8 g/dl (32.0-35.9); MEAN CELL VOLUME 90.1 fl (80-96); MEAN PLT VOLUME 7.5 fl (7.5-11.1); PLATELET COUNT 190 10^3/uL (134-434); RBC 3.93 M/mm3 (4.00-5.60); RDW 15.2 % (11.9-15.9); WHITE BLOOD COUNT 9.7 K/mm3 (4.0-10.0)
[2023-05-08 09:09] LABS: POTASSIUM 3.1 mmol/L (3.5-5.1)
[2023-05-08 09:13] LABS: CALCIUM 8.3 mg/dL (8.5-10.1)
[2023-05-08 09:14] LABS: BLOOD UREA NITROGEN 7.5 mg/dL (7-18)
[2023-05-08 09:17] LABS: CREATININE 0.6 mg/dL (0.55-1.3)
[2023-05-08] MEDS: ATOVAQUONE 750 MG/5 ML (UNIT-DOSE PACKAGING) PO SCH (09:31)
[2023-05-08] MEDS: BICTEGRAV/EMTRICIT/TENOFOV (BIKTARVY) 50-200-25 MG TABLET PO SCH (09:31)
[2023-05-08] MEDS: FLUCONAZOLE 100 MG TABLET (UD) PO SCH (09:31)
[2023-05-08] MEDS: LIDOCAINE 4% PATCH TP SCH (09:32)
[2023-05-08] MEDS ORDERED: ENOXAPARIN NA (PORCINE) 40 MG/0.4 ML DISP.SYRIN SQ SCH (10:00)
[2023-05-08] MEDS: POLYETHYLENE GLYCOL (HEALTHYLAX) 3350 17 GM PACKET PO SCH (11:21)
[2023-05-08] MEDS: POTASSIUM CHLORIDE ORAL LIQUID 20 MEQ/15 ML PO SCH ×2 (13:26→22:38)
[2023-05-08] MEDS: traMADol HCL 50 MG TABLET PO PRN (17:42)
[2023-05-08] MEDS: VANCOMYCIN/WATER FOR INJ (PEG) 1,000 MG/200 ML BAG IVPB SCH (18:33)
[2023-05-08] MEDS: SODIUM CHLORIDE 1,000 ML IV SCH (22:31)
[2023-05-08] MEDS: REMDESIVIR 100 MG in SODIUM CHLORIDE 250 ML IVPB SCH (22:35)
[2023-05-09] MEDS: PIPERACILLIN/TAZOB 3.375 GM 3.375 GM in DEXTROSE 5%-WATER - 50 ML IVPB SCH ×3 (02:00→11:33)
[2023-05-09] MEDS: VANCOMYCIN/WATER FOR INJ (PEG) 1,000 MG/200 ML BAG IVPB SCH ×2 (07:45→16:34)
[2023-05-09 09:37] LABS: BASO % 0.6 % (0-2.0); EOS % 4.3 % (0-4.5); HEMATOCRIT 33.8 % (35.4-49); LYMPH % 18.8 % (8-40); MCH 32.1 pg (25.7-33.7); MCHC 35.6 g/dl (32.0-35.9); MEAN PLT VOLUME 7.3 fl (7.5-11.1); MONO % 6.2 % (3.8-10.2); NEUT % 70.1 % (42.8-82.8); PLATELET COUNT 194 10^3/uL (134-434); RBC 3.75 M/mm3 (4.00-5.60); WHITE BLOOD COUNT 7.2 K/mm3 (4.0-10.0)
[2023-05-09] MEDS ORDERED: REMDESIVIR 100 MG in SODIUM CHLORIDE 250 ML IVPB SCH (10:00)
[2023-05-09] MEDS: LIDOCAINE 4% PATCH TP SCH (10:30)
[2023-05-09] MEDS: POLYETHYLENE GLYCOL (HEALTHYLAX) 3350 17 GM PACKET PO SCH (10:30)
[2023-05-09] MEDS: ATOVAQUONE 750 MG/5 ML (UNIT-DOSE PACKAGING) PO SCH (10:32)
[2023-05-09] MEDS: BICTEGRAV/EMTRICIT/TENOFOV (BIKTARVY) 50-200-25 MG TABLET PO SCH (10:32)
[2023-05-09] MEDS: FLUCONAZOLE 100 MG TABLET (UD) PO SCH (10:32)
[2023-05-09 10:49] LABS: POTASSIUM 3.3 mmol/L (3.5-5.1)
[2023-05-09 10:54] LABS: BLOOD UREA NITROGEN 9.9 mg/dL (7-18)
[2023-05-09 10:55] LABS: ALBUMIN 2.9 g/dl (3.4-5.0); MAGNESIUM 1.9 mg/dL (1.8-2.4)
[2023-05-09 10:57] LABS: CREATININE 0.6 mg/dL (0.55-1.3)
[2023-05-09 10:59] LABS: BILIRUBIN,TOTAL 0.8 mg/dL (0.2-1)
[2023-05-09] MEDS: POTASSIUM CHLORIDE ORAL LIQUID 20 MEQ/15 ML PO SCH ×2 (16:27→22:52)
[2023-05-09] MEDS: CLINDAMYCIN 600MG PREMIX IVPB 600 MG/50 ML BAG IVPB SCH (17:59)
[2023-05-09] MEDS: CEFTRIAXONE 2 GM in DEXTROSE 5%-WATER 100 ML IVPB SCH (18:35)
[2023-05-09] MEDS: traMADol HCL 50 MG TABLET PO PRN (18:50)
[2023-05-09] MEDS: REMDESIVIR 100 MG in SODIUM CHLORIDE 250 ML IVPB SCH (22:48)
[2023-05-09] MEDS: LIDOCAINE PATCH REMOVAL MC SCH (22:50)
[2023-05-10] MEDS: CLINDAMYCIN 600MG PREMIX IVPB 600 MG/50 ML BAG IVPB SCH ×3 (01:51→17:51)
[2023-05-10 08:57] LABS: BASO % 1.1 % (0-2.0); EOS % 5.5 % (0-4.5); HEMATOCRIT 36.6 % (35.4-49); HEMOGLOBIN 12.9 GM/dL (11.7-16.9); LYMPH % 20.8 % (8-40); MCH 31.3 pg (25.7-33.7); MCHC 35.2 g/dl (32.0-35.9); MEAN PLT VOLUME 7.3 fl (7.5-11.1); MONO % 5.2 % (3.8-10.2); NEUT % 67.4 % (42.8-82.8); PLATELET COUNT 252 10^3/uL (134-434); RBC 4.11 M/mm3 (4.00-5.60); WHITE BLOOD COUNT 5.5 K/mm3 (4.0-10.0)
[2023-05-10] MEDS: CEFTRIAXONE 2 GM in DEXTROSE 5%-WATER 100 ML IVPB SCH (09:28)
[2023-05-10] MEDS: BICTEGRAV/EMTRICIT/TENOFOV (BIKTARVY) 50-200-25 MG TABLET PO SCH (09:28)
[2023-05-10] MEDS: FLUCONAZOLE 100 MG TABLET (UD) PO SCH (09:29)
[2023-05-10] MEDS: ATOVAQUONE 750 MG/5 ML (UNIT-DOSE PACKAGING) PO SCH (09:30)
[2023-05-10] MEDS: LIDOCAINE 4% PATCH TP SCH (09:31)
[2023-05-10] MEDS: POLYETHYLENE GLYCOL (HEALTHYLAX) 3350 17 GM PACKET PO SCH (09:32)
[2023-05-10 10:14] LABS: POTASSIUM 3.4 mmol/L (3.5-5.1)
[2023-05-10 10:21] LABS: ALBUMIN 3.1 g/dl (3.4-5.0); BLOOD UREA NITROGEN 13.2 mg/dL (7-18); MAGNESIUM 1.9 mg/dL (1.8-2.4)
[2023-05-10 10:22] LABS: CALCIUM 8.5 mg/dL (8.5-10.1)
[2023-05-10 10:24] LABS: CREATININE 0.6 mg/dL (0.55-1.3)
[2023-05-10 10:26] LABS: BILIRUBIN,TOTAL 0.6 mg/dL (0.2-1); TOT PROT 7.5 g/dl (6.4-8.2)
[2023-05-10] MEDS: POTASSIUM CHLORIDE TABS 20 MEQ TABLET.ER (FP) PO SCH ×2 (11:38→22:11)
[2023-05-10] MEDS: traMADol HCL 50 MG TABLET PO PRN (16:33)
[2023-05-10] MEDS: LIDOCAINE PATCH REMOVAL MC SCH (22:12)
[2023-05-11] MEDS: CLINDAMYCIN 600MG PREMIX IVPB 600 MG/50 ML BAG IVPB SCH ×3 (03:02→18:29)
[2023-05-11 09:47] LABS: BASO % 1.2 % (0-2.0); EOS % 11.5 % (0-4.5); HEMATOCRIT 37.8 % (35.4-49); HEMOGLOBIN 13.1 GM/dL (11.7-16.9); LYMPH % 35.4 % (8-40); MCH 31.2 pg (25.7-33.7); MCHC 34.8 g/dl (32.0-35.9); MEAN CELL VOLUME 89.8 fl (80-96); MEAN PLT VOLUME 7.4 fl (7.5-11.1); MONO % 7.6 % (3.8-10.2); NEUT % 44.3 % (42.8-82.8); PLATELET COUNT 279 10^3/uL (134-434); RBC 4.21 M/mm3 (4.00-5.60); RDW 14.9 % (11.9-15.9); WHITE BLOOD COUNT 3.2 K/mm3 (4.0-10.0)
[2023-05-11 10:22] LABS: ALBUMIN 3.2 g/dl (3.4-5.0); BLOOD UREA NITROGEN 16.7 mg/dL (7-18); CALCIUM 8.5 mg/dL (8.5-10.1)
[2023-05-11 10:23] LABS: MAGNESIUM 2.1 mg/dL (1.8-2.4)
[2023-05-11 10:25] LABS: CREATININE 0.8 mg/dL (0.55-1.3)
[2023-05-11 10:27] LABS: BILIRUBIN,TOTAL 0.4 mg/dL (0.2-1); TOT PROT 7.5 g/dl (6.4-8.2)
[2023-05-11] MEDS: POLYETHYLENE GLYCOL (HEALTHYLAX) 3350 17 GM PACKET PO SCH ×2 (11:32→11:38)
[2023-05-11] MEDS: CEFTRIAXONE 2 GM in DEXTROSE 5%-WATER 100 ML IVPB SCH (11:32)
[2023-05-11] MEDS: LIDOCAINE 4% PATCH TP SCH (11:32)
[2023-05-11] MEDS: BICTEGRAV/EMTRICIT/TENOFOV (BIKTARVY) 50-200-25 MG TABLET PO SCH (11:34)
[2023-05-11] MEDS: FLUCONAZOLE 100 MG TABLET (UD) PO SCH (11:36)
[2023-05-11] MEDS: ATOVAQUONE 750 MG/5 ML (UNIT-DOSE PACKAGING) PO SCH (11:54)
[2023-05-11 19:08] LABS: URINE APPEARANCE CLEAR; URINE BILIRUBIN NEGATIVE (NEGATIVE); URINE COLOR YELLOW; URINE GLUCOSE (UA) NEGATIVE (NEGATIVE); URINE KETONE NEGATIVE (NEGATIVE); URINE LEUK ESTERASE NEGATIVE (NEGATIVE); URINE NITRITE NEGATIVE (NEGATIVE); URINE PROTEIN NEGATIVE (NEGATIVE); URINE UROBILINOGEN 0.2 mg/dL (0.2-1.0)
[2023-05-11] MEDS: LIDOCAINE PATCH REMOVAL MC SCH (22:58)
[2023-05-12] MEDS: CLINDAMYCIN 600MG PREMIX IVPB 600 MG/50 ML BAG IVPB SCH ×3 (02:54→17:29)
[2023-05-12 09:56] LABS: BASO % 2.5 % (0-2.0); EOS % 9.4 % (0-4.5); HEMATOCRIT 38.7 % (35.4-49); HEMOGLOBIN 13.6 GM/dL (11.7-16.9); LYMPH % 34.9 % (8-40); MCH 31.3 pg (25.7-33.7); MEAN CELL VOLUME 89.5 fl (80-96); MEAN PLT VOLUME 7.3 fl (7.5-11.1); MONO % 4.6 % (3.8-10.2); NEUT % 48.6 % (42.8-82.8); PLATELET COUNT 300 10^3/uL (134-434); RBC 4.33 M/mm3 (4.00-5.60); WHITE BLOOD COUNT 3.5 K/mm3 (4.0-10.0)
[2023-05-12 10:16] LABS: POTASSIUM 3.7 mmol/L (3.5-5.1)
[2023-05-12] MEDS: FLUCONAZOLE 100 MG TABLET (UD) PO SCH (10:21)
[2023-05-12] MEDS: ATOVAQUONE 750 MG/5 ML (UNIT-DOSE PACKAGING) PO SCH (10:21)
[2023-05-12 10:22] LABS: BLOOD UREA NITROGEN 17.1 mg/dL (7-18); CALCIUM 8.7 mg/dL (8.5-10.1)
[2023-05-12] MEDS: BICTEGRAV/EMTRICIT/TENOFOV (BIKTARVY) 50-200-25 MG TABLET PO SCH (10:22)
[2023-05-12 10:23] LABS: ALBUMIN 3.2 g/dl (3.4-5.0)
[2023-05-12] MEDS: LIDOCAINE 4% PATCH TP SCH (10:23)
[2023-05-12] MEDS: CEFTRIAXONE 2 GM in DEXTROSE 5%-WATER 100 ML IVPB SCH (10:23)
[2023-05-12 10:25] LABS: CREATININE 0.8 mg/dL (0.55-1.3)
[2023-05-12] MEDS: POLYETHYLENE GLYCOL (HEALTHYLAX) 3350 17 GM PACKET PO SCH (10:26)
[2023-05-12 10:27] LABS: BILIRUBIN,TOTAL 0.8 mg/dL (0.2-1); TOT PROT 7.7 g/dl (6.4-8.2)
[2023-05-12] MEDS: LIDOCAINE PATCH REMOVAL MC SCH (21:29)
[2023-05-13] MEDS: CLINDAMYCIN 600MG PREMIX IVPB 600 MG/50 ML BAG IVPB SCH ×2 (03:06→09:54)
[2023-05-13] MEDS: ATOVAQUONE 750 MG/5 ML (UNIT-DOSE PACKAGING) PO SCH (09:52)
[2023-05-13] MEDS: LIDOCAINE 4% PATCH TP SCH (09:53)
[2023-05-13] MEDS: BICTEGRAV/EMTRICIT/TENOFOV (BIKTARVY) 50-200-25 MG TABLET PO SCH (09:53)
[2023-05-13] MEDS: POLYETHYLENE GLYCOL (HEALTHYLAX) 3350 17 GM PACKET PO SCH (09:54)
[2023-05-13] MEDS: FLUCONAZOLE 100 MG TABLET (UD) PO SCH (09:54)
[2023-05-13] MEDS: CEFTRIAXONE 2 GM in DEXTROSE 5%-WATER 100 ML IVPB SCH (09:54)
[2023-05-13 12:16] VITALS: BP 112/67; PULSE 68; RESP 18; TEMP 98.1
== END 2023-05-13 12:25 | disposition short-term general hospital (02) | DRG 710 ==
LOC: JER 11:26 → JERBED 17:25 → J8W 05-08 00:55
PROVIDERS: ADMIT Internal Medicine; ATTEND Internal Medicine
PROC: 0W923ZZ Drainage of Face, Percutaneous Approach (ICD-10-PCS; principal; 2023-05-07)
PROC: XW033E5 Introduction of Remdesivir Anti-infective into Peripheral Vein, Percutaneous Approach, New Technology Group 5 (ICD-10-PCS; 2023-05-07)
DX: L02.01 Cutaneous abscess of face (principal); B20 Human immunodeficiency virus [HIV] disease; U07.1 COVID-19; B45.1 Cerebral cryptococcosis; B25.9 Cytomegaloviral disease, unspecified
CPT/HCPCS: 0241U-QW; 36415; 70491-TC; 71045-TC-FY; 71250-TC; 80048; 80053; 81003; 83735; 85025; 85027; 85610; 85651; 85730; 86140; 86359; 86360; 86480; 87040; 87070; 87081; 87102; 87116; 87186; 87205; 87206; 87210; 87635; 93005; 93010; 99285-25; G0463-25; J0248

== ENCOUNTER 2023-08-16 10:19 | Emergency (ER) | payer OTHER ==
[2023-08-16 10:22] VITALS: BP 128/87; PULSE 76; RESP 18; TEMP 98.2; BMI 26.6
== END 2023-08-16 11:37 | disposition home or self-care (01) ==
LOC: JERFT 10:19
DX: R05.9 Cough, unspecified (principal); R51.9 Headache, unspecified; M79.10 Myalgia, unspecified site; J06.9 Acute upper respiratory infection, unspecified
CPT/HCPCS: 71046-TC-FY; 87651; 99284-25